=== PATIENT | female | born 1940 | race Caucasian/White ===

== ENCOUNTER 2017-02-11 15:49 | Inpatient (IN) | payer OTHER, MEDICARE ==
--- NOTE | 2017-02-11 15:53 | PDOC ---
Rapid Medical Evaluation Time Seen by Provider: 02/11/17 15:49 Medical Evaluation: Allergies Allergy/AdvReac Type Severity Reaction Status Date / Time No Known Allergies Allergy Verified 02/12/15 08:16 02/11/17 15:50 Pt presents to the ED:sob x 1week , sent in by PMD Pt on brief exam:vss 96% ra, lcta Pt ordered for: cxr Pt to proceed to the ED Discharge Disposition - Diagnosis SOB (shortness of breath) - Referrals - Patient Instructions - Post Discharge Activity
[2017-02-11 15:54] VITALS: BMI 36.1
--- NOTE | 2017-02-11 19:54 | PDOC ---
History of Present Illness - History of Present Illness Initial Comments: 02/11/17 20:53 The patient is a 76 year old female, with a significant past medical history of COPD, cardiomyopathy, HLD, HTN, who presents to the emergency department with daughter, sent by Dr. Diaz today for evaluation of increased exertional dyspnea and orthopnea for 2 weeks. The patient reportedly was evaluated by Dr. Diaz, prescribed a Z-Pack, which the patient states made the cough much better. She states she had a dry, cough initially, which has since been resolved. The patient states she has become more and more dyspneic when walking up or down the stairs in her home. She states she usually can walk the stairs at home, however, has been very short of breath by the time she gets to the bottom of the staircase. The patient states she sleeps with 3 pillows at baseline because it feels like I will suffocate if I lie flat. Secondarily, she reports her legs intermittently swell, and reports her lower extremities as more swollen today. The patient states she was given an oxygen machine in the past, however, denies using the machine until 2 days ago when she was short of breath at night. She also reports the man came to bring an updated machine today and a new tank. She denies chest pain, headache and dizziness. She denies fever, chills, nausea , vomit, diarrhea and constipation. She denies dysuria, frequency, urgency and hematuria. Allergies: NKDA Social history: non-smoker PCP - Dr. Diaz System Technologist: Dr. Fraire Assistant Manager Airside Operations: Dr. Sorensen (last seen 1 year ago) <Rosmery Oneal - Last Filed: 02/12/17 02:00> <Juan Grant - Last Filed: 02/12/17 02:13> - General Chief Complaint: Shortness of Breath Stated Complaint: PCP SENT/HEART FAILURE Time Seen by Provider: 02/11/17 15:49 Past History <Rosmery Oneal - Last Filed: 02/12/17 02:00> - Past Medical History Cardiac Disorders: Yes (enlarged heart) COPD: Yes HTN: Yes Hypercholesterolemia: Yes Psychiatric Problems: Yes (anxiety) - Suicide/Smoking/Psychosocial Hx Smoking History: Never smoked Hx Alcohol Use: No Drug/Substance Use Hx: No Substance Use Type: None Hx Substance Use Treatment: No <Juan Grant - Last Filed: 02/12/17 02:13> - Past Medical History Allergies/Adverse Reactions: Allergies Allergy/AdvReac Type Severity Reaction Status Date / Time No Known Allergies Allergy Verified 02/11/17 15:51 Home Medications: Ambulatory Orders Atorvastatin Ca [Lipitor] 80 mg PO HS 02/12/15 Isosorbide Mononitrate 30 mg PO DAILY 02/12/15 Metoprolol Tartrate 25 mg PO DAILY 02/12/15 Paroxetine HCl 10 mg PO DAILY 02/12/15 Albuterol 0.083% Nebulizer Basilia [Ventolin 0.083% Nebulizer Soln -] 1 amp NEB Q4HPO #120 amp 02/21/15 Furosemide [Lasix -] 40 mg PO DAILY #30 tablet 02/21/15 Guaifenesin AC [Robitussin AC -] 5 ml PO TID PRN #1 bottle 02/21/15 Tiotropium [place] [Spiriva -] 1 inh PO DAILY #1 inhaler 02/21/15 Valsartan [Diovan] 80 mg PO DAILY #30 tablet 02/21/15 Folic Acid 1 mg PO 02/12/17 Lorazepam 0.5 mg PO DAILY PRN 02/12/17 Review of Systems - Review of Systems Able to Perform ROS?: Yes Comments:: 02/11/17 20:53 CONSTITUTIONAL: No fever, no chills, no fatigue EYES: No visual changes ENT: No ear pain, no sore throat CARDIOVASCULAR: No chest pain, no palpitations RESPIRATORY: (+) dyspnea and orthopnea. No cough, GI: No abdominal pain, no nausea, no vomiting, no constipation, no diarrhea GENITOURINARY: No dysuria, no frequency, no hematuria EXTREMITIES: (+) lower extremity edema MUSKULOSKELETAL: No backpain, no joint pain, no myalgias SKIN: No rash NEURO: No headache <Rosmery Oneal - Last Filed: 02/12/17 02:00> *Physical Exam - Vital Signs Last Vital Signs Temp Pulse Resp BP Pulse Ox 98.4 F 71 28 H 167/88 96 02/11/17 15:51 02/11/17 15:51 02/11/17 15:51 02/11/17 15:51 02/11/17 15:51 - Physical Exam Comments: 02/11/17 20:54 CONSTITUTIONAL: (+) Awake, alert, and oriented x3, in no apparent distress HEAD: Normocephalic; atraumatic EYES: PERRL; EOM intact ENMT: External appears normal; normal oropharynx NECK: Supple; non-tender; no cervical lymphadenopathy CARD: Normal S1, S2; no murmurs, rubs, or gallops RESP: (+) conversational dyspnea. Normal chest excursion with respiration; breath sounds clear and equal bilaterally; no wheezes, rhonchi, or rales ABD: Soft, non-distended; non-tender; no palpable organomegaly, no palpable hernias EXT: (+) 2+ pitting edema to bilateral lower extremities. Normal ROM in all four extremities; non-tender to palpation; distal pulses intact SKIN: Warm, dry, no rash NEURO: No focal neurological deficiencies. <Rosmery Oneal - Last Filed: 02/12/17 02:00> - Vital Signs Last Vital Signs Temp Pulse Resp BP Pulse Ox 98.4 F 71 28 H 167/88 96 02/11/17 15:51 02/11/17 15:51 02/11/17 15:51 02/11/17 15:51 02/11/17 15:51 <Juan Grant - Last Filed: 02/12/17 02:13> Heart Score/ECG Review - ECG Intrepretation Comment:: 02/11/17 21:17 Ekg was read by Dr. Grant at 20:54 Impression: Normal sinus rhythm, left bundle branch block. Unchanged EKG when compared to prior from 04/25/15. <Rosmery Oneal - Last Filed: 02/12/17 02:00> ED Treatment Course - LABORATORY CBC & Chemistry Diagram: 02/11/17 21:00 02/11/17 21:00 - RADIOLOGY Radiograph Interpretation: EXAM#: TYPE/EXAM: RESULT: [id number] RAD/CHEST PA LAT EXAM: CHEST X-RAY-2 VIEWS. INDICATION: Shortness of breath. COMPARISON: 02/12/2015 chest x-ray. FINDINGS: Stable enlargement of the cardiac silhouette. There is no definite pulmonary vascular congestion. There is a small right pleural effusion. There is no consolidation. There is stable linear scarring in the left upper lobe and right midlung. There is subsegmental atelectasis and/or linear scarring in both lung bases. There is no definable pneumothorax. There are degenerative changes in the spine, glenohumeral and acromioclavicular joints. There is calcific atherosclerosis along the thoracic and abdominal aorta. IMPRESSION: Stable enlargement of the cardiac silhouette. Small right pleural effusion. No definite pulmonary vascular congestion. Bibasilar linear atelectasis and/or scarring. Reported By: Triston Wang DO 02/11/17 1609 02/12/17 02:00 EXAM: CTA CHEST Paraesophageal lymphadenopathy, advise followup. No definite PE, but evaluation limited by suboptimal contrast opacification. No aortic dissection or aneurysm. Small right greater than left pleural effusions. Cardiomegaly. Left renal cyst. Diverticulosis colon. Adele Joel M.D. 02/12/2017 01:57 EST <Rosmery Oneal - Last Filed: 02/12/17 02:00> - LABORATORY CBC & Chemistry Diagram: 02/11/17 21:00 02/11/17 21:00 <Juan Grant - Last Filed: 02/12/17 02:13> Medical Decision Making - Medical Decision Making 02/11/17 23:49 prior to being transported her her CT scan, patient states she feels very anxious and would like "something to calm the nerves". 02/12/17 01:47 IO was called ([id number]) after 1 hr of the image being transmitted to [facility] ( 00:47) without an official read from radiologist. The radiology services manager made 1 failed attempt at reaching the "on-Call". Upon 2nd attempt, I spoke another counter sales representative who states she "will send a message to Dr. Joel now" . Chest CTA pending read from [facility], assigned to radiologist, Adele Joel, at 01: 51 <Rosmery Oneal - Last Filed: 02/12/17 02:00> - Medical Decision Making 02/12/17 00:24 Patient 76-year-old female with history of COPD, cardiomyopathy, hypertension who presents to the ER with worsening dyspnea with minimal exertion over the past 7-14 days that was not effectively treated by by mouth Zithromax prescribed by the primary care physician. Patient reports resolution of a nonproductive dry cough upon completion of Zithromax therapy but no further improvement. Patient complains of intermittent increase in the bilateral lower extremity edema despite being compliant with her medication regimen; patient denies chest pain/fever/chills/nausea/vomiting/diarrhea. In the ER, patient is awake and alert, hypoxemic with saturation of 92-94% on room air, clear lungs to auscultation, no murmurs rubs or gallops and +2 pitting edema of the lower extremities. Differential diagnoses includes PE versus CHF exacerbation versus ACS. EKG reveals left bundle branch block which is unchanged from previous. Chest x-ray reveals cardiomegaly and a small right-sided pleural effusion. D- dimer is above 4000. Will rule out with CTA 02/12/17 01:53 Patient underwent CTA of chest with IV contrast. We'll administer a bolus of normal saline at 500 mL we noted to prevent contrast nephropathy followed by Lasix-40 mg IV push for diuresis. <Juan Grant - Last Filed: 02/12/17 02:13> *DC/Admit/Observation/Transfer - Attestations Scribe Attestion: 02/11/17 20:55 Documentation prepared by Rosmery Oneal, acting as paramedical aide for Juan Grant MD <Rosmery Oneal - Last Filed: 02/12/17 02:00> - Discharge Dispostion Admit: Yes - Attestations Physician Attestion: 02/12/17 00:24 The documentation was prepared by the scribe under my direct supervision. I have reviewed the documentation which correctly represents the findings, medical decision-making and critical action taken by me. <Juan Grant - Last Filed: 02/12/17 02:13> Diagnosis at time of Disposition: SOB (shortness of breath), Pleural effusion Acute exacerbation of CHF (congestive heart failure) Qualifiers: Congestive heart failure type: unspecified congestive heart failure type Qualified Code(s): I50.9 - Heart failure, unspecified - Discharge Dispostion Condition at time of disposition: Fair - Referrals Referrals: Princess Mcnamara MD [Primary Care Provider] - - Patient Instructions - Post Discharge Activity
[2017-02-11 21:09] LABS: BASO % 0.7 % (0-2.0); EOS % 4.1 % (0-4.5); HEMATOCRIT 34.9 % (32.4-45.2); HEMOGLOBIN 11.7 GM/dL (10.7-15.3); LYMPH % 20.8 % (8-40); MCH 31.1 pg (25.7-33.7); MCHC 33.4 g/dl (32.0-36.0); MEAN PLT VOLUME 6.6 fl (7.5-11.1); NEUT % 63.4 % (42.8-82.8); PLATELET COUNT 259 K/MM3 (134-434); RBC 3.76 M/mm3 (3.60-5.2); RDW 13.2 % (11.6-15.6); WHITE BLOOD COUNT 7.2 K/mm3 (4.0-10.0)
[2017-02-11 21:27] LABS: INR 1.08 (0.82-1.09); PROTHROMBIN TIME (PATIENT) 12.2 SEC (9.98-11.88)
[2017-02-11 21:33] LABS: ALBUMIN 3.2 g/dl (3.4-5.0); ANION GAP 5 (8-16); BILIRUBIN,TOTAL 0.4 mg/dL (0.2-1.0); BLOOD UREA NITROGEN 13 mg/dL (7-18); CALCIUM 8.1 mg/dL (8.5-10.1); CHLORIDE 108 mmol/L (98-107); CO2 29 mmol/L (21-32); CREATININE 0.7 mg/dL (0.55-1.02); GLUCOSE,RANDOM 108 mg/dL (74-106); POTASSIUM 3.6 mmol/L (3.5-5.1); SGOT/AST 16 U/L (15-37); SGPT/ALT 33 U/L (12-78); SODIUM 142 mmol/L (136-145); TOT PROT 6.2 g/dl (6.4-8.2)
[2017-02-11 21:36] LABS: ALK PHOS 119 U/L (45-117); N-TERMINAL BNP 1880.76 pg/ml (5-450)
[2017-02-11] MEDS ORDERED: ALPRAZolam 0.25 MG TABLET ONE (23:47)
[2017-02-11] MEDS ORDERED: ALPRAZolam 0.25 MG TABLET PO ONE (23:49)
[2017-02-12] MEDS ORDERED: SODIUM CHLORIDE 500 ML IV STA (01:54)
[2017-02-12] MEDS ORDERED: FUROSEMIDE 40 MG/4 ML INJECTABLE VIAL IVPUSH ONE (01:54)
--- NOTE | 2017-02-12 02:29 | HP ---
Admitting History and Physical - Primary Care Physician PCP: Princess Mcnamara - Admission Chief Complaint: SOB, [place] History Source: Patient - Past Medical History Cardiovascular: Yes: CHF, HTN Pulmonary: Yes: COPD - Smoking History Smoking history: Never smoked - Alcohol/Substance Use Hx Alcohol Use: No History of Substance Use: reports: None Home Medications - Allergies Allergies/Adverse Reactions: Allergies Allergy/AdvReac Type Severity Reaction Status Date / Time No Known Allergies Allergy Verified 02/11/17 15:51 - Home Medications Home Medications: Ambulatory Orders Atorvastatin Ca [Lipitor] 80 mg PO HS 02/12/15 Isosorbide Mononitrate 30 mg PO DAILY 02/12/15 Metoprolol Tartrate 25 mg PO DAILY 02/12/15 Paroxetine HCl 10 mg PO DAILY 02/12/15 Albuterol 0.083% Nebulizer Basilia [Ventolin 0.083% Nebulizer Soln -] 1 amp NEB Q4HPO #120 amp 02/21/15 Furosemide [Lasix -] 40 mg PO DAILY #30 tablet 02/21/15 Guaifenesin AC [Robitussin AC -] 5 ml PO TID PRN #1 bottle 02/21/15 Tiotropium [place] [Spiriva -] 1 inh PO DAILY #1 inhaler 02/21/15 Valsartan [Diovan] 80 mg PO DAILY #30 tablet 02/21/15 Folic Acid 1 mg PO 02/12/17 Lorazepam 0.5 mg PO DAILY PRN 02/12/17 Family Disease History - Family Disease History Family History: Unable to Obtain Review of Systems - Review of Systems Constitutional: reports: No Symptoms Eyes: reports: No Symptoms HENT: reports: No Symptoms Neck: reports: No Symptoms Cardiovascular: reports: Shortness of Breath Respiratory: reports: Cough, SOB, SOB on Exertion Gastrointestinal: reports: No Symptoms Genitourinary: reports: No Symptoms Breasts: reports: No Symptoms Reported Musculoskeletal: reports: No Symptoms Integumentary: reports: No Symptoms Neurological: reports: No Symptoms Endocrine: reports: No Symptoms Hematology/Lymphatic: reports: No Symptoms Psychiatric: reports: No Symptoms Physical Examination Vital Signs: Vital Signs Temperature 98.4 F 02/11/17 15:51 Pulse Rate 71 02/11/17 15:51 Respiratory Rate 28 H 02/11/17 15:51 Blood Pressure 167/88 02/11/17 15:51 O2 Sat by Pulse Oximetry (%) 98 02/12/17 00:08 Labs: CBC, BMP 02/11/17 21:00 02/11/17 21:00 Imaging - Results Chest X-ray: Report Reviewed, Image Reviewed Cat Scan: Report Reviewed, Image Reviewed EKG: Image Reviewed Problem List - Problems (1) Acute exacerbation of CHF (congestive heart failure) Code(s): I50.9 - HEART FAILURE, UNSPECIFIED Qualifiers: Congestive heart failure type: unspecified congestive heart failure type Qualified Code(s): I50.9 - Heart failure, unspecified (2) Pleural effusion Code(s): J90 - PLEURAL EFFUSION, NOT ELSEWHERE CLASSIFIED (3) SOB (shortness of breath) Code(s): R06.02 - SHORTNESS OF BREATH (4) Anxiety Code(s): F41.9 - ANXIETY DISORDER, UNSPECIFIED (5) HLD (hyperlipidemia) Code(s): E78.5 - HYPERLIPIDEMIA, UNSPECIFIED (6) HTN (hypertension) Code(s): I10 - ESSENTIAL (PRIMARY) HYPERTENSION (7) Obesity Code(s): E66.9 - OBESITY, UNSPECIFIED (8) Sleep apnea Code(s): G47.30 - SLEEP APNEA, UNSPECIFIED Assessment/Plan This is a 76 y/o woman with a past medical history of CHF, HTN, COPD, Anxiety. Who presents to the ED with increased SOB, [place] x 1-2 weeks. Patient reports having a dry cough which was treated with a Z-brennan- resolved. Visit type - Emergency Visit Emergency Visit: Yes ED Registration Date: 02/11/17 Care time: The patient presented to the Emergency Department on the above date and was hospitalized for further evaluation of their emergent condition. - New Patient This patient is new to me today: Yes Date on this admission: 02/12/17 - Critical Care Critical Care patient: No
[2017-02-12] MEDS ORDERED: FUROSEMIDE 40 MG/4 ML INJECTABLE VIAL ONE ×2 (02:54→12:06)
[2017-02-12 07:40] LABS: BASO % 0.8 % (0-2.0); EOS % 5.5 % (0-4.5); HEMATOCRIT 36.3 % (32.4-45.2); HEMOGLOBIN 11.9 GM/dL (10.7-15.3); LYMPH % 25.3 % (8-40); MCH 30.6 pg (25.7-33.7); MCHC 32.9 g/dl (32.0-36.0); MEAN CELL VOLUME 93.3 fl (80-96); MONO % 9.5 % (3.8-10.2); NEUT % 58.9 % (42.8-82.8); PLATELET COUNT 260 K/MM3 (134-434); RBC 3.89 M/mm3 (3.60-5.2); WHITE BLOOD COUNT 6.9 K/mm3 (4.0-10.0)
[2017-02-12 07:58] LABS: ANION GAP 7 (8-16); BLOOD UREA NITROGEN 11 mg/dL (7-18); CALCIUM 8.4 mg/dL (8.5-10.1); CHLORIDE 106 mmol/L (98-107); CO2 30 mmol/L (21-32); CREATININE 0.7 mg/dL (0.55-1.02); GLUCOSE,RANDOM 99 mg/dL (74-106); MAGNESIUM 2.1 mg/dL (1.8-2.4); PHOSPHOROUS 3.9 mg/dL (2.5-4.9); POTASSIUM 3.4 mmol/L (3.5-5.1); SODIUM 143 mmol/L (136-145)
[2017-02-12] MEDS ORDERED: LORazepam 0.5 MG TABLET PO PRN (10:16)
[2017-02-12] MEDS ORDERED: POTASSIUM CHLORIDE TABS 20 MEQ TABLET.ER (FP) PO ONE (10:18)
--- NOTE | 2017-02-12 10:21 | PN ---
Progress Note, Physician Chief Complaint: Ms Rudd says she is feeling better but still with shortness of breath. No cp. Says she has edema in her legs that is unchanged. - Current Medication List Current Medications: Active Medications Albuterol Sulfate (Ventolin 0.083% Nebulizer Soln -) 1 amp NEB Q4HPO RAGHU Atorvastatin Calcium (Lipitor -) 80 mg PO HS RAGHU Furosemide (Lasix Injection -) 40 mg IVPUSH DAILY RAGHU Isosorbide Mononitrate (Imdur -) 30 mg PO DAILY RAGHU Lorazepam (Ativan -) 0.5 mg PO DAILY PRN PRN Reason: ANXIETY Metoprolol Tartrate (Lopressor -) 25 mg PO DAILY RAGHU Paroxetine HCl (Paxil -) 10 mg PO DAILY RAGHU Potassium Chloride (K-Dur -) 40 meq PO ONCE ONE Stop: 02/12/17 10:19 Tiotropium [place] (Spiriva -) 1 puff IH DAILY RAGHU Valsartan (Diovan -) 80 mg PO DAILY RAGHU - Objective Vital Signs: Vital Signs Temperature 36.9 C 02/12/17 06:48 Pulse Rate 78 02/12/17 06:48 Respiratory Rate 19 02/12/17 06:48 Blood Pressure 145/68 02/12/17 06:48 O2 Sat by Pulse Oximetry (%) 98 02/12/17 06:48 Constitutional: Yes: No Distress, Calm, Obese Cardiovascular: Yes: Regular Rate and Rhythm. No: Gallop, Murmur, Rub Respiratory: Yes: Regular, CTA Bilaterally, On Nasal O2. No: Rales, Rhonchi, Wheezes Gastrointestinal: Yes: Normal Bowel Sounds, Soft. No: Distention, Tenderness Extremities: Yes: WNL Edema: Yes Edema: LLE: 1+, RLE: 1+ Labs: CBC, BMP 02/12/17 06:00 02/12/17 06:00 INR, PTT INR 1.08 (0.82-1.09) 02/11/17 21:00 Problem List - Problems (1) Acute exacerbation of CHF (congestive heart failure) Assessment/Plan: -patient presents with acute on chronic CHF exacerbation -admit to telemetry -diurese with IV lasix -secondary to diet indiscretion, patient says she ate ham over the holiday -counselled on a low salt diet -cardiology consult -I/Os and daily weights -monitor for improvement Code(s): I50.9 - HEART FAILURE, UNSPECIFIED Qualifiers: Congestive heart failure type: diastolic Qualified Code(s): I50.33 - Acute on chronic diastolic (congestive) heart failure (2) COPD (chronic obstructive pulmonary disease) Assessment/Plan: -pulmonary consulted overnight -clinically patient does not appear to have acute COPD exacerbation -continue home regimen -no need for systemic steroids Code(s): J44.9 - CHRONIC OBSTRUCTIVE PULMONARY DISEASE, UNSPECIFIED Qualifiers: COPD type: unspecified COPD Qualified Code(s): J44.9 - Chronic obstructive pulmonary disease, unspecified (3) HLD (hyperlipidemia) Assessment/Plan: -continue lipitor Code(s): E78.5 - HYPERLIPIDEMIA, UNSPECIFIED (4) HTN (hypertension) Assessment/Plan: -continue metoprolol, losartan, and imdur -also on IV lasix currently -patient with SBP in the 140s, not ideal for patient with diastolic dysfunction -will monitor, may need to adjust hypertensive regimen Code(s): I10 - ESSENTIAL (PRIMARY) HYPERTENSION (5) Obesity Assessment/Plan: -counselled on diet -outpatient weight loss program Code(s): E66.9 - OBESITY, UNSPECIFIED Qualifiers: Obesity type: due to excess calories Obesity classification: adult class 2 (BMI 35 - 39.9) Serious obesity comorbidity presence: with serious comorbidity Body mass index: BMI 36.0-36.9 Qualified Code(s): E66.01 - Morbid (severe) obesity due to excess calories; Z68.36 - Body mass index (BMI) 36.0-36.9, adult; Z68.36 - Body mass index (BMI) 36.0-36.9, adult
[2017-02-12] MEDS: ISOSORBIDE MONONITRATE 30 MG TAB.SR.24H (FP) PO SCH (12:03)
[2017-02-12] MEDS: VALSARTAN 80 MG TABLET (UD) PO SCH (12:03)
[2017-02-12] MEDS: METOPROLOL TARTRATE 25 MG TABLET (FP) PO SCH (12:04)
[2017-02-12] MEDS: PARoxetine HCL 10 MG TABLET (FP) PO SCH (12:05)
[2017-02-12] MEDS: FUROSEMIDE 40 MG/4 ML INJECTABLE VIAL IVPUSH SCH (12:07)
--- NOTE | 2017-02-12 13:28 | EKG ---
Test Reason : Blood Pressure : / mmHG Vent. Rate : 067 BPM Atrial Rate : 067 BPM P-R Int : 162 ms QRS Dur : 162 ms QT Int : 492 ms P-R-T Axes : 067 019 113 degrees QTc Int : 519 ms NORMAL SINUS RHYTHM LEFT BUNDLE BRANCH BLOCK ABNORMAL ECG WHEN COMPARED WITH ECG OF 12-FEB-2015 08:11, FUSION COMPLEXES ARE NO LONGER PRESENT T WAVE INVERSION MORE EVIDENT IN LATERAL LEADS Confirmed by LEAH OTERO, TRINY ([id number]) on 02/12/2017 1:27:59 PM Referred By: Confirmed By:TRINY LYNN MD
--- NOTE | 2017-02-12 15:04 | CON.PULM ---
Consult Consult Specialty:: PULMONARY Referred by:: WES Reason for Consultation:: SOB - History of Present Illness Chief Complaint: [place] History of Present Illness: The patient is a 76 year old female, with a significant past medical history of COPD, cardiomyopathy, HLD, HTN, who presents to the emergency department sent by Dr. Diaz today for evaluation of increased exertional dyspnea and orthopnea for 2 weeks. The patient reportedly was evaluated by Dr. Diaz, prescribed a Z-Pack, which the patient states made the cough much better. She states she had a dry, cough initially, which has since been resolved. The patient states she has become more and more dyspneic when walking up or down the stairs in her home. She has home o2 which she does not use and admits to 3 pillow orthopnea. 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 No: AFIB Pulmonary: Yes: COPD Gastrointestinal: No: Ascites, Cancer Hepatobiliary: No: Cirrhosis Renal/: No: Renal Failure Reproductive: Yes: Postmenopausal Heme/Onc: Yes: Anemia Infectious Disease: No: AIDS Psych: No: Addictions Musculoskeletal: No: Bursitis Rheumatology: No: Fibromyalgia ENT: No: Allergic Rhinitis Endocrine: No: Diabetes Mellitus - Past Surgical History Past Surgical History: Yes: None - Alcohol/Substance Use Hx Alcohol Use: No History of Substance Use: reports: None - Smoking History Smoking history: Never smoked - Social History Place of : Other History of Recent Travel: No Home Medications - Allergies Allergies/Adverse Reactions: Allergies Allergy/AdvReac Type Severity Reaction Status Date / Time No Known Allergies Allergy Verified 02/11/17 15:51 - Home Medications Home Medications: Ambulatory Orders Atorvastatin Ca [Lipitor] 80 mg PO HS 02/12/15 Isosorbide Mononitrate 30 mg PO DAILY 02/12/15 Metoprolol Tartrate 25 mg PO DAILY 02/12/15 Paroxetine HCl 10 mg PO DAILY 02/12/15 Albuterol 0.083% Nebulizer [place] [Ventolin 0.083% Nebulizer Soln -] 1 amp NEB Q4HPO #120 amp 02/21/15 Furosemide [Lasix -] 40 mg PO DAILY #30 tablet 02/21/15 Tiotropium [place] [Spiriva -] 1 inh PO DAILY #1 inhaler 02/21/15 Valsartan [Diovan] 80 mg PO DAILY #30 tablet 02/21/15 Lorazepam 0.5 mg PO DAILY PRN 02/12/17 Family Disease History - Family Disease History Family History: Unremarkable Review of Systems - Review of Systems Constitutional: denies: Fever, Lethargy, Loss of Appetite Eyes: denies: Blurred Vision HENT: denies: Difficult Swallowing Neck: denies: Decreased ROM Cardiovascular: denies: Chest Pain Respiratory: reports: Cough, Orthopnea, SOB on Exertion. denies: Hemoptysis Gastrointestinal: denies: Abdominal Pain Genitourinary: denies: Burning Physical Exam Vital Sings: Vital Signs Temperature 98.5 F 02/12/17 06:48 Pulse Rate 78 02/12/17 06:48 Respiratory Rate 19 02/12/17 06:48 Blood Pressure 145/68 02/12/17 06:48 O2 Sat by Pulse Oximetry (%) 98 02/12/17 06:48 Constitutional: Yes: Calm Eyes: Yes: EOM Intact HENT: Yes: Normocephalic Neck: Yes: Trachea Midline Cardiovascular: Yes: Regular Rate and Rhythm, S1, S2 Respiratory: Yes: Diminished, Rales (bases) Gastrointestinal: Yes: Normal Bowel Sounds, Soft, Abdomen, Obese Renal/: Yes: WNL Musculoskeletal: Yes: WNL Edema: LLE: 1+, RLE: 1+ Neurological: Yes: Alert ...Motor Strength: WNL Psychiatric: Yes: WNL Labs: CBC, BMP 02/12/17 06:00 02/12/17 06:00 rest reviewed Imaging - Results Chest X-ray: Report Reviewed, Image Reviewed Cat Scan: Report Reviewed, Image Reviewed EKG: Report Reviewed, Image Reviewed Problem List - Problems (1) Acute exacerbation of CHF (congestive heart failure) Code(s): I50.9 - HEART FAILURE, UNSPECIFIED Qualifiers: Congestive heart failure type: unspecified congestive heart failure type Qualified Code(s): I50.9 - Heart failure, unspecified (2) SOB (shortness of breath) Code(s): R06.02 - SHORTNESS OF BREATH (3) COPD exacerbation Code(s): J44.1 - CHRONIC OBSTRUCTIVE PULMONARY DISEASE W (ACUTE) EXACERBATION (4) HLD (hyperlipidemia) Code(s): E78.5 - HYPERLIPIDEMIA, UNSPECIFIED (5) HTN (hypertension) Code(s): I10 - ESSENTIAL (PRIMARY) HYPERTENSION (6) Obesity Code(s): E66.9 - OBESITY, UNSPECIFIED Assessment/Plan PROGRESSIVE ORTHOPNEA/[place] LIKELY ON BASIS OF WORSENING HF ECHO(2014) LVH/LVD/LVDD NO CLINICAL/RADIOGRAPHICAL EVIDENCE TO SUPPORT PNEUMONIA/PE NONCOMPLIANT WITH HOME O2 COPD O2 TO MAINTAIN SAT>90% BRONCHODILATORS NEEDED ARB/DIURETIC/BETA-SRAVANI ORDERED NA RESTRICT DIET DAILY WEIGHTS ECHO/CARDIO CONSULT AWAITED NO NEED FOR ANTIBIOTICS/STEROIDS AT THIS TIME Gato GONZALEZ MD
--- NOTE | 2017-02-12 17:52 | CON.CARD ---
Cardiology Consult (text) - Consultation Consultation Note: CC: sob 76 with h/o HTN, hl, pulm htn, known lbbb, diastolic hf on po lasix, copd/ chronic bronchitis (previously prescribed home O2 but doesn't use regularly), anxiety who p/w progressive carbajal. + cough, improving since recent Z-Pack The patient states she has become more and more dyspneic when walking up or down the stairs in her home. She states she usually can walk the stairs at home , however, has been very short of breath by the time she gets to the bottom of the staircase 3 pillows orthopnea unchanged, but with new PND. --> Worse the past couple of nights, preventing sleep. dietary indiscretions over xmas --> subsequent worsening of LE edema. endorses 8 lb weight gain this month. She denies chest pain, dizziness, palps. She denies fever, chills, sweats, h/a, nausea, vomit, diarrhea and constipation. She denies dysuria, frequency, urgency received 500 cc ivf initially in ER. then IV lasix 40 mg x 2 today with improvement in sx's. pmhx/pshx: per phi Social history: never smoker (2nd hand exposure) fam hx: no cardiac history ros: per hpi PCP - Dr. Diaz Records Management Coordinator: Dr. Fraire Program/Music Director: Dr. Sorensen (last seen 1 year ago) Ambulatory Orders Atorvastatin Ca [Lipitor] 80 mg PO HS 02/12/15 Isosorbide Mononitrate 30 mg PO DAILY 02/12/15 Metoprolol Tartrate 25 mg PO DAILY 02/12/15 Paroxetine HCl 10 mg PO DAILY 02/12/15 Albuterol 0.083% Nebulizer [place] [Ventolin 0.083% Nebulizer Soln -] 1 amp NEB Q4HPO #120 amp 02/21/15 Furosemide [Lasix -] 40 mg PO DAILY #30 tablet 02/21/15 Tiotropium [place] [Spiriva -] 1 inh PO DAILY #1 inhaler 02/21/15 Valsartan [Diovan] 80 mg PO DAILY #30 tablet 02/21/15 Lorazepam 0.5 mg PO DAILY PRN 02/12/17 Current Medications Albuterol Sulfate (Ventolin 0.083% Nebulizer Soln -) 1 amp NEB Q4HWA [facility] Atorvastatin Calcium (Lipitor -) 80 mg PO HS [facility] Furosemide (Lasix Injection -) 40 mg IVPUSH DAILY [facility] Last Admin: 02/12/17 12:07 Dose: 40 mg Isosorbide Mononitrate (Imdur -) 30 mg PO DAILY [facility] Last Admin: 02/12/17 12:03 Dose: 30 mg Lorazepam (Ativan -) 0.5 mg PO DAILY PRN PRN Reason: ANXIETY Metoprolol Tartrate (Lopressor -) 25 mg PO DAILY [facility] Last Admin: 02/12/17 12:04 Dose: 25 mg Paroxetine HCl (Paxil -) 10 mg PO DAILY [facility] Last Admin: 02/12/17 12:05 Dose: 10 mg Tiotropium [place] (Spiriva -) 1 puff IH DAILY [facility] Valsartan (Diovan -) 80 mg PO DAILY [facility] Last Admin: 02/12/17 12:03 Dose: 80 mg Vital Signs - 24 hr 02/12/17 02/12/17 00:08 06:48 Temperature 98.5 F Pulse Rate [ 78 Right Radial] Respiratory 19 Rate Blood Pressure 145/68 [Left Arm] O2 Sat by Pulse 98 98 Oximetry (%) Intake & Output 02/10/17 02/11/17 02/12/17 02/13/17 07:59 07:59 07:59 07:59 Intake Total 500 Output Total 1200 Balance -700 Weight 204 lb nad, calm jvd elevated, neck supple rrr nl s1, s2 2/6 sys murmur at lsb and apex bibasilar rales, nl effort + bs soft nt nd ext with trace -1 + edema. chronic venous stasis changes aaox3 no jaundice, diaphoresis no carotid bruits diminished dp/pt CBC, BMP 02/12/17 06:00 02/12/17 06:00 Laboratory Tests 02/12/15 02/11/17 02/11/17 08:26 21:00 21:00 INR 1.08 D-Dimer Magnesium Total Bilirubin 0.4 AST 16 D ALT 33 Alkaline Phosphatase 119 H D Creatine Kinase 257 H B-Natriuretic Peptide 1710.68 H 1880.76 H Creatine Kinase Index 1.1 CK-MB (CK-2) 2.971 Troponin I 0.04 Albumin 3.2 L 02/11/17 02/12/17 21:20 06:00 INR D-Dimer 4612 H Magnesium 2.1 Total Bilirubin AST ALT Alkaline Phosphatase Creatine Kinase B-Natriuretic Peptide Creatine Kinase Index CK-MB (CK-2) Troponin I Albumin ekg: Lbbb tele: sr pvc's. echo 01/2017: nl lv size/fn. tds for rwma. rv not well seen. mod unruly. 1+ mr/ tr. rvsp 40-50. chest cta 01/2017: no PE. small bilateral pleural effusions. Of note also with calcified cors by my review Mayra stress MPI 06/2012: small, mild reversible anterior wall defect c/w anterior ischemia vs variable breast attenuation artifact. 76 with h/o HTN, hl, pulm htn, known lbbb, diastolic hf on po lasix, copd/ chronic bronchitis (previously prescribed home O2 but doesn't use regularly), anxiety who p/w progressive carbajal. carbajal/acute diastolic hf exacerbation - sx's improving with IV lasix. con't and assess need for uptitration of dose tomorrow. daily weights, bmp - echo without new structural abnormalities. - mgm't of copd contribution per pmd - troponins only ordered x 1, but negative. echo tds for rwma but grossly nl EF. If continues to have residual sx's despite treatment of copd/chf can consider need for ischemic work up. - lyte repletion htn - controlled on home regimen hl - con't statin
[2017-02-12] MEDS: ALBUTEROL SO4 0.083% IH SOL 2.5 MG/3 ML VIAL.NEB. NEB SCH ×3 (18:29→22:13)
[2017-02-12] MEDS: TIOTROPIUM BROMIDE 18 MCG/INH (DEVICE W/ 5 CAPSULES) IH SCH (19:53)
[2017-02-12] MEDS: ATORVASTATIN CA 80 MG TABLET (FP) PO SCH (21:02)
[2017-02-13] MEDS: ALBUTEROL SO4 0.083% IH SOL 2.5 MG/3 ML VIAL.NEB. NEB SCH ×5 (06:47→22:25)
[2017-02-13] MEDS ORDERED: PT OWN MED DRAWER 7, Y5N ONE (09:59)
[2017-02-13] MEDS: ISOSORBIDE MONONITRATE 30 MG TAB.SR.24H (FP) PO SCH (10:03)
[2017-02-13] MEDS: FUROSEMIDE 40 MG/4 ML INJECTABLE VIAL IVPUSH SCH (10:03)
[2017-02-13] MEDS: VALSARTAN 80 MG TABLET (UD) PO SCH ×2 (10:03→21:13)
[2017-02-13] MEDS: METOPROLOL TARTRATE 25 MG TABLET (FP) PO SCH (10:03)
[2017-02-13] MEDS: TIOTROPIUM BROMIDE 18 MCG/INH (DEVICE W/ 5 CAPSULES) IH SCH (10:03)
[2017-02-13] MEDS: PARoxetine HCL 10 MG TABLET (FP) PO SCH (10:20)
--- NOTE | 2017-02-13 11:08 | PN ---
Progress Note, Physician Chief Complaint: Ms Rudd says she is feeling better and her breathing is much improved. No cp or n/v. - Current Medication List Current Medications: Active Medications Albuterol Sulfate (Ventolin 0.083% Nebulizer Soln -) 1 amp NEB Q4HWA [facility] Last Admin: 02/13/17 10:10 Dose: 1 amp Atorvastatin Calcium (Lipitor -) 80 mg PO HS [facility] Last Admin: 02/12/17 21:02 Dose: 80 mg Furosemide (Lasix Injection -) 40 mg IVPUSH DAILY [facility] Last Admin: 02/13/17 10:03 Dose: 40 mg Isosorbide Mononitrate (Imdur -) 30 mg PO DAILY [facility] Last Admin: 02/13/17 10:03 Dose: 30 mg Lorazepam (Ativan -) 0.5 mg PO DAILY PRN PRN Reason: ANXIETY Last Admin: 02/12/17 21:02 Dose: 0.5 mg Metoprolol Tartrate (Lopressor -) 25 mg PO DAILY [facility] Last Admin: 02/13/17 10:03 Dose: 25 mg Paroxetine HCl (Paxil -) 10 mg PO DAILY [facility] Last Admin: 02/13/17 10:20 Dose: 10 mg Tiotropium [place] (Spiriva -) 1 puff IH DAILY [facility] Last Admin: 02/13/17 10:03 Dose: 1 puff Valsartan (Diovan -) 80 mg PO BID [facility] - Objective Vital Signs: Vital Signs Temperature 36.4 C L 02/13/17 05:42 Pulse Rate 65 02/13/17 05:42 Respiratory Rate 20 02/13/17 05:42 Blood Pressure 146/63 02/13/17 05:42 O2 Sat by Pulse Oximetry (%) 95 02/12/17 22:00 Constitutional: Yes: No Distress, Calm, Obese Cardiovascular: Yes: Regular Rate and Rhythm. No: Gallop, Murmur, Rub Respiratory: Yes: Regular, CTA Bilaterally. No: On Nasal O2, Rales, Rhonchi, Wheezes Gastrointestinal: Yes: Normal Bowel Sounds, Soft. No: Distention, Tenderness Extremities: Yes: WNL Edema: Yes Edema: LLE: 2+, RLE: 2+ Labs: CBC, BMP 02/12/17 06:00 02/12/17 06:00 INR, PTT INR 1.08 (0.82-1.09) 02/11/17 21:00 Problem List - Problems (1) Acute exacerbation of CHF (congestive heart failure) Code(s): I50.9 - HEART FAILURE, UNSPECIFIED Qualifiers: Congestive heart failure type: diastolic Qualified Code(s): I50.33 - Acute on chronic diastolic (congestive) heart failure (2) COPD (chronic obstructive pulmonary disease) Code(s): J44.9 - CHRONIC OBSTRUCTIVE PULMONARY DISEASE, UNSPECIFIED Qualifiers: COPD type: unspecified COPD Qualified Code(s): J44.9 - Chronic obstructive pulmonary disease, unspecified (3) HLD (hyperlipidemia) Code(s): E78.5 - HYPERLIPIDEMIA, UNSPECIFIED (4) HTN (hypertension) Code(s): I10 - ESSENTIAL (PRIMARY) HYPERTENSION (5) Obesity Code(s): E66.9 - OBESITY, UNSPECIFIED Qualifiers: Obesity type: due to excess calories Obesity classification: adult class 2 (BMI 35 - 39.9) Serious obesity comorbidity presence: with serious comorbidity Body mass index: BMI 36.0-36.9 Qualified Code(s): E66.01 - Morbid (severe) obesity due to excess calories; Z68.36 - Body mass index (BMI) 36.0-36.9, adult; Z68.36 - Body mass index (BMI) 36.0-36.9, adult Assessment/Plan (1) Acute exacerbation of CHF (congestive heart failure) Assessment/Plan: -patient improving -continue IV lasix -cardiology note reviewed Code(s): I50.9 - HEART FAILURE, UNSPECIFIED Qualifiers: Congestive heart failure type: diastolic Qualified Code(s): I50.33 - Acute on chronic diastolic (congestive) heart failure (2) COPD (chronic obstructive pulmonary disease) Assessment/Plan: -stable -continue current management Code(s): J44.9 - CHRONIC OBSTRUCTIVE PULMONARY DISEASE, UNSPECIFIED Qualifiers: COPD type: unspecified COPD Qualified Code(s): J44.9 - Chronic obstructive pulmonary disease, unspecified (3) HLD (hyperlipidemia) Assessment/Plan: -continue lipitor Code(s): E78.5 - HYPERLIPIDEMIA, UNSPECIFIED (4) HTN (hypertension) Assessment/Plan: -not at goal for patient with diastolic dysfunction -patient does not know home BP, suspect elevated -will change diovan to bid dosing as recommended for HF Code(s): I10 - ESSENTIAL (PRIMARY) HYPERTENSION (5) Obesity Assessment/Plan: -counselled on diet -outpatient weight loss program Code(s): E66.9 - OBESITY, UNSPECIFIED Qualifiers: Obesity type: due to excess calories Obesity classification: adult class 2 (BMI 35 - 39.9) Serious obesity comorbidity presence: with serious comorbidity Body mass index: BMI 36.0-36.9 Qualified Code(s): E66.01 - Morbid (severe) obesity due to excess calories; Z68.36 - Body mass index (BMI) 36.0-36.9, adult; Z68.36 - Body mass index (BMI) 36.0-36.9, adult
--- NOTE | 2017-02-13 11:48 | PN ---
Progress Note (short form) - Note Progress Note: s: no cp sob palps dizzy, le edema better o: Vital Signs Period Temp Pulse Resp BP Sys/Ambrose Pulse Ox Last 24 Hr 97.5 F-98.6 F 64-76 18-20 131-156/63-72 95-95 nad, calm jvd elevated, neck supple rrr nl s1, s2 2/6 sys murmur at lsb and apex cta bl nl effort + bs soft nt nd ext with trace -1 + edema. chronic venous stasis changes aaox3 no jaundice, diaphoresis Current Medications Generic Name Dose Route Start Last Admin Trade Name Freq PRN Reason Stop Dose Admin Albuterol Sulfate 1 amp 02/12/17 14:00 02/13/17 10:10 Ventolin 0.083% Nebulizer Soln - NEB 1 amp Q4HWA [facility] Administration Atorvastatin Calcium 80 mg 02/12/17 22:00 02/12/17 21:02 Lipitor - PO 80 mg HS [facility] Administration Furosemide 40 mg 02/12/17 10:30 02/13/17 10:03 Lasix Injection - IVPUSH 40 mg DAILY [facility] Administration Isosorbide Mononitrate 30 mg 02/12/17 10:30 02/13/17 10:03 Imdur - PO 30 mg DAILY [facility] Administration Loratadine 10 mg 02/13/17 11:15 Claritin - PO DAILY [facility] Lorazepam 0.5 mg 02/12/17 10:16 02/12/17 21:02 Ativan - PO 0.5 mg DAILY PRN Administration ANXIETY Metoprolol Tartrate 25 mg 02/12/17 10:30 02/13/17 10:03 Lopressor - PO 25 mg DAILY [facility] Administration Paroxetine HCl 10 mg 02/12/17 10:30 02/13/17 10:20 Paxil - PO 10 mg DAILY [facility] Administration Tiotropium [place] 1 puff 02/12/17 10:30 02/13/17 10:03 Spiriva - IH 1 puff DAILY [facility] Administration Valsartan 80 mg 02/13/17 22:00 Diovan - PO BID [facility] CBC, BMP 02/12/17 06:00 02/12/17 06:00 ekg: Lbbb tele: sr pvc's. echo 01/2017: nl lv size/fn. tds for rwma. rv not well seen. mod unruly. 1+ mr/ tr. rvsp 40-50. chest cta 01/2017: no PE. small bilateral pleural effusions. Of note also with calcified cors by my review Mayra stress MPI 06/2012: small, mild reversible anterior wall defect c/w anterior ischemia vs variable breast attenuation artifact. a/p: 76 with h/o HTN, hl, pulm htn, known lbbb, diastolic hf on po lasix, copd/ chronic bronchitis (previously prescribed home O2 but doesn't use regularly), anxiety who p/w progressive carbajal. carbajal/acute diastolic hf exacerbation - sx's improving with IV lasix. con't same. daily weights, bmp - echo without new structural abnormalities. htn - controlled on home regimen hld - con't statin
[2017-02-13] MEDS: LORATADINE 10 MG TABLET PO SCH (12:42)
--- NOTE | 2017-02-13 13:35 | PN ---
Progress Note, Physician History of Present Illness: PULMONARY ALERT,FEELING BETTER,LESS DYSPNEIC,-CP,LESS COUGH - Current Medication List Current Medications: Active Medications Albuterol Sulfate (Ventolin 0.083% Nebulizer Soln -) 1 amp NEB Q4HWA [facility] Last Admin: 02/13/17 10:10 Dose: 1 amp Atorvastatin Calcium (Lipitor -) 80 mg PO HS [facility] Last Admin: 02/12/17 21:02 Dose: 80 mg Furosemide (Lasix Injection -) 40 mg IVPUSH DAILY [facility] Last Admin: 02/13/17 10:03 Dose: 40 mg Isosorbide Mononitrate (Imdur -) 30 mg PO DAILY [facility] Last Admin: 02/13/17 10:03 Dose: 30 mg Loratadine (Claritin -) 10 mg PO DAILY [facility] Last Admin: 02/13/17 12:42 Dose: 10 mg Lorazepam (Ativan -) 0.5 mg PO DAILY PRN PRN Reason: ANXIETY Last Admin: 02/12/17 21:02 Dose: 0.5 mg Metoprolol Tartrate (Lopressor -) 25 mg PO DAILY [facility] Last Admin: 02/13/17 10:03 Dose: 25 mg Paroxetine HCl (Paxil -) 10 mg PO DAILY [facility] Last Admin: 02/13/17 10:20 Dose: 10 mg Tiotropium [place] (Spiriva -) 1 puff IH DAILY [facility] Last Admin: 02/13/17 10:03 Dose: 1 puff Valsartan (Diovan -) 80 mg PO BID [facility] - Objective Vital Signs: Vital Signs Temperature 97.5 F L 02/13/17 05:42 Pulse Rate 65 02/13/17 05:42 Respiratory Rate 20 02/13/17 05:42 Blood Pressure 146/63 02/13/17 05:42 O2 Sat by Pulse Oximetry (%) 95 02/12/17 22:00 Constitutional: Yes: Well Nourished, Calm Eyes: Yes: WNL HENT: Yes: WNL Neck: Yes: WNL Cardiovascular: Yes: Regular Rate and Rhythm, S1, S2 Respiratory: Yes: Diminished Gastrointestinal: Yes: Normal Bowel Sounds, Soft Extremities: Yes: WNL Peripheral Pulses WNL: Yes Assessment/Plan Problem List - Problems (1) Acute exacerbation of CHF (congestive heart failure) Code(s): I50.9 - HEART FAILURE, UNSPECIFIED Qualifiers: Congestive heart failure type: unspecified congestive heart failure type Qualified Code(s): I50.9 - Heart failure, unspecified (2) SOB (shortness of breath) Code(s): R06.02 - SHORTNESS OF BREATH (3) COPD exacerbation Code(s): J44.1 - CHRONIC OBSTRUCTIVE PULMONARY DISEASE W (ACUTE) EXACERBATION (4) HLD (hyperlipidemia) Code(s): E78.5 - HYPERLIPIDEMIA, UNSPECIFIED (5) HTN (hypertension) Code(s): I10 - ESSENTIAL (PRIMARY) HYPERTENSION (6) Obesity Code(s): E66.9 - OBESITY, UNSPECIFIED Assessment/Plan ACUTE ON CHRONIC CHF CARDIOMYOPATHY HTN HLD COPD LIKELY OSAS OBESITY O2 TO MAINTAIN SAT>90% BRONCHODILATORS NEEDED DIURETICS NA RESTRICT DIET DAILY [facility] PFTS OUTPATIENT SLEEP SCREEN DR CAPELLAN
[2017-02-13] MEDS: ATORVASTATIN CA 80 MG TABLET (FP) PO SCH (21:13)
[2017-02-14] MEDS: ALBUTEROL SO4 0.083% IH SOL 2.5 MG/3 ML VIAL.NEB. NEB SCH ×5 (06:25→22:50)
[2017-02-14 08:09] LABS: ANION GAP 9 (8-16); BLOOD UREA NITROGEN 19 mg/dL (7-18); CALCIUM 9.3 mg/dL (8.5-10.1); CHLORIDE 104 mmol/L (98-107); CO2 30 mmol/L (21-32); GLUCOSE,RANDOM 96 mg/dL (74-106); MAGNESIUM 2.2 mg/dL (1.8-2.4); POTASSIUM 4.9 mmol/L (3.5-5.1); SODIUM 143 mmol/L (136-145)
[2017-02-14 08:12] LABS: CREATININE 0.8 mg/dL (0.55-1.02); PHOSPHOROUS 5.1 mg/dL (2.5-4.9)
[2017-02-14] MEDS: PARoxetine HCL 10 MG TABLET (FP) PO SCH (09:25)
[2017-02-14] MEDS: VALSARTAN 80 MG TABLET (UD) PO SCH ×2 (09:26→21:13)
[2017-02-14] MEDS: FUROSEMIDE 40 MG/4 ML INJECTABLE VIAL IVPUSH SCH (09:26)
[2017-02-14] MEDS: METOPROLOL TARTRATE 25 MG TABLET (FP) PO SCH (09:26)
[2017-02-14] MEDS: LORATADINE 10 MG TABLET PO SCH (09:26)
[2017-02-14] MEDS: ISOSORBIDE MONONITRATE 30 MG TAB.SR.24H (FP) PO SCH (09:26)
[2017-02-14] MEDS: TIOTROPIUM BROMIDE 18 MCG/INH (DEVICE W/ 5 CAPSULES) IH SCH (09:29)
[2017-02-14 11:17] LABS: BASO % 1.1 % (0-2.0); EOS % 6.3 % (0-4.5); HEMATOCRIT 37.5 % (32.4-45.2); HEMOGLOBIN 12.1 GM/dL (10.7-15.3); LYMPH % 25.8 % (8-40); MCH 30.4 pg (25.7-33.7); MCHC 32.3 g/dl (32.0-36.0); MEAN CELL VOLUME 94.2 fl (80-96); MEAN PLT VOLUME 7.3 fl (7.5-11.1); MONO % 10.9 % (3.8-10.2); NEUT % 55.9 % (42.8-82.8); PLATELET COUNT 277 K/MM3 (134-434); RBC 3.98 M/mm3 (3.60-5.2); RDW 13.1 % (11.6-15.6); WHITE BLOOD COUNT 7.1 K/mm3 (4.0-10.0)
--- NOTE | 2017-02-14 11:59 | PN ---
Progress Note, Physician Chief Complaint: Ms Rudd says she is doing well. No longer sob but still with significant leg swelling. No cp or n/v. - Current Medication List Current Medications: Active Medications Albuterol Sulfate (Ventolin 0.083% Nebulizer Soln -) 1 amp NEB Q4HWA [facility] Last Admin: 02/14/17 06:25 Dose: 1 amp Atorvastatin Calcium (Lipitor -) 80 mg PO HS [facility] Last Admin: 02/13/17 21:13 Dose: 80 mg Furosemide (Lasix Injection -) 40 mg IVPUSH DAILY [facility] Last Admin: 02/14/17 09:26 Dose: 40 mg Isosorbide Mononitrate (Imdur -) 30 mg PO DAILY [facility] Last Admin: 02/14/17 09:26 Dose: 30 mg Loratadine (Claritin -) 10 mg PO DAILY [facility] Last Admin: 02/14/17 09:26 Dose: 10 mg Lorazepam (Ativan -) 0.5 mg PO DAILY PRN PRN Reason: ANXIETY Last Admin: 02/12/17 21:02 Dose: 0.5 mg Metoprolol Tartrate (Lopressor -) 25 mg PO DAILY [facility] Last Admin: 02/14/17 09:26 Dose: 25 mg Paroxetine HCl (Paxil -) 10 mg PO DAILY [facility] Last Admin: 02/14/17 09:25 Dose: 10 mg Tiotropium [place] (Spiriva -) 1 puff IH DAILY [facility] Last Admin: 02/14/17 09:29 Dose: 1 puff Valsartan (Diovan -) 80 mg PO BID [facility] Last Admin: 02/14/17 09:26 Dose: 80 mg - Objective Vital Signs: Vital Signs Temperature 37.2 C 02/14/17 06:00 Pulse Rate 79 02/14/17 06:00 Respiratory Rate 20 02/14/17 06:00 Blood Pressure 161/70 02/14/17 06:00 O2 Sat by Pulse Oximetry (%) 95 02/13/17 21:00 Constitutional: Yes: No Distress, Calm, Obese Cardiovascular: Yes: Regular Rate and Rhythm. No: Gallop, Murmur, Rub Respiratory: Yes: Regular, CTA Bilaterally. No: Rales, Rhonchi, Wheezes Gastrointestinal: Yes: Normal Bowel Sounds, Soft. No: Distention, Tenderness Extremities: Yes: WNL Edema: Yes Edema: LLE: 2+, RLE: 2+ Labs: CBC, BMP 02/14/17 06:20 02/14/17 06:20 INR, PTT INR 1.08 (0.82-1.09) 02/11/17 21:00 Problem List - Problems (1) Acute exacerbation of CHF (congestive heart failure) Code(s): I50.9 - HEART FAILURE, UNSPECIFIED Qualifiers: Congestive heart failure type: diastolic Qualified Code(s): I50.33 - Acute on chronic diastolic (congestive) heart failure (2) COPD (chronic obstructive pulmonary disease) Code(s): J44.9 - CHRONIC OBSTRUCTIVE PULMONARY DISEASE, UNSPECIFIED Qualifiers: COPD type: unspecified COPD Qualified Code(s): J44.9 - Chronic obstructive pulmonary disease, unspecified (3) HLD (hyperlipidemia) Code(s): E78.5 - HYPERLIPIDEMIA, UNSPECIFIED (4) HTN (hypertension) Code(s): I10 - ESSENTIAL (PRIMARY) HYPERTENSION (5) Obesity Code(s): E66.9 - OBESITY, UNSPECIFIED Qualifiers: Obesity type: due to excess calories Obesity classification: adult class 2 (BMI 35 - 39.9) Serious obesity comorbidity presence: with serious comorbidity Body mass index: BMI 36.0-36.9 Qualified Code(s): E66.01 - Morbid (severe) obesity due to excess calories; Z68.36 - Body mass index (BMI) 36.0-36.9, adult; Z68.36 - Body mass index (BMI) 36.0-36.9, adult Assessment/Plan (1) Acute exacerbation of CHF (congestive heart failure) Assessment/Plan: -still with significant leg swelling -cardiology note reviewed -increased lasix to 40mg IV bid Code(s): I50.9 - HEART FAILURE, UNSPECIFIED Qualifiers: Congestive heart failure type: diastolic Qualified Code(s): I50.33 - Acute on chronic diastolic (congestive) heart failure (2) COPD (chronic obstructive pulmonary disease) Assessment/Plan: -stable -continue current management Code(s): J44.9 - CHRONIC OBSTRUCTIVE PULMONARY DISEASE, UNSPECIFIED Qualifiers: COPD type: unspecified COPD Qualified Code(s): J44.9 - Chronic obstructive pulmonary disease, unspecified (3) HLD (hyperlipidemia) Assessment/Plan: -continue lipitor Code(s): E78.5 - HYPERLIPIDEMIA, UNSPECIFIED (4) HTN (hypertension) Assessment/Plan: -diovan increased to bid dosing yesterday -monitor today -if remains elevated, can consider further increase of diovan or increase of metoprolol -will consider change to either toprol xl or coreg if choose to increase beta bret Code(s): I10 - ESSENTIAL (PRIMARY) HYPERTENSION (5) Obesity Assessment/Plan: -counselled on diet -outpatient weight loss program Code(s): E66.9 - OBESITY, UNSPECIFIED Qualifiers: Obesity type: due to excess calories Obesity classification: adult class 2 (BMI 35 - 39.9) Serious obesity comorbidity presence: with serious comorbidity Body mass index: BMI 36.0-36.9 Qualified Code(s): E66.01 - Morbid (severe) obesity due to excess calories; Z68.36 - Body mass index (BMI) 36.0-36.9, adult; Z68.36 - Body mass index (BMI) 36.0-36.9, adult
--- NOTE | 2017-02-14 12:21 | PN ---
Progress Note, Physician History of Present Illness: pulmonary alert,oob-chair,comfortable,less dyspneic. sleep screen AHI 19.1 c/w moderate kanu - Current Medication List Current Medications: Active Medications Albuterol Sulfate (Ventolin 0.083% Nebulizer Soln -) 1 amp NEB Q4HWA [facility] Last Admin: 02/14/17 09:45 Dose: 1 amp Atorvastatin [place] (Lipitor -) 80 mg PO HS [facility] Last Admin: 02/13/17 21:13 Dose: 80 mg Furosemide (Lasix Injection -) 40 mg IVPUSH DAILY [facility] Last Admin: 02/14/17 09:26 Dose: 40 mg Isosorbide Mononitrate (Imdur -) 30 mg PO DAILY [facility] Last Admin: 02/14/17 09:26 Dose: 30 mg Loratadine (Claritin -) 10 mg PO DAILY [facility] Last Admin: 02/14/17 09:26 Dose: 10 mg Lorazepam (Ativan -) 0.5 mg PO DAILY PRN PRN Reason: ANXIETY Last Admin: 02/12/17 21:02 Dose: 0.5 mg Metoprolol Tartrate (Lopressor -) 25 mg PO DAILY [facility] Last Admin: 02/14/17 09:26 Dose: 25 mg Paroxetine HCl (Paxil -) 10 mg PO DAILY [facility] Last Admin: 02/14/17 09:25 Dose: 10 mg Tiotropium [place] (Spiriva -) 1 puff IH DAILY [facility] Last Admin: 02/14/17 09:29 Dose: 1 puff Valsartan (Diovan -) 80 mg PO BID [facility] Last Admin: 02/14/17 09:26 Dose: 80 mg - Objective Vital Signs: Vital Signs Temperature 98.9 F 02/14/17 06:00 Pulse Rate 79 02/14/17 06:00 Respiratory Rate 20 02/14/17 06:00 Blood Pressure 161/70 02/14/17 06:00 O2 Sat by Pulse Oximetry (%) 95 02/13/17 21:00 Constitutional: Yes: Well Nourished, Calm Eyes: Yes: WNL HENT: Yes: WNL Neck: Yes: WNL Cardiovascular: Yes: Regular Rate and Rhythm, S1, S2 Respiratory: Yes: Rales (bibasilar rales) Gastrointestinal: Yes: Normal Bowel Sounds, Soft Extremities: Yes: WNL Edema: Yes Labs: CBC, BMP 02/14/17 06:20 02/14/17 06:20 INR, PTT INR 1.08 (0.82-1.09) 02/11/17 21:00 Assessment/Plan Problem List - Problems (1) Acute exacerbation of CHF (congestive heart failure) Code(s): I50.9 - HEART FAILURE, UNSPECIFIED Qualifiers: Congestive heart failure type: unspecified congestive heart failure type Qualified Code(s): I50.9 - Heart failure, unspecified (2) SOB (shortness of breath) Code(s): R06.02 - SHORTNESS OF BREATH (3) COPD exacerbation Code(s): J44.1 - CHRONIC OBSTRUCTIVE PULMONARY DISEASE W (ACUTE) EXACERBATION (4) HLD (hyperlipidemia) Code(s): E78.5 - HYPERLIPIDEMIA, UNSPECIFIED (5) HTN (hypertension) Code(s): I10 - ESSENTIAL (PRIMARY) HYPERTENSION (6) Obesity Code(s): E66.9 - OBESITY, UNSPECIFIED Assessment/Plan ACUTE ON CHRONIC CHF CARDIOMYOPATHY HTN HLD COPD OSAS AHI 19.1 OBESITY O2 TO MAINTAIN SAT>90% BRONCHODILATORS NEEDED DIURETICS NA RESTRICT DIET DAILY [facility]IGHT[facility] PFTS OUTPATIENT FULL SLEEP STUDIES OUTPATIENT DR CAPELLAN
--- NOTE | 2017-02-14 12:42 | PN ---
Progress Note (short form) - Note Progress Note: s: no cp sob palps dizzy, le edema better but still present o: Vital Signs Period Temp Pulse Resp BP Sys/Ambrose Pulse Ox Last 24 Hr 68 F-98.9 F 68-81 18-20 113-161/47-77 95 nad, calm jvd elevated, neck supple rrr nl s1, s2 2/6 sys murmur at lsb and apex cta bl nl effort + bs soft nt nd ext with trace -1 + edema. chronic venous stasis changes aaox3 no jaundice, diaphoresis Current Medications Generic Name Dose Route Start Last Admin Trade Name Freq PRN Reason Stop Dose Admin Albuterol Sulfate 1 amp 02/12/17 14:00 02/14/17 09:45 Ventolin 0.083% Nebulizer Soln - NEB 1 amp Q4HWA RAGHU Administration Atorvastatin Calcium 80 mg 02/12/17 22:00 02/13/17 21:13 Lipitor - PO 80 mg HS RAGHU Administration Furosemide 40 mg 02/14/17 16:00 Lasix Injection - IVPUSH 02/14/17 16:01 ONCE ONE Furosemide 40 mg 02/15/17 06:00 Lasix Injection - IVPUSH BID@0600,1400 RAGHU Isosorbide Mononitrate 30 mg 02/12/17 10:30 02/14/17 09:26 Imdur - PO 30 mg DAILY RAGHU Administration Loratadine 10 mg 02/13/17 12:15 02/14/17 09:26 Claritin - PO 10 mg DAILY RAGHU Administration Lorazepam 0.5 mg 02/12/17 10:16 02/12/17 21:02 Ativan - PO 0.5 mg DAILY PRN Administration ANXIETY Metoprolol Tartrate 25 mg 02/12/17 10:30 02/14/17 09:26 Lopressor - PO 25 mg DAILY RAGHU Administration Paroxetine HCl 10 mg 02/12/17 10:30 02/14/17 09:25 Paxil - PO 10 mg DAILY RAGHU Administration Tiotropium [place] 1 puff 02/12/17 10:30 02/14/17 09:29 Spiriva - IH 1 puff DAILY RAGHU Administration Valsartan 80 mg 02/13/17 22:00 02/14/17 09:26 Diovan - PO 80 mg BID RAGHU Administration CBC, BMP 02/14/17 06:20 02/14/17 06:20 ekg: Lbbb tele: sr pvc's. echo 01/2017: nl lv size/fn. tds for rwma. rv not well seen. mod unruly. 1+ mr/ tr. rvsp 40-50. chest cta 01/2017: no PE. small bilateral pleural effusions. Of note also with calcified cors by my review Mayra stress MPI 06/2012: small, mild reversible anterior wall defect c/w anterior ischemia vs variable breast attenuation artifact. a/p: 76 with h/o HTN, hl, pulm htn, known lbbb, diastolic hf on po lasix, copd/ chronic bronchitis (previously prescribed home O2 but doesn't use regularly), anxiety who p/w progressive carbajal. carbajal/acute diastolic hf exacerbation - sx's improving with IV lasix. cr stable, will increase to lasix 40 iv bid from qd. daily weights, bmp - echo without new structural abnormalities. htn - controlled on home regimen hld - con't statin
[2017-02-14] MEDS ORDERED: FUROSEMIDE 40 MG/4 ML INJECTABLE VIAL IVPUSH ONE (16:00)
[2017-02-14] MEDS: ATORVASTATIN CA 80 MG TABLET (FP) PO SCH (21:13)
[2017-02-15] MEDS: FUROSEMIDE 40 MG/4 ML INJECTABLE VIAL IVPUSH SCH ×2 (05:47→14:54)
[2017-02-15] MEDS: ALBUTEROL SO4 0.083% IH SOL 2.5 MG/3 ML VIAL.NEB. NEB SCH ×5 (06:55→21:26)
[2017-02-15 07:35] LABS: BASO % 0.7 % (0-2.0); HEMATOCRIT 40.4 % (32.4-45.2); HEMOGLOBIN 13.2 GM/dL (10.7-15.3); LYMPH % 23.4 % (8-40); MCH 30.7 pg (25.7-33.7); MCHC 32.7 g/dl (32.0-36.0); MEAN CELL VOLUME 93.9 fl (80-96); MEAN PLT VOLUME 7.2 fl (7.5-11.1); MONO % 9.6 % (3.8-10.2); NEUT % 61.3 % (42.8-82.8); PLATELET COUNT 292 K/MM3 (134-434); RDW 13.2 % (11.6-15.6); WHITE BLOOD COUNT 7.4 K/mm3 (4.0-10.0)
[2017-02-15 07:41] LABS: ANION GAP 6 (8-16); BLOOD UREA NITROGEN 26 mg/dL (7-18); CHLORIDE 101 mmol/L (98-107); CO2 34 mmol/L (21-32); GLUCOSE,RANDOM 95 mg/dL (74-106); MAGNESIUM 2.5 mg/dL (1.8-2.4); POTASSIUM 4.4 mmol/L (3.5-5.1); SODIUM 141 mmol/L (136-145)
[2017-02-15 07:42] LABS: CREATININE 0.9 mg/dL (0.55-1.02); PHOSPHOROUS 5.8 mg/dL (2.5-4.9)
[2017-02-15] MEDS: ISOSORBIDE MONONITRATE 30 MG TAB.SR.24H (FP) PO SCH (10:36)
[2017-02-15] MEDS: LORATADINE 10 MG TABLET PO SCH (10:36)
[2017-02-15] MEDS: VALSARTAN 80 MG TABLET (UD) PO SCH ×2 (10:36→22:02)
[2017-02-15] MEDS: METOPROLOL TARTRATE 25 MG TABLET (FP) PO SCH (10:36)
[2017-02-15] MEDS: PARoxetine HCL 10 MG TABLET (FP) PO SCH (10:36)
[2017-02-15] MEDS: TIOTROPIUM BROMIDE 18 MCG/INH (DEVICE W/ 5 CAPSULES) IH SCH (10:37)
--- NOTE | 2017-02-15 12:53 | PN ---
Progress Note (short form) - Note Progress Note: PULMONARY COMPLAINING OF LOWER EXT EDEMA VSS/AFEB ANICTERIC SCATTERED CRACKLES/DIMINISHED BREATH SOUNDS S1S2 BS+ OBESE 2+ EDEMA B/L LOWER EXT LABS/MEDS/NOTES/IMAGING/ECHO REVIEWED PROGRESSIVE ORTHOPNEA/[place] LIKELY ON BASIS OF WORSENING HF ECHO(2015) LVH/LVD/LVDD ECHO (2017) RVSP 47 NO CLINICAL/RADIOGRAPHICAL EVIDENCE TO SUPPORT PNEUMONIA/PE (CTA NEGATIVE) NONCOMPLIANT WITH HOME O2 COPD O2 TO MAINTAIN SAT>90% BRONCHODILATORS NEEDED ARB/DIURETIC/BETA-SRAVANI ORDERED NA/FLUID RESTRICT DIET DAILY WEIGHTS Gato GONZALEZ MD Problem List - Problems (1) Acute exacerbation of CHF (congestive heart failure) Code(s): I50.9 - HEART FAILURE, UNSPECIFIED Qualifiers: Congestive heart failure type: diastolic Qualified Code(s): I50.33 - Acute on chronic diastolic (congestive) heart failure (2) SOB (shortness of breath) Code(s): R06.02 - SHORTNESS OF BREATH (3) COPD exacerbation Code(s): J44.1 - CHRONIC OBSTRUCTIVE PULMONARY DISEASE W (ACUTE) EXACERBATION (4) HLD (hyperlipidemia) Code(s): E78.5 - HYPERLIPIDEMIA, UNSPECIFIED (5) HTN (hypertension) Code(s): I10 - ESSENTIAL (PRIMARY) HYPERTENSION (6) Obesity Code(s): E66.9 - OBESITY, UNSPECIFIED Qualifiers: Obesity type: due to excess calories Obesity classification: adult class 2 (BMI 35 - 39.9) Serious obesity comorbidity presence: with serious comorbidity Body mass index: BMI 36.0-36.9 Qualified Code(s): E66.01 - Morbid (severe) obesity due to excess calories; Z68.36 - Body mass index (BMI) 36.0-36.9, adult; Z68.36 - Body mass index (BMI) 36.0-36.9, adult
--- NOTE | 2017-02-15 15:30 | PN ---
Progress Note, Physician History of Present Illness: Feeling a little better, on lasix twice a day now, breathing not as bad when walking to bathroom. Feet still swollen. - Current Medication List Current Medications: Active Medications Albuterol Sulfate (Ventolin 0.083% Nebulizer Soln -) 1 amp NEB Q4HWA [facility] Last Admin: 02/15/17 09:56 Dose: 1 amp Atorvastatin Calcium (Lipitor -) 80 mg PO HS [facility] Last Admin: 02/14/17 21:13 Dose: 80 mg Furosemide (Lasix Injection -) 40 mg IVPUSH BID@0600,1400 [facility] Last Admin: 02/15/17 14:54 Dose: 40 mg Isosorbide Mononitrate (Imdur -) 30 mg PO DAILY [facility] Last Admin: 02/15/17 10:36 Dose: 30 mg Loratadine (Claritin -) 10 mg PO DAILY [facility] Last Admin: 02/15/17 10:36 Dose: 10 mg Lorazepam (Ativan -) 0.5 mg PO DAILY PRN PRN Reason: ANXIETY Last Admin: 02/12/17 21:02 Dose: 0.5 mg Metoprolol Tartrate (Lopressor -) 25 mg PO DAILY [facility] Last Admin: 02/15/17 10:36 Dose: 25 mg Paroxetine HCl (Paxil -) 10 mg PO DAILY [facility] Last Admin: 02/15/17 10:36 Dose: 10 mg Tiotropium [place] (Spiriva -) 1 puff IH DAILY [facility] Last Admin: 02/15/17 10:37 Dose: 1 puff Valsartan (Diovan -) 80 mg PO BID [facility] Last Admin: 02/15/17 10:36 Dose: 80 mg - Objective Vital Signs: Vital Signs Temperature 98.5 F 02/15/17 14:00 Pulse Rate 72 02/15/17 14:00 Respiratory Rate 20 02/15/17 14:00 Blood Pressure 110/47 02/15/17 14:00 O2 Sat by Pulse Oximetry (%) 98 02/15/17 08:48 Constitutional: Yes: No Distress, Calm Eyes: Yes: Conjunctiva Clear, EOM Intact HENT: Yes: Atraumatic, Normocephalic Neck: Yes: Supple, Trachea Midline Cardiovascular: Yes: Regular Rate and Rhythm, S1, S2. No: Murmur Respiratory: Yes: Regular, Rales (at bases). No: Wheezes Gastrointestinal: Yes: Normal Bowel Sounds, Soft. No: Distention, Tenderness Edema: Yes Edema: LLE: 2+, RLE: 2+ Neurological: Yes: Alert, Oriented Labs: CBC, BMP 02/15/17 05:05 02/15/17 05:05 INR, PTT INR 1.08 (0.82-1.09) 02/11/17 21:00 Assessment/Plan Current Active Problems Acute exacerbation of CHF (congestive heart failure) (Acute) COPD (chronic obstructive pulmonary disease) (Acute) Pleural effusion (Acute) SOB (shortness of breath) (Acute) -cont ivf per cardio -d/c planning when able to be switched to PO lasix
--- NOTE | 2017-02-15 21:55 | PN ---
Progress Note (short form) - Note Progress Note: CC: sob s: no cp sob palps dizzy, le edema better but still present o: Current Medications Albuterol Sulfate (Ventolin 0.083% Nebulizer Soln -) 1 amp NEB Q4HWA [facility] Last Admin: 02/15/17 21:26 Dose: 1 amp Atorvastatin Calcium (Lipitor -) 80 mg PO HS [facility] Last Admin: 02/14/17 21:13 Dose: 80 mg Furosemide (Lasix Injection -) 40 mg IVPUSH BID@0600,1400 [facility] Last Admin: 02/15/17 14:54 Dose: 40 mg Isosorbide Mononitrate (Imdur -) 30 mg PO DAILY [facility] Last Admin: 02/15/17 10:36 Dose: 30 mg Loratadine (Claritin -) 10 mg PO DAILY [facility] Last Admin: 02/15/17 10:36 Dose: 10 mg Lorazepam (Ativan -) 0.5 mg PO DAILY PRN PRN Reason: ANXIETY Last Admin: 02/12/17 21:02 Dose: 0.5 mg Metoprolol Tartrate (Lopressor -) 25 mg PO DAILY [facility] Last Admin: 02/15/17 10:36 Dose: 25 mg Paroxetine HCl (Paxil -) 10 mg PO DAILY [facility] Last Admin: 02/15/17 10:36 Dose: 10 mg Tiotropium [place] (Spiriva -) 1 puff IH DAILY [facility] Last Admin: 02/15/17 10:37 Dose: 1 puff Valsartan (Diovan -) 80 mg PO BID [facility] Last Admin: 02/15/17 10:36 Dose: 80 mg Vital Signs - 24 hr 02/14/17 02/15/17 02/15/17 22:00 02:00 06:00 Temperature 97.8 F 98.3 F 98.3 F Pulse Rate 70 82 80 Respiratory 20 20 20 Rate Blood Pressure 140/77 147/63 140/88 O2 Sat by Pulse Oximetry (%) 02/15/17 02/15/17 02/15/17 08:48 14:00 18:00 Temperature 98.5 F 98.1 F Pulse Rate 72 63 Respiratory 20 20 Rate Blood Pressure 110/47 120/54 O2 Sat by Pulse 98 Oximetry (%) 02/15/17 20:30 Temperature 97.6 F Pulse Rate 65 Respiratory 20 Rate Blood Pressure 139/95 O2 Sat by Pulse Oximetry (%) Intake & Output 02/13/17 02/14/17 02/15/17 02/16/17 07:59 07:59 07:59 07:59 Intake Total 1220 1030 1100 Output Total 1 Balance 1219 1030 1100 Weight 200 lb 200 lb 196 lb 12.8 oz nad, calm jvd elevated, neck supple rrr nl s1, s2 2/6 sys murmur at lsb and apex trace rales, nl effort + bs soft nt nd ext with trace -1 + edema. chronic venous stasis changes aaox3 no jaundice, diaphoresis CBC, BMP 02/15/17 05:05 02/15/17 05:05 ekg: Lbbb tele: sr pvc's. echo 01/2017: nl lv size/fn. tds for rwma. rv not well seen. mod unruly. 1+ mr/ tr. rvsp 40-50. chest cta 01/2017: no PE. small bilateral pleural effusions. Of note also with calcified cors by my review Mayra stress MPI 06/2012: small, mild reversible anterior wall defect c/w anterior ischemia vs variable breast attenuation artifact. a/p: 76 with h/o HTN, hl, pulm htn, known lbbb, diastolic hf on po lasix, copd/ chronic bronchitis (previously prescribed home O2 but doesn't use regularly), anxiety who p/w progressive carbajal. carbajal/acute diastolic hf exacerbation - sx's improving with IV lasix. cr stable, on lasix 40 iv bid con't. daily weights, bmp - echo without new structural abnormalities. - pulm following. htn - controlled on home regimen hld - con't statin kanu, per pulm
[2017-02-15] MEDS: ATORVASTATIN CA 80 MG TABLET (FP) PO SCH (22:02)
[2017-02-16] MEDS: ALBUTEROL SO4 0.083% IH SOL 2.5 MG/3 ML VIAL.NEB. NEB SCH ×5 (05:20→22:15)
[2017-02-16] MEDS: FUROSEMIDE 40 MG/4 ML INJECTABLE VIAL IVPUSH SCH ×2 (06:09→15:22)
[2017-02-16 07:01] LABS: ANION GAP 8 (8-16); BLOOD UREA NITROGEN 30 mg/dL (7-18); CHLORIDE 100 mmol/L (98-107); CO2 33 mmol/L (21-32); CREATININE 0.9 mg/dL (0.55-1.02); GLUCOSE,RANDOM 94 mg/dL (74-106); POTASSIUM 4.3 mmol/L (3.5-5.1); SODIUM 141 mmol/L (136-145)
[2017-02-16] MEDS ORDERED: PT OWN MED DRAWER 7, Y5N ONE (09:04)
[2017-02-16] MEDS: LORATADINE 10 MG TABLET PO SCH (09:19)
[2017-02-16] MEDS: TIOTROPIUM BROMIDE 18 MCG/INH (DEVICE W/ 5 CAPSULES) IH SCH (09:19)
[2017-02-16] MEDS: METOPROLOL TARTRATE 25 MG TABLET (FP) PO SCH (09:19)
[2017-02-16] MEDS: ISOSORBIDE MONONITRATE 30 MG TAB.SR.24H (FP) PO SCH (09:19)
[2017-02-16] MEDS: VALSARTAN 80 MG TABLET (UD) PO SCH ×2 (09:19→21:38)
[2017-02-16] MEDS: PARoxetine HCL 10 MG TABLET (FP) PO SCH (09:19)
--- NOTE | 2017-02-16 12:23 | PN ---
Progress Note, Physician History of Present Illness: Breathing feelign OK, does note a little more phlegm over night than she had been having. Leg swelling improved this morning. - Current Medication List Current Medications: Active Medications Albuterol Sulfate (Ventolin 0.083% Nebulizer Soln -) 1 amp NEB Q4HWA [facility] Last Admin: 02/16/17 05:59 Dose: 1 amp Atorvastatin Calcium (Lipitor -) 80 mg PO HS [facility] Last Admin: 02/15/17 22:02 Dose: 80 mg Furosemide (Lasix Injection -) 40 mg IVPUSH BID@0600,1400 [facility] Last Admin: 02/16/17 06:09 Dose: 40 mg Isosorbide Mononitrate (Imdur -) 30 mg PO DAILY [facility] Last Admin: 02/16/17 09:19 Dose: 30 mg Loratadine (Claritin -) 10 mg PO DAILY [facility] Last Admin: 02/16/17 09:19 Dose: 10 mg Lorazepam (Ativan -) 0.5 mg PO DAILY PRN PRN Reason: ANXIETY Last Admin: 02/12/17 21:02 Dose: 0.5 mg Metoprolol Tartrate (Lopressor -) 25 mg PO DAILY [facility] Last Admin: 02/16/17 09:19 Dose: 25 mg Paroxetine HCl (Paxil -) 10 mg PO DAILY [facility] Last Admin: 02/16/17 09:19 Dose: 10 mg Tiotropium [place] (Spiriva -) 1 puff IH DAILY [facility] Last Admin: 02/16/17 09:19 Dose: 1 puff Valsartan (Diovan -) 80 mg PO BID [facility] Last Admin: 02/16/17 09:19 Dose: 80 mg - Objective Vital Signs: Vital Signs Temperature 97.3 F L 02/16/17 06:25 Pulse Rate 71 02/16/17 06:25 Respiratory Rate 20 02/16/17 06:25 Blood Pressure 134/56 02/16/17 06:25 O2 Sat by Pulse Oximetry (%) 96 02/15/17 21:00 Constitutional: Yes: No Distress, Calm Eyes: Yes: Conjunctiva Clear, EOM Intact Cardiovascular: Yes: Regular Rate and Rhythm, S1, S2. No: Murmur Respiratory: Yes: Regular, Rales (at bases) Gastrointestinal: Yes: Normal Bowel Sounds, Soft. No: Distention, Tenderness Edema: Yes Edema: LLE: 1+, RLE: 1+ Labs: CBC, BMP 02/15/17 05:05 02/16/17 05:05 INR, PTT INR 1.08 (0.82-1.09) 02/11/17 21:00 Assessment/Plan Current Active Problems Acute exacerbation of CHF (congestive heart failure) (Acute) COPD (chronic obstructive pulmonary disease) (Acute) Pleural effusion (Acute) SOB (shortness of breath) (Acute) -continuing iv lasix -to switch to PO when felt appropriate by cardio
--- NOTE | 2017-02-16 12:25 | PN ---
Progress Note (short form) - Note Progress Note: PULMONARY COMPLAINING OF LOWER EXT EDEMA WGT 196 NOW 194LBS VSS/AFEB ANICTERIC SCATTERED CRACKLES/DIMINISHED BREATH SOUNDS S1S2 BS+ OBESE 2+ EDEMA B/L LOWER EXT LABS/MEDS/NOTES/IMAGING/ECHO REVIEWED PROGRESSIVE ORTHOPNEA/[place] LIKELY ON BASIS OF WORSENING HF ECHO(2015) LVH/LVD/LVDD ECHO (2017) RVSP 47 NO CLINICAL/RADIOGRAPHICAL EVIDENCE TO SUPPORT PNEUMONIA/PE (CTA NEGATIVE) NONCOMPLIANT WITH HOME O2 COPD O2 TO MAINTAIN SAT>90% BRONCHODILATORS NEEDED ARB/DIURETIC/BETA-SRAVANI ORDERED NA/FLUID RESTRICT DIET DAILY WEIGHTS DISCHARGE PLANNING Gato GONZALEZ MD Problem List - Problems (1) Acute exacerbation of CHF (congestive heart failure) Code(s): I50.9 - HEART FAILURE, UNSPECIFIED Qualifiers: Congestive heart failure type: diastolic Qualified Code(s): I50.33 - Acute on chronic diastolic (congestive) heart failure (2) SOB (shortness of breath) Code(s): R06.02 - SHORTNESS OF BREATH (3) COPD exacerbation Code(s): J44.1 - CHRONIC OBSTRUCTIVE PULMONARY DISEASE W (ACUTE) EXACERBATION (4) HLD (hyperlipidemia) Code(s): E78.5 - HYPERLIPIDEMIA, UNSPECIFIED (5) HTN (hypertension) Code(s): I10 - ESSENTIAL (PRIMARY) HYPERTENSION (6) Obesity Code(s): E66.9 - OBESITY, UNSPECIFIED Qualifiers: Obesity type: due to excess calories Obesity classification: adult class 2 (BMI 35 - 39.9) Serious obesity comorbidity presence: with serious comorbidity Body mass index: BMI 36.0-36.9 Qualified Code(s): E66.01 - Morbid (severe) obesity due to excess calories; Z68.36 - Body mass index (BMI) 36.0-36.9, adult; Z68.36 - Body mass index (BMI) 36.0-36.9, adult
--- NOTE | 2017-02-16 17:17 | PN ---
Progress Note (short form) - Note Progress Note: CC: sob s: no cp sob palps dizzy, le edema continues to improve, closer to baseline. o: Current Medications Albuterol Sulfate (Ventolin 0.083% Nebulizer Soln -) 1 amp NEB Q4HWA [facility] Last Admin: 02/16/17 10:28 Dose: 1 amp Atorvastatin Calcium (Lipitor -) 80 mg PO HS [facility] Last Admin: 02/15/17 22:02 Dose: 80 mg Furosemide (Lasix Injection -) 40 mg IVPUSH BID@0600,1400 [facility] Last Admin: 02/16/17 15:22 Dose: 40 mg Isosorbide Mononitrate (Imdur -) 30 mg PO DAILY [facility] Last Admin: 02/16/17 09:19 Dose: 30 mg Loratadine (Claritin -) 10 mg PO DAILY [facility] Last Admin: 02/16/17 09:19 Dose: 10 mg Lorazepam (Ativan -) 0.5 mg PO DAILY PRN PRN Reason: ANXIETY Last Admin: 02/12/17 21:02 Dose: 0.5 mg Metoprolol Tartrate (Lopressor -) 25 mg PO DAILY [facility] Last Admin: 02/16/17 09:19 Dose: 25 mg Paroxetine HCl (Paxil -) 10 mg PO DAILY [facility] Last Admin: 02/16/17 09:19 Dose: 10 mg Tiotropium [place] (Spiriva -) 1 puff IH DAILY [facility] Last Admin: 02/16/17 09:19 Dose: 1 puff Valsartan (Diovan -) 80 mg PO BID [facility] Last Admin: 02/16/17 09:19 Dose: 80 mg Vital Signs - 24 hr 02/15/17 02/15/17 02/15/17 18:00 20:30 21:00 Temperature 98.1 F 97.6 F Pulse Rate 63 65 Respiratory 20 20 Rate Blood Pressure 120/54 139/95 O2 Sat by Pulse 96 Oximetry (%) 02/16/17 02/16/17 02/16/17 06:25 09:00 10:00 Temperature 97.3 F L 98.7 F Pulse Rate 71 89 Respiratory 20 20 Rate Blood Pressure 134/56 147/58 O2 Sat by Pulse 91 L Oximetry (%) 02/16/17 14:00 Temperature 98.6 F Pulse Rate 71 Respiratory 20 Rate Blood Pressure 116/47 O2 Sat by Pulse Oximetry (%) Intake & Output 02/14/17 02/15/17 02/16/17 02/17/17 07:59 07:59 07:59 07:59 Intake Total 1030 1100 500 Balance 1030 1100 500 Weight 200 lb 196 lb 12.8 oz 194 lb 6.4 oz nad, calm jvd elevated, neck supple rrr nl s1, s2 2/6 sys murmur at lsb and apex trace rales, nl effort + bs soft nt nd ext with trace -1 + edema. chronic venous stasis changes aaox3 no jaundice, diaphoresis CBC, BMP 02/15/17 05:05 02/16/17 05:05 ekg: Lbbb tele: sr pvc's. echo 01/2017: nl lv size/fn. tds for rwma. rv not well seen. mod unurly. 1+ mr/ tr. rvsp 40-50. chest cta 01/2017: no PE. small bilateral pleural effusions. Of note also with calcified cors by my review Mayra stress MPI 06/2012: small, mild reversible anterior wall defect c/w anterior ischemia vs variable breast attenuation artifact. a/p: 76 with h/o HTN, hl, pulm htn, known lbbb, diastolic hf on po lasix, copd/ chronic bronchitis (previously prescribed home O2 but doesn't use regularly), anxiety who p/w progressive carbajal. carbajal/acute diastolic hf exacerbation - sx's improving with IV lasix. cr stable, on lasix 40 iv bid con't. daily weights, bmp - echo without new structural abnormalities. - pulm following. htn - controlled on home regimen hld - con't statin kanu, per pulm
[2017-02-16] MEDS: ATORVASTATIN CA 80 MG TABLET (FP) PO SCH (21:38)
[2017-02-17] MEDS: FUROSEMIDE 40 MG/4 ML INJECTABLE VIAL IVPUSH SCH ×2 (05:46→15:19)
[2017-02-17] MEDS: ALBUTEROL SO4 0.083% IH SOL 2.5 MG/3 ML VIAL.NEB. NEB SCH ×5 (06:45→22:18)
[2017-02-17 08:12] LABS: CHLORIDE 100 mmol/L (98-107); POTASSIUM 4.1 mmol/L (3.5-5.1); SODIUM 142 mmol/L (136-145)
[2017-02-17 08:17] LABS: ANION GAP 9 (8-16); BLOOD UREA NITROGEN 30 mg/dL (7-18); CALCIUM 9.1 mg/dL (8.5-10.1); CO2 33 mmol/L (21-32); CREATININE 0.8 mg/dL (0.55-1.02); GLUCOSE,RANDOM 94 mg/dL (74-106)
[2017-02-17] MEDS ORDERED: PT OWN MED DRAWER 7, Y5N ONE (09:27)
[2017-02-17] MEDS ORDERED: guaiFENesin/D-METHORPHAN HB 10 ML UNIT-DOSE CUPS PO PRN (09:28)
[2017-02-17] MEDS: LORATADINE 10 MG TABLET PO SCH (09:35)
[2017-02-17] MEDS: VALSARTAN 80 MG TABLET (UD) PO SCH ×2 (09:35→21:14)
[2017-02-17] MEDS: METOPROLOL TARTRATE 25 MG TABLET (FP) PO SCH (09:35)
[2017-02-17] MEDS: PARoxetine HCL 10 MG TABLET (FP) PO SCH (09:35)
[2017-02-17] MEDS: ISOSORBIDE MONONITRATE 30 MG TAB.SR.24H (FP) PO SCH (09:35)
[2017-02-17] MEDS: TIOTROPIUM BROMIDE 18 MCG/INH (DEVICE W/ 5 CAPSULES) IH SCH (09:35)
--- NOTE | 2017-02-17 11:08 | PN ---
Progress Note, Physician History of Present Illness: Feeling a little more congested with phlegm. Leg swelling seems little better today. Breathing feeling about the same (less SOB now with exertion). - Current Medication List Current Medications: Active Medications Albuterol Sulfate (Ventolin 0.083% Nebulizer Soln -) 1 amp NEB Q4HWA [facility] Last Admin: 02/17/17 06:45 Dose: 1 amp Atorvastatin Calcium (Lipitor -) 80 mg PO HS [facility] Last Admin: 02/16/17 21:38 Dose: 80 mg Furosemide (Lasix Injection -) 40 mg IVPUSH BID@0600,1400 [facility] Last Admin: 02/17/17 05:46 Dose: 40 mg Guaifenesin (Robitussin Dm -) 10 ml PO Q6H PRN PRN Reason: COUGH Isosorbide Mononitrate (Imdur -) 30 mg PO DAILY [facility] Last Admin: 02/17/17 09:35 Dose: 30 mg Loratadine (Claritin -) 10 mg PO DAILY [facility] Last Admin: 02/17/17 09:35 Dose: 10 mg Lorazepam (Ativan -) 0.5 mg PO DAILY PRN PRN Reason: ANXIETY Last Admin: 02/12/17 21:02 Dose: 0.5 mg Metoprolol Tartrate (Lopressor -) 25 mg PO DAILY [facility] Last Admin: 02/17/17 09:35 Dose: 25 mg Paroxetine HCl (Paxil -) 10 mg PO DAILY [facility] Last Admin: 02/17/17 09:35 Dose: 10 mg Tiotropium [place] (Spiriva -) 1 puff IH DAILY [facility] Last Admin: 02/17/17 09:35 Dose: 1 puff Valsartan (Diovan -) 80 mg PO BID [facility] Last Admin: 02/17/17 09:35 Dose: 80 mg - Objective Vital Signs: Vital Signs Temperature 98.1 F 02/17/17 09:33 Pulse Rate 81 02/17/17 09:33 Respiratory Rate 22 02/17/17 09:33 Blood Pressure 109/54 02/17/17 09:33 O2 Sat by Pulse Oximetry (%) 94 L 02/16/17 21:00 Constitutional: Yes: No Distress, Calm Neck: Yes: Supple, Trachea Midline Cardiovascular: Yes: Regular Rate and Rhythm, S1, S2. No: Murmur Respiratory: Yes: Regular, CTA Bilaterally. No: Rales, Rhonchi, Wheezes Gastrointestinal: Yes: Normal Bowel Sounds, Soft. No: Distention, Tenderness Edema: Yes Edema: LLE: Trace, RLE: Trace Labs: CBC, BMP 02/15/17 05:05 02/17/17 06:25 INR, PTT INR 1.08 (0.82-1.09) 02/11/17 21:00 Assessment/Plan Current Active Problems Acute exacerbation of CHF (congestive heart failure) (Acute) COPD (chronic obstructive pulmonary disease) (Acute) Pleural effusion (Acute) SOB (shortness of breath) (Acute) -continue diuresis -robitussin for congestion
--- NOTE | 2017-02-17 12:14 | PN ---
Progress Note (short form) - Note Progress Note: s: no cp sob palps dizzy, le edema better but still present o: Vital Signs Period Temp Pulse Resp BP Sys/Ambrose Pulse Ox Last 24 Hr 97.6 F-98.8 F 69-81 20-22 109-149/41-78 94 nad, calm jvd elevated, neck supple rrr nl s1, s2 2/6 sys murmur at lsb and apex cta bl nl effort + bs soft nt nd ext with trace edema. chronic venous stasis changes aaox3 no jaundice, diaphoresis Current Medications Generic Name Dose Route Start Last Admin Trade Name Freq PRN Reason Stop Dose Admin Albuterol Sulfate 1 amp 02/12/17 14:00 02/17/17 10:13 Ventolin 0.083% Nebulizer Soln - NEB 1 amp Q4HWA RAGHU Administration Atorvastatin Calcium 80 mg 02/12/17 22:00 02/16/17 21:38 Lipitor - PO 80 mg HS RAGHU Administration Furosemide 40 mg 02/15/17 06:00 02/17/17 05:46 Lasix Injection - IVPUSH 40 mg BID@0600,1400 RAGHU Administration Guaifenesin 10 ml 02/17/17 09:28 Robitussin Dm - PO Q6H PRN COUGH Isosorbide Mononitrate 30 mg 02/12/17 10:30 02/17/17 09:35 Imdur - PO 30 mg DAILY RAGHU Administration Loratadine 10 mg 02/13/17 12:15 02/17/17 09:35 Claritin - PO 10 mg DAILY RAGHU Administration Lorazepam 0.5 mg 02/12/17 10:16 02/12/17 21:02 Ativan - PO 0.5 mg DAILY PRN Administration ANXIETY Metoprolol Tartrate 25 mg 02/12/17 10:30 02/17/17 09:35 Lopressor - PO 25 mg DAILY RAGHU Administration Paroxetine HCl 10 mg 02/12/17 10:30 02/17/17 09:35 Paxil - PO 10 mg DAILY RAGHU Administration Tiotropium [place] 1 puff 02/12/17 10:30 02/17/17 09:35 Spiriva - IH 1 puff DAILY RAGHU Administration Valsartan 80 mg 02/13/17 22:00 02/17/17 09:35 Diovan - PO 80 mg BID RAGHU Administration CBC, BMP 02/15/17 05:05 02/17/17 06:25 ekg: Lbbb tele: sr echo 01/2017: nl lv size/fn. tds for rwma. rv not well seen. mod unruly. 1+ mr/ tr. rvsp 40-50. chest cta 01/2017: no PE. small bilateral pleural effusions. Of note also with calcified cors by my review Mayra stress MPI 06/2012: small, mild reversible anterior wall defect c/w anterior ischemia vs variable breast attenuation artifact. a/p: 76 with h/o HTN, hl, pulm htn, known lbbb, diastolic hf on po lasix, copd/ chronic bronchitis (previously prescribed home O2 but doesn't use regularly), anxiety who p/w progressive carbajal. carbajal/acute diastolic hf exacerbation - sx's improving with IV lasix. cr stable, on lasix 40 iv bid con't. daily weights, bmp - echo without new structural abnormalities. - pulm following. htn - controlled on home regimen hld - con't statin kanu, per pulm dc tele
--- NOTE | 2017-02-17 12:35 | PN ---
Progress Note (short form) - Note Progress Note: PULMONARY LESS LOWER EXT EDEMA WGT 193 LBS. VSS/AFEB ANICTERIC SCATTERED CRACKLES/DIMINISHED BREATH SOUNDS S1S2 BS+ OBESE 1+ EDEMA B/L LOWER EXT LABS/MEDS/NOTES/IMAGING/ECHO REVIEWED RESOLVING HF ECHO(2015) LVH/LVD/LVDD ECHO (2017) RVSP 47 NO CLINICAL/RADIOGRAPHICAL EVIDENCE TO SUPPORT PNEUMONIA/PE (CTA NEGATIVE) NONCOMPLIANT WITH HOME O2 COPD O2 TO MAINTAIN SAT>90% BRONCHODILATORS NEEDED ARB/DIURETIC/BETA-SRAVANI ORDERED NA/FLUID RESTRICT DIET DAILY WEIGHTS DISCHARGE PLANNING R LISA OTERO Problem List - Problems (1) Acute exacerbation of CHF (congestive heart failure) Code(s): I50.9 - HEART FAILURE, UNSPECIFIED Qualifiers: Congestive heart failure type: diastolic Qualified Code(s): I50.33 - Acute on chronic diastolic (congestive) heart failure (2) SOB (shortness of breath) Code(s): R06.02 - SHORTNESS OF BREATH (3) COPD exacerbation Code(s): J44.1 - CHRONIC OBSTRUCTIVE PULMONARY DISEASE W (ACUTE) EXACERBATION (4) HLD (hyperlipidemia) Code(s): E78.5 - HYPERLIPIDEMIA, UNSPECIFIED (5) HTN (hypertension) Code(s): I10 - ESSENTIAL (PRIMARY) HYPERTENSION (6) Obesity Code(s): E66.9 - OBESITY, UNSPECIFIED Qualifiers: Obesity type: due to excess calories Obesity classification: adult class 2 (BMI 35 - 39.9) Serious obesity comorbidity presence: with serious comorbidity Body mass index: BMI 36.0-36.9 Qualified Code(s): E66.01 - Morbid (severe) obesity due to excess calories; Z68.36 - Body mass index (BMI) 36.0-36.9, adult; Z68.36 - Body mass index (BMI) 36.0-36.9, adult
[2017-02-17] MEDS: ATORVASTATIN CA 80 MG TABLET (FP) PO SCH (21:14)
[2017-02-18] MEDS: FUROSEMIDE 40 MG/4 ML INJECTABLE VIAL IVPUSH SCH ×2 (06:09→13:10)
[2017-02-18] MEDS: ALBUTEROL SO4 0.083% IH SOL 2.5 MG/3 ML VIAL.NEB. NEB SCH ×3 (06:11→14:30)
[2017-02-18 08:28] LABS: CHLORIDE 99 mmol/L (98-107); POTASSIUM 4.1 mmol/L (3.5-5.1); SODIUM 139 mmol/L (136-145)
[2017-02-18 08:33] LABS: ANION GAP 5 (8-16); BLOOD UREA NITROGEN 37 mg/dL (7-18); CALCIUM 8.5 mg/dL (8.5-10.1); CO2 35 mmol/L (21-32); CREATININE 0.9 mg/dL (0.55-1.02); GLUCOSE,RANDOM 94 mg/dL (74-106)
[2017-02-18] MEDS ORDERED: PT OWN MED DRAWER 7, Y5N ONE (09:24)
[2017-02-18] MEDS: ISOSORBIDE MONONITRATE 30 MG TAB.SR.24H (FP) PO SCH (09:34)
[2017-02-18] MEDS: VALSARTAN 80 MG TABLET (UD) PO SCH (09:35)
[2017-02-18] MEDS: LORATADINE 10 MG TABLET PO SCH (09:35)
[2017-02-18] MEDS: PARoxetine HCL 10 MG TABLET (FP) PO SCH (09:35)
[2017-02-18] MEDS: METOPROLOL TARTRATE 25 MG TABLET (FP) PO SCH (09:35)
--- NOTE | 2017-02-18 11:19 | PN ---
Progress Note, Physician History of Present Illness: PULMONARY ALERT,FEELING BETTER,LESS DYSPNEIC,+COUGH - Current Medication List Current Medications: Active Medications Albuterol Sulfate (Ventolin 0.083% Nebulizer Soln -) 1 amp NEB Q4HWA [facility] Last Admin: 02/18/17 10:25 Dose: 1 amp Atorvastatin Calcium (Lipitor -) 80 mg PO HS [facility] Last Admin: 02/17/17 21:14 Dose: 80 mg Furosemide (Lasix Injection -) 40 mg IVPUSH BID@0600,1400 [facility] Last Admin: 02/18/17 06:09 Dose: 40 mg Guaifenesin (Robitussin Dm -) 10 ml PO Q6H PRN PRN Reason: COUGH Last Admin: 02/17/17 21:15 Dose: 10 ml Isosorbide Mononitrate (Imdur -) 30 mg PO DAILY [facility] Last Admin: 02/18/17 09:34 Dose: 30 mg Loratadine (Claritin -) 10 mg PO DAILY [facility] Last Admin: 02/18/17 09:35 Dose: 10 mg Lorazepam (Ativan -) 0.5 mg PO DAILY PRN PRN Reason: ANXIETY Last Admin: 02/12/17 21:02 Dose: 0.5 mg Metoprolol Tartrate (Lopressor -) 25 mg PO DAILY [facility] Last Admin: 02/18/17 09:35 Dose: 25 mg Paroxetine HCl (Paxil -) 10 mg PO DAILY [facility] Last Admin: 02/18/17 09:35 Dose: 10 mg Tiotropium Kimberly (Spiriva -) 1 puff IH DAILY [facility] Last Admin: 02/17/17 09:35 Dose: 1 puff Valsartan (Diovan -) 80 mg PO BID [facility] Last Admin: 02/18/17 09:35 Dose: 80 mg - Objective Vital Signs: Vital Signs Temperature 98.6 F 02/18/17 06:00 Pulse Rate 86 02/18/17 06:00 Respiratory Rate 20 02/18/17 06:00 Blood Pressure 126/56 02/18/17 06:00 O2 Sat by Pulse Oximetry (%) 95 02/17/17 21:00 Constitutional: Yes: Well Nourished, Calm Eyes: Yes: WNL HENT: Yes: WNL Neck: Yes: WNL Cardiovascular: Yes: Regular Rate and Rhythm, S1, S2 Respiratory: Yes: Rales (BIBASILAR RALES) Gastrointestinal: Yes: Normal Bowel Sounds, Soft Extremities: Yes: WNL Edema: Yes Labs: CBC, BMP 02/18/17 07:34 INR, PTT INR 1.08 (0.82-1.09) 02/11/17 21:00 Assessment/Plan Problem List - Problems (1) Acute exacerbation of CHF (congestive heart failure) Code(s): I50.9 - HEART FAILURE, UNSPECIFIED Qualifiers: Congestive heart failure type: unspecified congestive heart failure type Qualified Code(s): I50.9 - Heart failure, unspecified (2) SOB (shortness of breath) Code(s): R06.02 - SHORTNESS OF BREATH (3) COPD exacerbation Code(s): J44.1 - CHRONIC OBSTRUCTIVE PULMONARY DISEASE W (ACUTE) EXACERBATION (4) HLD (hyperlipidemia) Code(s): E78.5 - HYPERLIPIDEMIA, UNSPECIFIED (5) HTN (hypertension) Code(s): I10 - ESSENTIAL (PRIMARY) HYPERTENSION (6) Obesity Code(s): E66.9 - OBESITY, UNSPECIFIED Assessment/Plan ACUTE ON CHRONIC CHF CARDIOMYOPATHY HTN HLD COPD OSAS AHI 19.1 OBESITY O2 TO MAINTAIN SAT>90% BRONCHODILATORS NEEDED CONTIUE DIURETICS NA RESTRICT DIET DAILY WEIGHTS PFTS OUTPATIENT FULL SLEEP STUDIES OUTPATIENT DR CAPELLAN
[2017-02-18 12:17] VITALS: BP 138/59; PULSE 67; TEMP 98.5
--- NOTE | 2017-02-18 12:44 | PN ---
Progress Note (short form) - Note Progress Note: s: no cp sob palps dizzy, le edema better but still present o: Current Medications Albuterol Sulfate (Ventolin 0.083% Nebulizer Soln -) 1 amp NEB Q4HWA [facility] Last Admin: 02/18/17 10:25 Dose: 1 amp Atorvastatin Calcium (Lipitor -) 80 mg PO HS [facility] Last Admin: 02/17/17 21:14 Dose: 80 mg Furosemide (Lasix Injection -) 40 mg IVPUSH BID@0600,1400 [facility] Last Admin: 02/18/17 06:09 Dose: 40 mg Guaifenesin (Robitussin Dm -) 10 ml PO Q6H PRN PRN Reason: COUGH Last Admin: 02/17/17 21:15 Dose: 10 ml Isosorbide Mononitrate (Imdur -) 30 mg PO DAILY [facility] Last Admin: 02/18/17 09:34 Dose: 30 mg Loratadine (Claritin -) 10 mg PO DAILY [facility] Last Admin: 02/18/17 09:35 Dose: 10 mg Lorazepam (Ativan -) 0.5 mg PO DAILY PRN PRN Reason: ANXIETY Last Admin: 02/12/17 21:02 Dose: 0.5 mg Metoprolol Tartrate (Lopressor -) 25 mg PO DAILY [facility] Last Admin: 02/18/17 09:35 Dose: 25 mg Paroxetine HCl (Paxil -) 10 mg PO DAILY [facility] Last Admin: 02/18/17 09:35 Dose: 10 mg Tiotropium Putney (Spiriva -) 1 puff IH DAILY [facility] Last Admin: 02/17/17 09:35 Dose: 1 puff Valsartan (Diovan -) 80 mg PO BID [facility] Last Admin: 02/18/17 09:35 Dose: 80 mg Vital Signs - 24 hr 02/17/17 02/17/17 02/17/17 13:55 18:00 21:00 Temperature 98.4 F 98.0 F Pulse Rate 69 79 Respiratory 19 20 Rate Blood Pressure 118/58 115/43 O2 Sat by Pulse 95 Oximetry (%) 02/17/17 02/18/17 02/18/17 22:00 02:00 06:00 Temperature 98.6 F 98.0 F 98.6 F Pulse Rate 71 111 H 86 Respiratory 20 20 20 Rate Blood Pressure 125/67 138/70 126/56 O2 Sat by Pulse Oximetry (%) 02/18/17 02/18/17 09:00 10:00 Temperature 98.5 F Pulse Rate 67 Respiratory 20 20 Rate Blood Pressure 138/59 O2 Sat by Pulse Oximetry (%) Intake & Output 02/16/17 02/17/17 02/18/17 02/19/17 07:59 07:59 07:59 07:59 Intake Total 500 400 Balance 500 400 Weight 194 lb 6.4 oz 193 lb 6.4 oz 194 lb 0.5 oz nad, calm jvd elevated, neck supple rrr nl s1, s2 2/6 sys murmur at lsb and apex cta bl nl effort + bs soft nt nd ext with trace edema. chronic venous stasis changes aaox3 no jaundice, diaphoresis CBC, BMP 02/18/17 07:34 ekg: Lbbb tele: sr echo 01/2017: nl lv size/fn. tds for rwma. rv not well seen. mod unruly. 1+ mr/ tr. rvsp 40-50. chest cta 01/2017: no PE. small bilateral pleural effusions. Of note also with calcified cors by my review Mayra stress MPI 06/2012: small, mild reversible anterior wall defect c/w anterior ischemia vs variable breast attenuation artifact. a/p: 76 with h/o HTN, hl, pulm htn, known lbbb, diastolic hf on po lasix, copd/ chronic bronchitis (previously prescribed home O2 but doesn't use regularly), anxiety who p/w progressive carbajal. carbajal/acute diastolic hf exacerbation - sx's improving with IV lasix. cr stable, on lasix 40 iv bid con't. daily weights, bmp --> Well diuresed. Ok to d/c home on lasix 60 mg daily with close cardiology follow up. - echo without new structural abnormalities. - pulm following. htn - controlled on home regimen hld - con't statin kanu, per pulm dc tele
== END 2017-02-18 14:49 | disposition home or self-care (01) | DRG 292 ==
LOC: JER 15:49 → JERBED 02-12 02:13 → OBSVTOIN 02-12 15:08 → J4W 02-12 20:25
PROVIDERS: ADMIT Internal Medicine; ATTEND Internal Medicine
DX: I11.0 Hypertensive heart disease with heart failure (principal); J44.1 Chronic obstructive pulmonary disease with (acute) exacerbation; I50.33 Acute on chronic diastolic (congestive) heart failure; E78.5 Hyperlipidemia, unspecified; F41.9 Anxiety disorder, unspecified; E66.9 Obesity, unspecified; Z68.36 Body mass index [BMI] 36.0-36.9, adult; G47.30 Sleep apnea, unspecified; I42.9 Cardiomyopathy, unspecified
CPT/HCPCS: 36415; 71020-TC; 71275-TC; 80048; 80053; 82550; 82553; 83735; 83880; 84100; 84484; 85025; 85379; 85610; 93005; 93010; 93306-TC; 94640; 99284-25; G0378

== ENCOUNTER 2018-11-27 16:23 | Inpatient (IN) | payer OTHER, MEDICARE ==
[2018-11-27] MEDS ORDERED: methylPREDNISolone NA SUCC 125 MG/2 ML VIAL IVPB ONE (16:43)
--- NOTE | 2018-11-27 16:46 | PDOC ---
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
[2018-11-27 17:31] LABS: EOS % 4.5 % (0-4.5); HEMATOCRIT 32.9 % (32.4-45.2); HEMOGLOBIN 10.9 GM/dL (10.7-15.3); LYMPH % 22.9 % (8-40); MCH 31.8 pg (25.7-33.7); MCHC 33.3 g/dl (32.0-36.0); MEAN CELL VOLUME 95.7 fl (80-96); MEAN PLT VOLUME 7.6 fl (7.5-11.1); MONO % 7.1 % (3.8-10.2); NEUT % 64.5 % (42.8-82.8); PLATELET COUNT 254 K/MM3 (134-434); RBC 3.43 M/mm3 (3.60-5.2); WHITE BLOOD COUNT 8.7 K/mm3 (4.0-10.0)
[2018-11-27 18:00] LABS: ALBUMIN 3.3 g/dl (3.4-5.0); BILIRUBIN,TOTAL 0.5 mg/dL (0.2-1); BLOOD UREA NITROGEN 24.3 mg/dL (7-18); POTASSIUM 3.5 mmol/L (3.5-5.1); TOT PROT 6.1 g/dl (6.4-8.2)
[2018-11-27] MEDS: ALBUTEROL SO4 2.5/IPRATROPIUM 0.5 INH SOL 3 ML VIAL.NEB. NEB SCH ×2 (19:04→19:05)
[2018-11-27] MEDS ORDERED: ALBUTEROL SO4 0.083% IH SOL 2.5 MG/3 ML VIAL.NEB. NEB ONE (19:08)
[2018-11-27] MEDS ORDERED: methylPREDNISolone NA SUCC 125 MG/2 ML VIAL ONE (19:08)
[2018-11-27] MEDS ORDERED: ALBUTEROL SO4 2.5/IPRATROPIUM 0.5 INH SOL 3 ML VIAL.NEB. NEB ONE (19:10)
--- NOTE | 2018-11-27 19:12 | PDOC ---
History of Present Illness - General Chief Complaint: Asthma Stated Complaint: DIFF BREATHING Time Seen by Provider: 11/27/18 16:35 History Source: Patient Exam Limitations: No Limitations - History of Present Illness Initial Comments: 11/27/18 20:39 HISTORY OF PRESENT ILLNESS: No recent travel or sick contacts. Is a 78-year-old woman with past medical history of COPD and diastolic heart failure presents to the emergency department for evaluation of 1 week of cough and increasing shortness of breath. Patient reports initially had a dry productive cough which progressed to a moist cough with thick green sputum. Patient was seen by her primary doctor and was given a course of steroids and a Z-José Miguel without relief of symptoms. Patient was reevaluated by her PMD today was referred to the emergency department for potential admission. She denies any fevers, chills, chest pain. She denies PND or decrease in exercise tolerance due to shortness of breath. PAST MEDICAL HISTORY: See HPI SURGICAL HISTORY: Denies ALLERGIES: No known drug allergies REVIEW OF SYSTEMS General/Constitutional: Denies fever or chills. Denies weakness, weight change. HEENT: Denies change in vision. Denies ear pain or discharge. Denies sore throat. Cardiovascular: Denies chest pain or shortness of breath. Respiratory: See HPI Gastrointestinal: Denies nausea, vomiting, diarrhea or constipation. Denies rectal bleeding. Genitourinary: Denies dysuria, frequency, or change in urination. Musculoskeletal: Denies joint or muscle swelling or pain. Denies neck or back pain. Skin and breasts: Denies rash or easy bruising. Neurologic: Denies headache, vertigo, loss of consciousness, or loss of sensation. Psychiatric: Denies depression or anxiety. Endocrine: Denies increased thirst. Denies abnormal weight change. Hematologic/Lymphatic: Denies anemia, easy bleeding, or history of blood clots. Allergic/Immunologic: Denies hives or skin allergy. Denies latex allergy. PHYSICAL EXAM General Appearance: Well-appearing, appropriately dressed. No apparent distress , no intoxication. HEENT: EOMI, PERRLA, normal ENT inspection, normal voice, TMs normal, pharynx normal. No conjunctival pallor. No photophobia, scleral icterus. Neck: Supple. Trachea midline. No tenderness, rigidity, carotid bruit, stridor , lymphadenopathy, or thyromegaly. Respiratory/Chest: Speaking in full sentences. Lungs CTAB. No chest tenderness , respiratory distress. (+)accessory muscle use. End expiratory wheezes present bibasilarly. Cardiovascular: RRR. S1, S2. No JVD, murmur, bradycardia, tachycardia. Vascular Pulses: Dorsalis-Pedis (R): 2+, Dorsalis-Pedis (L): 2+ Gastrointestinal/Abdominal: Normal bowel sounds. Abdomen soft, non-distended. No tenderness or rebound tenderness. No organomegaly, pulsatile mass, guarding, hernia, hepatomegaly, splenomegaly. Lymphatic: No adenopathy, tenderness. Musculoskeletal/Extremities: Normal inspection. FROM of all extremities, normal capillary refill. Pelvis Stable. No CVA tenderness. No tenderness to extremities, swelling, erythema or deformity. +1 pedal edema present bilaterally. Integumentary: Appropriate color, dry, warm. No cyanosis, erythema, jaundice or rash Neurologic: software support representative II-XII intact. Fully oriented, alert. Appropriate mood/affect. Motor strength 5/5. No appreciable EOM palsy, facial droop or sensory deficit. Past History - Past Medical History Allergies/Adverse Reactions: Allergies Allergy/AdvReac Type Severity Reaction Status Date / Time No Known Allergies Allergy Verified 11/27/18 16:39 Home Medications: Ambulatory Orders Atorvastatin Ca [Lipitor] 80 mg PO HS 02/12/15 Albuterol 0.083% Nebulizer Basilia [Ventolin 0.083% Nebulizer Soln -] 1 amp NEB Q4HPO #120 amp 02/21/15 Lorazepam 0.5 mg PO DAILY PRN 02/12/17 Albuterol Sulfate Inhaler - [Ventolin HFA Inhaler -] 2 inh PO Q4H 11/28/18 Benzonatate [Tessalon Perle -] 100 mg PO TID 11/28/18 Budesonide/Formeterol Fumarate [SYMBICORT 160/4.5mcg -] 2 inh PO BID 11/28/18 Cholecalciferol (Vitamin D3) [Vitamin D -] 1,000 unit PO DAILY 11/28/18 Furosemide 40 mg PO DAILY 11/28/18 Metoprolol Succinate 25 mg PO DAILY 11/28/18 Omeprazole/Sodium Bicarbonate [Omeprazole-Bicarb 20-1,680 Pkt] 1 each PO DAILY 11/28/18 Sertraline HCl 25 mg PO DAILY 11/28/18 Triamcinolone 0.1% Ointment [Aristocort 0.1% Ointment -] 1 applic TP DAILY 11/28 Cyclobenzaprine HCl 5 mg PO HS PRN #3 tablet 12/02/18 Furosemide [Lasix -] 40 mg PO BID@0600,1400 #60 tablet 12/02/18 Prednisone 5 mg PO DAILY #3 tablet 12/02/18 Prednisone 10 mg PO DAILY #30 tablet 12/02/18 Valsartan [Diovan] 80 mg PO BID #60 tablet 12/02/18 Cardiac Disorders: Yes (enlarged heart) COPD: Yes HTN: Yes Hypercholesterolemia: Yes Psychiatric Problems: Yes (anxiety) - Immunization History Immunization Up to Date: No - Psycho Social/Smoking Cessation Hx Smoking History: Never smoked Hx Alcohol Use: No Drug/Substance Use Hx: No Substance Use Type: None Hx Substance Use Treatment: No *Physical Exam - Vital Signs Last Vital Signs Temp Pulse Resp BP Pulse Ox 98.2 F 74 17 163/59 L 95 11/27/18 16:39 11/27/18 16:39 11/27/18 16:39 11/27/18 16:39 11/27/18 16:39 Heart Score/ECG Review - ECG Intrepretation Rhythm: Regular Rhythm ED Treatment Course - LABORATORY CBC & Chemistry Diagram: 12/02/18 06:25 11/30/18 08:41 - ADDITIONAL ORDERS Additional order review: Laboratory Results 11/27/18 17:09 Sodium 140 Potassium 3.5 Chloride 109 H Carbon Dioxide 25 Anion Gap 6 L BUN 24.3 H Creatinine 1.0 Est GFR (CKD-EPI)AfAm 62.93 Est GFR (CKD-EPI)NonAf 54.30 Random Glucose 136 H Calcium 8.0 L Total Bilirubin 0.5 AST 42 H ALT 58 Alkaline Phosphatase 93 Total Protein 6.1 L Albumin 3.3 L 11/27/18 17:09 RBC 3.43 L MCV 95.7 MCHC 33.3 RDW 13.0 MPV 7.6 Neutrophils % 64.5 Lymphocytes % 22.9 Monocytes % 7.1 Eosinophils % 4.5 Basophils % 1.0 - Medications Given in the ED: ED Medications Discontinued Medications Generic Name Dose Route Start Last Admin Trade Name Freq PRN Reason Stop Dose Admin Albuterol/Ipratropium 1 amp 10/11/19 16:45 11/27/18 19:05 Duoneb - NEB 11/27/18 17:31 1 amp Q15M RAGHU Administration Methylprednisolone Sodium Succinate 125 mg 11/27/18 16:43 11/27/18 19:04 Solu-Medrol - IVPB 11/27/18 16:44 125 mg ONCE ONE Administration Medical Decision Making - Medical Decision Making 11/27/18 19:15 A/P: 78-year-old woman with 1 week of productive cough and shortness of breath with trace pedal edema Laboratory testing is unremarkable I will add cardiac profile and BNP as patient does have a history of diastolic heart failure EKG reviewed by me: SR at 71. LBBB. TWI in lateral leads. No significant change from EKG 02/11/2017. CXR as read by me: Enlarged heart- stable since CXR performed 02/11/17. L upper lobe scarring. R middle lung with scarring. No congestion present. Right pulmonary effusion seen on previous chest x-ray is no longer present. Given patient has been treated as an outpatient with steroids and antibiotics without improvement in symptoms patient will likely have to be admitted to the hospital. Will await cardiac profile prior to admission. 11/27/18 20:44 BNP is 1800 which is patient's baseline Initial troponin less than 0.02 I will contact hospitalist for admission 11/27/18 20:[address] Rea who accepts patient for [facility] admission Under Dr. Alston. Discharge - Discharge Information Problems reviewed: Yes Clinical Impression/Diagnosis: COPD exacerbation Condition: Improved Disposition: HOME - Admission Yes - Follow up/Referral - Patient Discharge Instructions - Post Discharge Activity
--- NOTE | 2018-11-27 19:40 | PDOC ---
*Physical Exam - Vital Signs Last Vital Signs Temp Pulse Resp BP Pulse Ox 98.2 F 74 17 163/59 L 95 11/27/18 16:39 11/27/18 16:39 11/27/18 16:39 11/27/18 16:39 11/27/18 16:39 ED Treatment Course - LABORATORY CBC & Chemistry Diagram: 11/30/18 08:41 11/30/18 08:41 - ADDITIONAL ORDERS Additional order review: Laboratory Results 11/27/18 17:09 Sodium 140 Potassium 3.5 Chloride 109 H Carbon Dioxide 25 Anion Gap 6 L BUN 24.3 H Creatinine 1.0 Est GFR (CKD-EPI)AfAm 62.93 Est GFR (CKD-EPI)NonAf 54.30 Random Glucose 136 H Calcium 8.0 L Total Bilirubin 0.5 AST 42 H ALT 58 Alkaline Phosphatase 93 Total Protein 6.1 L Albumin 3.3 L 11/27/18 17:09 RBC 3.43 L MCV 95.7 MCHC 33.3 RDW 13.0 MPV 7.6 Neutrophils % 64.5 Lymphocytes % 22.9 Monocytes % 7.1 Eosinophils % 4.5 Basophils % 1.0 - Medications Given in the ED: ED Medications Discontinued Medications Generic Name Dose Route Start Last Admin Trade Name Freq PRN Reason Stop Dose Admin Albuterol/Ipratropium 1 amp 11/27/18 16:45 11/27/18 19:05 Duoneb - NEB 11/27/18 17:31 1 amp Q15M RAGHU Administration Methylprednisolone Sodium Succinate 125 mg 11/27/18 16:43 11/27/18 19:04 Solu-Medrol - IVPB 11/27/18 16:44 125 mg ONCE ONE Administration Medical Decision Making - Medical Decision Making 11/27/18 19:40 MS Rudd is a 78 yo F presenting with 1 week of productive cough and shortness of breath S/p outpatient treatment (steroids and abx) with out substantial improvement Pt seen by Midlevel Provider under my direct supervision Pt interviewed and examined Ancillary studies reviewed Plan for admission I agree with plan as outlined by Midlevel Provider 11/27/18 19:41 Discharge - Discharge Information Problems reviewed: Yes Clinical Impression/Diagnosis: COPD exacerbation Condition: Fair - Follow up/Referral - Patient Discharge Instructions - Post Discharge Activity
[2018-11-27 20:14] LABS: N-TERMINAL BNP 1800.9 pg/ml (5-450)
--- NOTE | 2018-11-28 00:07 | HP ---
<Lambert White - Last Filed: 11/28/18 03:49> CHIEF COMPLAINT: shortness of breath PCP: Dr. Mcnamara HISTORY OF PRESENT ILLNESS: 78 year old female with a past medical history of COPD and heart failure with preserved ejection fraction, hypertension, hyperlipidemia arrived to the emergency room complaining of shortness of breath and productive cough. Recently seen by her PCP for short course of steroids and antibiotics. Patient reports some improvement in her symptoms after that treatment but it got to a point where she decided to come to the emergency room. She reports that she has had some mild bilateral swelling of her legs and increased dyspnea on moderate exertion compared to normal. States that she has oxygen at home, but only uses it on occasional. Patient never smoked, and said that her lung disease is from secondhand exposure to her 's smoking. No sick contacts, no recent travel. Currently feels improved since admission. Denies chest pain, SOB, nausea , vomiting, diarrhea, fevers, chills. ER course was notable for: (1) CXR showing b/l congestive changes (2) medrol given in ED (3) Recent Travel: denies recent travel PAST MEDICAL HISTORY: hx of COPD, HFpEF, cardiomyopathy PAST SURGICAL HISTORY: none reported Social History: Smoking: never smoked, exposure to secondhand smoke Alcohol: never Drugs: never Family History: many cancers in the family - lung cancer in sister, cancer in brother and other sister Allergies No Known Allergies Allergy (Verified 11/27/18 16:39) HOME MEDICATIONS: Home Medications Medication Instructions Recorded Atorvastatin Ca [Lipitor] 80 mg PO HS 02/12/15 Isosorbide Mononitrate 30 mg PO DAILY 02/12/15 Metoprolol Tartrate 25 mg PO DAILY 02/12/15 Paroxetine HCl 10 mg PO DAILY 02/12/15 Albuterol 0.083% Nebulizer Basilia 1 amp NEB Q4HPO #120 amp 02/21/15 [Ventolin 0.083% Nebulizer Soln -] Albuterol Sulfate [Proair Hfa] 8.5 gm IH QID PRN 02/12/17 Folic Acid 1 mg PO DAILY 02/12/17 Guaifenesin 100 mg PO Q4H PRN 02/12/17 Lorazepam 0.5 mg PO DAILY PRN 02/12/17 Furosemide [Lasix] 60 mg PO DAILY #90 tablet 02/18/17 Tiotropium [place] [Spiriva] 1 puff IH DAILY inh 02/18/17 Valsartan [Diovan] 80 mg PO BID #60 tablet 02/18/17 REVIEW OF SYSTEMS CONSTITUTIONAL: Absent: fever, chills, diaphoresis, generalized weakness, malaise, loss of appetite, weight change HEENT: Absent: rhinorrhea, nasal congestion, throat pain, throat swelling, difficulty swallowing, mouth swelling, ear pain, eye pain, visual changes CARDIOVASCULAR: Absent: chest pain, syncope, palpitations, irregular heart rate, lightheadedness , peripheral edema RESPIRATORY: shortness of breath Absent: cough, dyspnea with exertion, orthopnea, wheezing, stridor, hemoptysis GASTROINTESTINAL: Absent: abdominal pain, abdominal distension, nausea, vomiting, diarrhea, constipation, melena, hematochezia GENITOURINARY: Absent: dysuria, frequency, urgency, hesitancy, hematuria, flank pain, genital pain MUSCULOSKELETAL: Absent: myalgia, arthralgia, joint swelling, back pain, neck pain SKIN: Absent: rash, itching, pallor HEMATOLOGIC/IMMUNOLOGIC: Absent: easy bleeding, easy bruising, lymphadenopathy, frequent infections ENDOCRINE: Absent: unexplained weight gain, unexplained weight loss, heat intolerance, cold intolerance NEUROLOGIC: Absent: headache, focal weakness or paresthesias, dizziness, unsteady gait, seizure, mental status changes, bladder or bowel incontinence PSYCHIATRIC: Absent: anxiety, depression, suicidal or homicidal ideation, hallucinations. PHYSICAL EXAMINATION Vital Signs - 24 hr 11/27/18 16:39 Temperature 98.2 F Pulse Rate 74 Respiratory 17 Rate Blood Pressure 163/59 L O2 Sat by Pulse 95 Oximetry (%) GENERAL: A&Ox3, no acute distress EYES: PERRLA, EOMI ENT: Moist mucus membranes NECK: No JVD LUNGS: bilateral wheezing noted on exam, crackles auscultated at the bases HEART: RRR, no murmurs ABDOMEN: Soft, nontender, BS present MUSCULOSKELETAL: No CVA Tenderness EXTREMITIES: 2+ pulses, 2+ pitting edema bilaterally NEUROLOGICAL: Cranial nerves II-XII intact. Laboratory Results - last 24 hr 11/27/18 11/27/18 11/27/18 17:09 17:09 19:38 WBC 8.7 RBC 3.43 L Hgb 10.9 Hct 32.9 D MCV 95.7 MCH 31.8 MCHC 33.3 RDW 13.0 Plt Count 254 MPV 7.6 Absolute Neuts (auto) 5.6 Neutrophils % 64.5 Lymphocytes % 22.9 Monocytes % 7.1 Eosinophils % 4.5 Basophils % 1.0 Nucleated RBC % 0 Sodium 140 Potassium 3.5 Chloride 109 H Carbon Dioxide 25 Anion Gap 6 L BUN 24.3 H Creatinine 1.0 Est GFR (CKD-EPI)AfAm 62.93 Est GFR (CKD-EPI)NonAf 54.30 Random Glucose 136 H Calcium 8.0 L Total Bilirubin 0.5 AST 42 H ALT 58 Alkaline Phosphatase 93 Creatine Kinase 303 H Creatine Kinase Index 0.5 CK-MB (CK-2) 1.7 Troponin I 0.02 B-Natriuretic Peptide Total Protein 6.1 L Albumin 3.3 L 11/27/18 19:38 WBC RBC Hgb Hct MCV MCH MCHC RDW Plt Count MPV Absolute Neuts (auto) Neutrophils % Lymphocytes % Monocytes % Eosinophils % Basophils % Nucleated RBC % Sodium Potassium Chloride Carbon Dioxide Anion Gap BUN Creatinine Est GFR (CKD-EPI)AfAm Est GFR (CKD-EPI)NonAf Random Glucose Calcium Total Bilirubin AST ALT Alkaline Phosphatase Creatine Kinase Creatine Kinase Index CK-MB (CK-2) Troponin I B-Natriuretic Peptide 1800.9 H Total Protein Albumin Current Medications Albuterol Sulfate (Ventolin 0.083% Nebulizer Soln -) 1 amp NEB RQID PRN PRN Reason: SHORT OF BREATH/WHEEZING Albuterol/Ipratropium (Duoneb -) 1 amp NEB RQID [facility] Last Admin: 11/28/18 00:29 Dose: 1 amp Atorvastatin Calcium (Lipitor -) 80 mg PO HS [facility] Furosemide (Lasix Injection -) 40 mg IVPUSH BID@0600,1400 [facility] Methylprednisolone Sodium Succinate (Solu-Medrol -) 60 mg IVPUSH Q6H-IV [facility] Metoprolol Succinate (Toprol Xl -) 25 mg PO DAILY [facility] Valsartan (Diovan -) 80 mg PO BID [facility] Last Admin: 11/28/18 00:29 Dose: 80 mg ASSESSMENT/PLAN: 78 year old female with a past medical history of COPD and heart failure with preserved ejection fraction, hypertension, hyperlipidemia arrived to the emergency room complaining of shortness of breath and productive cough #Acute Hypoxic Respiratory Failure: 2/2 combination of COPD and CHF exacerbation (BNP 1800), will treat for both -improved after dose of medrol -continue medrol 60 IV q6h -duonebs q6h -albuterol PRN -will diurese with lasix 40 IV BID -tele monitoring -accurate Is/Os -daily weights -cardiology consulted -pulm consulted -recommend respiratory therapy to do ambulatory O2 monitoring while inpatient #Hypertension: nor currently hypertensive -continue matoprolol 25 -continue valsartan 80 BID #Hyperlipidemia -continue atorvastatin 80 #FEN -no standing fluids #Prophylaxis -SCDs for now, can do chemical prophylaxis; will start heparin 5000 subq tid #Disposition -admit tele Visit type - Emergency Visit Emergency Visit: Yes ED Registration Date: 11/27/18 Care time: The patient presented to the Emergency Department on the above date and was hospitalized for further evaluation of their emergent condition. - New Patient This patient is new to me today: Yes Date on this admission: 11/28/18 - Critical Care Critical Care patient: No ATTENDING PHYSICIAN STATEMENT I saw and evaluated the patient. I reviewed the resident's note and discussed the case with the resident. I agree with the resident's findings and plan as documented. SUBJECTIVE: OBJECTIVE: ASSESSMENT AND PLAN: <Edwar Yancey - Last Filed: 12/05/18 10:54> Seen and examined; independently verified all diagnostic information as well as historical and exam findings as outlined in the resdient note. I agree with their above documentation aside from as is supplemented by myself below. 10 sys ROS done and negative aside from HPI VS, labs, imaging reviewed NAD, AAO, resting in bed RRR s1/2 no mgr Requiring O2, scattered crackles/wheezes, w/ sym exp NT ND +BS CN2-12 wnl, no fnd Normal mood, appropriate behavior Independently reviewed all labs and imaiging CXR with suspected fluid overload; pending official report EKG reviewed; no new ischemic changes noted. A/P: Presents with acute hypoxic respiratory failure likely secondary to COPD and CHF exacerbation Agree with resident problem list Steroids, BDs, consider diuretics Consutling pulmoanry and cardio sleep study avoid IVF Continue home BB Full Code ATTENDING PHYSICIAN STATEMENT I saw and evaluated the patient. I reviewed the resident's note and discussed the case with the resident. I agree with the resident's findings and plan as documented. SUBJECTIVE: OBJECTIVE: ASSESSMENT AND PLAN:
[2018-11-28] MEDS ORDERED: POTASSIUM CHLORIDE TABS 20 MEQ TABLET.ER (FP) PO ONE (00:08)
[2018-11-28] MEDS ORDERED: ALBUTEROL SO4 0.083% IH SOL 2.5 MG/3 ML VIAL.NEB. NEB PRN ×2 (00:11→15:11)
[2018-11-28] MEDS: VALSARTAN 80 MG TABLET (UD) PO SCH ×3 (00:29→21:20)
[2018-11-28] MEDS: ALBUTEROL SO4 2.5/IPRATROPIUM 0.5 INH SOL 3 ML VIAL.NEB. NEB SCH ×4 (00:29→17:18)
[2018-11-28] MEDS ORDERED: methylPREDNISolone NA SUCC 40 MG/1 ML VIAL IVPUSH SCH (03:00)
[2018-11-28] MEDS ORDERED: methylPREDNISolone NA SUCC 40 MG/1 ML VIAL ONE ×2 (03:46→17:20)
[2018-11-28] MEDS: HEPARIN NA (PORCINE) 5,000 UNITS/ML 1ML VIAL SQ SCH ×3 (06:43→21:20)
[2018-11-28] MEDS ORDERED: FUROSEMIDE 40 MG/4 ML INJECTABLE VIAL ONE (06:59)
[2018-11-28] MEDS: FUROSEMIDE 40 MG/4 ML INJECTABLE VIAL IVPUSH SCH ×2 (07:02→14:14)
[2018-11-28 07:44] LABS: HEMATOCRIT 35.2 % (32.4-45.2); HEMOGLOBIN 11.9 GM/dL (10.7-15.3); MCH 32.1 pg (25.7-33.7); MCHC 33.8 g/dl (32.0-36.0); MEAN CELL VOLUME 94.9 fl (80-96); MEAN PLT VOLUME 7.3 fl (7.5-11.1); PLATELET COUNT 271 K/MM3 (134-434); RBC 3.71 M/mm3 (3.60-5.2); RDW 13.1 % (11.6-15.6); WHITE BLOOD COUNT 7.1 K/mm3 (4.0-10.0)
[2018-11-28 08:20] LABS: BLOOD UREA NITROGEN 23.2 mg/dL (7-18); CALCIUM 8.6 mg/dL (8.5-10.1); CREATININE 1.1 mg/dL (0.55-1.3)
[2018-11-28 08:29] LABS: MAGNESIUM 2.2 mg/dL (1.8-2.4)
[2018-11-28 08:39] LABS: MAGNESIUM 2.1 mg/dL (1.8-2.4)
--- NOTE | 2018-11-28 09:47 | HOSP ---
Subjective - Review of Symptoms Events since last encounter: Patient is a 78 year old female with a PMHx of COPD and diastolic CHF with preserved ejection fraction, hypertension, hyperlipidemia arrived to the ED. c/ o of shortness of breath and productive cough. Recently seen by her PCP for short course of steroids and antibiotics. Temperature 97.8 F 11/28/18 09:30 Pulse Rate 65 10 09:30 Respiratory Rate 16 11/28/18 09:30 Blood Pressure 154/77 11/28/18 09:30 O2 Sat by Pulse Oximetry (%) 95 11/28/18 09:30 GENERAL: The patient is awake, alert, and fully oriented, in no acute distress. HEAD: Normal with no signs of trauma. EYES: PERRL, extraocular movements intact, sclera anicteric, conjunctiva clear. ENT: Ears normal, oropharynx clear without exudates, moist mucous membranes. NECK: Trachea midline, full range of motion, supple. LUNGS: Breath sounds equal, clear to auscultation bilaterally, no wheezes, no crackles, no accessory muscle use. HEART: Regular rate and rhythm, S1, S2 without murmur, rub or gallop. ABDOMEN: Soft, nontender, nondistended, normoactive bowel sounds, no guarding, no rebound, no hepatosplenomegaly, no masses. EXTREMITIES: 2+ pulses, warm, well-perfused, no edema. NEUROLOGICAL: Cranial nerves II through XII grossly intact. Normal speech, gait not observed. PSYCH: Normal mood, normal affect. SKIN: Warm, dry, normal turgor, no rashes or lesions noted CBCD WBC 7.1 K/mm3 (4.0-10.0) 11/28/18 07:25 RBC 3.71 M/mm3 (3.60-5.2) 11/28/18 07:25 Hgb 11.9 GM/dL (10.7-15.3) 11/28/18 07:25 Hct 35.2 % (32.4-45.2) 11/28/18 07:25 MCV 94.9 fl (80-96) 11/28/18 07:25 MCHC 33.8 g/dl (32.0-36.0) 11/28/18 07:25 RDW 13.1 % (11.6-15.6) 11/28/18 07:25 Plt Count 271 K/MM3 (134-434) 11/28/18 07:25 MPV 7.3 fl (7.5-11.1) L 11/28/18 07:25 CMP Sodium 145 mmol/L (136-145) 11/28/18 07:25 Potassium 4.0 mmol/L (3.5-5.1) 11/28/18 07:25 Chloride 112 mmol/L (98-107) H 11/28/18 07:25 Carbon Dioxide 27 mmol/L (21-32) 11/28/18 07:25 Anion Gap 6 MMOL/L (8-16) L 11/28/18 07:25 BUN 23.2 mg/dL (7-18) H 11/28/18 07:25 Creatinine 1.1 mg/dL (0.55-1.3) 11/28/18 07:25 Random Glucose 155 mg/dL (74-106) H 11/28/18 07:25 Calcium 8.6 mg/dL (8.5-10.1) 11/28/18 07:25 Total Bilirubin 0.5 mg/dL (0.2-1) 11/27/18 17:09 AST 42 U/L (15-37) H 11/27/18 17:09 ALT 58 U/L (13-61) 11/27/18 17:09 Alkaline Phosphatase 93 U/L (45-117) 11/27/18 17:09 Total Protein 6.1 g/dl (6.4-8.2) L 11/27/18 17:09 Albumin 3.3 g/dl (3.4-5.0) L 11/27/18 17:09 CARDIAC ENZYMES Creatine Kinase 303 U/L (26-192) H 11/27/18 19:38 Troponin I 0.02 ng/ml (0.00-0.05) 11/27/18 19:38 Current Medications Generic Name Dose Route Start Last Admin Trade Name Freq PRN Reason Stop Dose Admin Albuterol Sulfate 1 amp 11/28/18 00:11 Ventolin 0.083% Nebulizer Soln - NEB RQID PRN SHORT OF BREATH/WHEEZING Albuterol/Ipratropium 1 amp 11/28/18 00:15 11/28/18 00:29 Duoneb - NEB 1 amp RQID [facility] Administration Atorvastatin Calcium 80 mg 11/28/18 22:00 Lipitor - PO HS [facility] Furosemide 40 mg 11/28/18 06:00 11/28/18 07:02 Lasix Injection - IVPUSH 40 mg BID@0600,1400 [facility] Administration Heparin Sodium (Porcine) 5,000 unit 11/28/18 06:00 11/28/18 06:43 Heparin - SQ 5,000 unit TID [facility]AG[facility] Administration Methylprednisolone Sodium Succinate 60 mg 11/28/18 03:00 11/28/18 03:59 Solu-Medrol - IVPUSH 60 mg Q6H-IV [facility] Administration Metoprolol Succinate 25 mg 11/28/18 10:00 Toprol Xl - PO DAILY [facility] Valsartan 80 mg 11/28/18 00:15 11/28/18 00:29 Diovan - PO 80 mg BID [facility] Administration Home Medications Medication Instructions Recorded Atorvastatin Ca [Lipitor] 80 mg PO HS 02/12/15 Albuterol 0.083% Nebulizer Basilia 1 amp NEB Q4HPO #120 amp 02/21/15 [Ventolin 0.083% Nebulizer Soln -] Lorazepam 0.5 mg PO DAILY PRN 02/12/17 Albuterol Sulfate Inhaler - 2 inh PO Q4H 11/28/18 [Ventolin Hfa Inhaler -] Azithromycin 250 mg PO DAILY 11/28/18 Benzonatate [Tessalon Pearls -] 100 mg PO TID 11/28/18 Budesonide/Formeterol Fumarate 2 inh PO BID 11/28/18 [SYMBICORT 160/4.5mcg -] Cholecalciferol (Vitamin D3) 1,000 unit PO DAILY 11/28/18 [Vitamin D3 -] Furosemide 40 mg PO DAILY 11/28/18 Losartan Potassium 100 mg PO DAILY 11/28/18 Metoprolol Succinate 25 mg PO DAILY 11/28/18 Omeprazole/Sodium Bicarbonate 1 each PO DAILY 11/28/18 [Omeprazole-Bicarb 20-1,680 Pkt] Sertraline HCl 25 mg PO DAILY 11/28/18 Triamcinolone 0.1% Ointment 1 applic TP DAILY 11/28/18 [Aristocort 0.1% Ointment -] CXR: large heart, sclerotic knob, prominent mauricio and scarring or chronic atelectasis in the midlung field. Assessment and plan: Patient is a 78 year old female with a past medical history of COPD and heart failure with preserved ejection fraction, hypertension, hyperlipidemia arrived to the emergency room complaining of shortness of breath and productive cough. #Acute Hypoxic Respiratory Failure: due to copd exacerbation/chF #COPD : on solu medrol #CHF exacerbation (BNP 1800) #HTN: continue metoprolol 25, valsartan 80 BID #HLD continue atorvastatin 80 DVT Px: SCDs , heparin 5000 subq tid Physical Examination Vital Signs: Vital Signs Temperature 97.8 F 11/28/18 09:30 Pulse Rate 65 11/28/18 09:30 Respiratory Rate 16 11/28/18 09:30 Blood Pressure 154/77 11/28/18 09:30 O2 Sat by Pulse Oximetry (%) 95 11/28/18 09:30 Labs: CBC, BMP 11/28/18 07:25 11/28/18 07:25
[2018-11-28] MEDS: metoPROLOL SUCCINATE 25 MG TAB.SR.24H (FP) PO SCH (11:11)
[2018-11-28] MEDS: methylPREDNISolone NA SUCC 40 MG/1 ML VIAL IVPUSH SCH ×2 (11:12→17:18)
[2018-11-28] MEDS ORDERED: ALBUTEROL SO4 2.5/IPRATROPIUM 0.5 INH SOL 3 ML VIAL.NEB. NEB ONE ×2 (11:28→14:11)
--- NOTE | 2018-11-28 11:29 | EKG ---
Test Reason : Blood Pressure : / mmHG Vent. Rate : 071 BPM Atrial Rate : 071 BPM P-R Int : 102 ms QRS Dur : 184 ms QT Int : 486 ms P-R-T Axes : 059 022 132 degrees QTc Int : 528 ms POOR DATA QUALITY, INTERPRETATION MAY BE ADVERSELY AFFECTED SINUS RHYTHM WITH SHORT LA LEFT BUNDLE BRANCH BLOCK ABNORMAL ECG WHEN COMPARED WITH ECG OF 11-FEB-2017 20:54, LA INTERVAL HAS DECREASED Confirmed by Poppy Tellez ([id number]) on 11/28/2018 11:28:42 AM Referred By: Confirmed By:Poppy Tellez
--- NOTE | 2018-11-28 11:30 | CON.CARD ---
Cardiology Consult (text) - Consultation Consultation Note: CC: sob 78 with h/o HTN, hl, pulm htn, known lbbb, diastolic hf on po lasix, copd/ chronic bronchitis (previously prescribed home O2 but doesn't use regularly), anxiety who p/w shortness of breath for the last week with cough productive of sputum. Sees Dr. Sorensen for cardio. Saw her PCP recently for cough, was prescribed steroids and abx, didn't improve much, came to ER. Feels much better today, no chest pain, a little short of breath. no palps, dizziness, syncope. Stable edema. pmhx/pshx: per phi Social history: never smoker (2nd hand exposure) fam hx: no cardiac history ros: per hpi PCP - Dr. Mcnamara Vice President Safety: Dr. Fraire Project Developer: Dr. Sorensen Ambulatory Orders Atorvastatin Ca [Lipitor] 80 mg PO HS 02/12/15 Albuterol 0.083% Nebulizer Basilia [Ventolin 0.083% Nebulizer Soln -] 1 amp NEB Q4HPO #120 amp 02/21/15 Lorazepam 0.5 mg PO DAILY PRN 02/12/17 Albuterol Sulfate Inhaler - [Ventolin Hfa Inhaler -] 2 inh PO Q4H 11/28/18 Azithromycin 250 mg PO DAILY 11/28/18 Benzonatate [Tessalon Pearls -] 100 mg PO TID 11/28/18 Budesonide/Formeterol Fumarate [SYMBICORT 160/4.5mcg -] 2 inh PO BID 11/28/18 Cholecalciferol (Vitamin D3) [Vitamin D3 -] 1,000 unit PO DAILY 11/28/18 Furosemide 40 mg PO DAILY 11/28/18 Losartan Potassium 100 mg PO DAILY 11/28/18 Metoprolol Succinate 25 mg PO DAILY 11/28/18 Omeprazole/Sodium Bicarbonate [Omeprazole-Bicarb 20-1,680 Pkt] 1 each PO DAILY 11/28/18 Sertraline HCl 25 mg PO DAILY 11/28/18 Triamcinolone 0.1% Ointment [Aristocort 0.1% Ointment -] 1 applic TP DAILY 11/28 Current Medications Albuterol Sulfate (Ventolin 0.083% Nebulizer Soln -) 1 amp NEB RQID PRN PRN Reason: SHORT OF BREATH/WHEEZING Albuterol/Ipratropium (Duoneb -) 1 amp NEB RQID [facility] Last Admin: 11/28/18 00:29 Dose: 1 amp Atorvastatin Calcium (Lipitor -) 80 mg PO HS [facility] Furosemide (Lasix Injection -) 40 mg IVPUSH BID@0600,1400 [facility] Last Admin: 11/28/18 07:02 Dose: 40 mg Heparin Sodium (Porcine) (Heparin -) 5,000 unit SQ TID [facility] Last Admin: 11/28/18 06:43 Dose: 5,000 unit Methylprednisolone Sodium Succinate (Solu-Medrol -) 60 mg IVPUSH Q8H-IV [facility] Metoprolol Succinate (Toprol Xl -) 25 mg PO DAILY [facility] Valsartan (Diovan -) 80 mg PO BID [facility] Last Admin: 11/28/18 00:29 Dose: 80 mg Vital Signs Period Temp Pulse Resp BP Sys/Ambrose Pulse Ox Last 24 Hr 97.8 F-98.2 F 65-82 16-18 154-163/59-77 95-96 nad, calm +JVD rrr nl s1, s2 2/6 sys murmur at lsb and apex CTAB, dec breath sounds at bases, nl effort + bs soft nt nd ext 1+ edema gina lower ext aaox3 no jaundice, diaphoresis no carotid bruits not agitated Laboratory Last Values WBC 7.1 K/mm3 (4.0-10.0) 11/28/18 07:25 RBC 3.71 M/mm3 (3.60-5.2) 11/28/18 07:25 Hgb 11.9 GM/dL (10.7-15.3) 11/28/18 07:25 Hct 35.2 % (32.4-45.2) 11/28/18 07:25 MCV 94.9 fl (80-96) 11/28/18 07:25 MCH 32.1 pg (25.7-33.7) 11/28/18 07:25 MCHC 33.8 g/dl (32.0-36.0) 11/28/18 07:25 RDW 13.1 % (11.6-15.6) 11/28/18 07:25 Plt Count 271 K/MM3 (134-434) 11/28/18 07:25 MPV 7.3 fl (7.5-11.1) L 11/28/18 07:25 Absolute Neuts (auto) 5.6 K/mm3 (1.5-8.0) 11/27/18 17:09 Neutrophils % 64.5 % (42.8-82.8) 11/27/18 17:09 Lymphocytes % 22.9 % (8-40) 11/27/18 17:09 Monocytes % 7.1 % (3.8-10.2) 11/27/18 17:09 Eosinophils % 4.5 % (0-4.5) 11/27/18 17:09 Basophils % 1.0 % (0-2.0) 11/27/18 17:09 Nucleated RBC % 0 % (0-0) 11/27/18 17:09 Sodium 145 mmol/L (136-145) 11/28/18 07:25 Potassium 4.0 mmol/L (3.5-5.1) 11/28/18 07:25 Chloride 112 mmol/L (98-107) H 11/28/18 07:25 Carbon Dioxide 27 mmol/L (21-32) 11/28/18 07:25 Anion Gap 6 MMOL/L (8-16) L 11/28/18 07:25 BUN 23.2 mg/dL (7-18) H 11/28/18 07:25 Creatinine 1.1 mg/dL (0.55-1.3) 11/28/18 07:25 Est GFR (CKD-EPI)AfAm 56.08 11/28/18 07:25 Est GFR (CKD-EPI)NonAf 48.39 11/28/18 07:25 Random Glucose 155 mg/dL (74-106) H 11/28/18 07:25 Calcium 8.6 mg/dL (8.5-10.1) 11/28/18 07:25 Magnesium 2.1 mg/dL (1.8-2.4) 11/28/18 07:25 Total Bilirubin 0.5 mg/dL (0.2-1) 11/27/18 17:09 AST 42 U/L (15-37) H 11/27/18 17:09 ALT 58 U/L (13-61) 11/27/18 17:09 Alkaline Phosphatase 93 U/L (45-117) 11/27/18 17:09 Creatine Kinase 303 U/L (26-192) H 11/27/18 19:38 Creatine Kinase Index 0.5 % (0.0-5.0) 11/27/18 19:38 CK-MB (CK-2) 1.7 ng/mL (0.5-3.6) 11/27/18 19:38 Troponin I 0.02 ng/ml (0.00-0.05) 11/27/18 19:38 B-Natriuretic Peptide 1800.9 pg/ml (5-450) H 11/27/18 19:38 Total Protein 6.1 g/dl (6.4-8.2) L 11/27/18 17:09 Albumin 3.3 g/dl (3.4-5.0) L 11/27/18 17:09 ekg: sinus, LBBB tele: sr pvc's. echo 01/2017: nl lv size/fn. tds for rwma. rv not well seen. mod unruly. 1+ mr/ tr. rvsp 40-50. Mayra stress MPI 06/2012: small, mild reversible anterior wall defect c/w anterior ischemia vs variable breast attenuation artifact. 78 with h/o HTN, hl, pulm htn, known lbbb, diastolic hf on po lasix, copd/ chronic bronchitis (previously prescribed home O2 but doesn't use regularly), anxiety who p/w shortness of breath carbajal/acute diastolic hf exacerbation, COPD exacerbation - treating for COPD per primary - continue IV lasix - monitor Cr, lytes, daily weights - cont ARB, bb - repeat echo ordered htn - controlled on home regimen hl - con't statin
--- NOTE | 2018-11-28 15:07 | CON.PULM ---
Consult Consult Specialty:: PULM/CCM Referred by:: Hospitalist Reason for Consultation:: SOB - History of Present Illness Chief Complaint: SOB History of Present Illness: 78 F, COPD apparently due to second hand smoke exposure, on home O2 for almost 6 years (sees Dr Fraire). 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 URI symptoms with progressive SOB for the last 6 days. She took 3 days of Prednsione 60mg OD and a Zpack. Due to persistence of symptoms she was advised to come to the ER. No recent travel history. She works at [employer] so apparent many sick customers. - History Source History Provided By: Patient Limitations to Obtaining History: No Limitations - Past Medical History Cardio/Vascular: Yes: CHF, HTN, Hyperlipdemia Pulmonary: Yes: Bronchitis, COPD, O2 Dependent, Pneumonia. No: Cancer, Previously Intubated, Pulmonary Embolus, Pulmonary Fibrosis, Sleep Apnea - Past Surgical History Past Surgical History: Yes: None - Alcohol/Substance Use Hx Alcohol Use: No History of Substance Use: reports: None - Smoking History Smoking history: Never smoked - Social History ADL: Independent History of Recent Travel: No Home Medications - Allergies Allergies/Adverse Reactions: Allergies Allergy/AdvReac Type Severity Reaction Status Date / Time No Known Allergies Allergy Verified 11/27/18 16:39 - Home Medications Home Medications: Ambulatory Orders Atorvastatin Ca [Lipitor] 80 mg PO HS 02/12/15 Albuterol 0.083% Nebulizer Basilia [Ventolin 0.083% Nebulizer Soln -] 1 amp NEB Q4HPO #120 amp 02/21/15 Lorazepam 0.5 mg PO DAILY PRN 02/12/17 Albuterol Sulfate Inhaler - [Ventolin Hfa Inhaler -] 2 inh PO Q4H 11/28/18 Azithromycin 250 mg PO DAILY 11/28/18 Benzonatate [Tessalon Pearls -] 100 mg PO TID 11/28/18 Budesonide/Formeterol Fumarate [SYMBICORT 160/4.5mcg -] 2 inh PO BID 11/28/18 Cholecalciferol (Vitamin D3) [Vitamin D3 -] 1,000 unit PO DAILY 11/28/18 Furosemide 40 mg PO DAILY 11/28/18 Losartan Potassium 100 mg PO DAILY 11/28/18 Metoprolol Succinate 25 mg PO DAILY 11/28/18 Omeprazole/Sodium Bicarbonate [Omeprazole-Bicarb 20-1,680 Pkt] 1 each PO DAILY 11/28/18 Sertraline HCl 25 mg PO DAILY 11/28/18 Triamcinolone 0.1% Ointment [Aristocort 0.1% Ointment -] 1 applic TP DAILY 11/28 Review of Systems - Review of Systems Constitutional: reports: Malaise. denies: Chills, Fever, Night Sweats, Unintentional Wgt. Loss Eyes: reports: No Symptoms HENT: reports: No Symptoms Neck: reports: No Symptoms Cardiovascular: reports: Shortness of Breath. denies: Chest Pain, Edema, Palpitations Respiratory: reports: Cough, SOB, SOB on Exertion, Wheezing. denies: Hemoptysis , Orthopnea, PND, Snoring Gastrointestinal: reports: No Symptoms Genitourinary: reports: No Symptoms Breasts: reports: No Symptoms Reported Musculoskeletal: reports: No Symptoms Integumentary: reports: No Symptoms Neurological: reports: No Symptoms Endocrine: reports: No Symptoms Hematology/Lymphatic: reports: No Symptoms Psychiatric: reports: No Symptoms Physical Exam Vital Sings: Vital Signs Temperature 97.8 F 11/28/18 09:30 Pulse Rate 65 11/28/18 09:30 Respiratory Rate 16 11/28/18 09:30 Blood Pressure 154/77 11/28/18 09:30 O2 Sat by Pulse Oximetry (%) 95 11/28/18 09:30 Constitutional: Yes: Well Nourished, No Distress Eyes: Yes: Conjunctiva Clear, EOM Intact HENT: Yes: Atraumatic, Normocephalic Neck: Yes: Supple, Trachea Midline Cardiovascular: Yes: Regular Rate and Rhythm Respiratory: Yes: Cough, Diminished, On Nasal O2, Rhonchi, SOB, SOB on Exertion , Tachypnea, Wheezes. No: Accessory Muscle Use, Rales, Stridor ...Inspection: Yes: WNL ...Clubbing: No Gastrointestinal: Yes: Normal Bowel Sounds, Soft, Abdomen, Obese Renal/: Yes: WNL Musculoskeletal: Yes: WNL Extremities: Yes: WNL Edema: No Peripheral Pulses WNL: Yes Integumentary: Yes: WNL Neurological: Yes: WNL, Alert, Oriented ...Motor Strength: WNL Psychiatric: Yes: WNL, Alert, Oriented Labs: CBC, BMP 11/28/18 07:25 11/28/18 07:25 Imaging - Results Chest X-ray: Report Reviewed, Image Reviewed Cat Scan: Report Reviewed, Image Reviewed Problem List - Problems (1) COPD exacerbation Code(s): J44.1 - CHRONIC OBSTRUCTIVE PULMONARY DISEASE W (ACUTE) EXACERBATION (2) Anxiety Code(s): F41.9 - ANXIETY DISORDER, UNSPECIFIED (3) COPD (chronic obstructive pulmonary disease) Code(s): J44.9 - CHRONIC OBSTRUCTIVE PULMONARY DISEASE, UNSPECIFIED Qualifiers: COPD type: unspecified COPD Qualified Code(s): J44.9 - Chronic obstructive pulmonary disease, unspecified (4) Obesity Code(s): E66.9 - OBESITY, UNSPECIFIED Qualifiers: Obesity type: due to excess calories Obesity classification: adult class 2 (BMI 35 - 39.9) Serious obesity comorbidity presence: with serious comorbidity Body mass index: BMI 36.0-36.9 Qualified Code(s): E66.01 - Morbid (severe) obesity due to excess calories; Z68.36 - Body mass index (BMI) 36.0-36.9, adult (5) SOB (shortness of breath) Code(s): R06.02 - SHORTNESS OF BREATH Assessment/Plan IV Medrol O2 as needed BD TX standing and PRN Monitor off ABX: suspect viral illness, took a Zpack as an outpatient VTE prophylaxis No smoking Will need formal sleep workup as an outpatient Will follow Thank you. Dr Servin
[2018-11-28] MEDS ORDERED: VALSARTAN 80 MG TABLET (UD) ONE (20:55)
[2018-11-28] MEDS ORDERED: ATORVASTATIN CA 80 MG TABLET (FP) ONE (20:55)
[2018-11-28] MEDS ORDERED: HEPARIN NA (PORCINE) 5,000 UNITS/ML 1ML VIAL ONE (20:55)
[2018-11-28] MEDS ORDERED: ATORVASTATIN CA 80 MG TABLET (FP) PO SCH (22:00)
[2018-11-29] MEDS ORDERED: methylPREDNISolone NA SUCC 40 MG/1 ML VIAL ONE ×2 (01:27→08:36)
[2018-11-29] MEDS: methylPREDNISolone NA SUCC 40 MG/1 ML VIAL IVPUSH SCH ×3 (01:33→18:22)
[2018-11-29] MEDS ORDERED: HEPARIN NA (PORCINE) 5,000 UNITS/ML 1ML VIAL ONE (05:57)
[2018-11-29] MEDS ORDERED: FUROSEMIDE 40 MG/4 ML INJECTABLE VIAL ONE (05:57)
[2018-11-29] MEDS: FUROSEMIDE 40 MG/4 ML INJECTABLE VIAL IVPUSH SCH ×2 (06:04→14:22)
[2018-11-29] MEDS: HEPARIN NA (PORCINE) 5,000 UNITS/ML 1ML VIAL SQ SCH ×3 (06:04→21:49)
[2018-11-29] MEDS ORDERED: PT OWN MED DRAWER 7, Y5N ONE (08:30)
[2018-11-29] MEDS ORDERED: VALSARTAN 80 MG TABLET (UD) ONE (08:36)
[2018-11-29] MEDS ORDERED: ALBUTEROL SO4 2.5/IPRATROPIUM 0.5 INH SOL 3 ML VIAL.NEB. NEB ONE (08:39)
[2018-11-29] MEDS: ALBUTEROL SO4 2.5/IPRATROPIUM 0.5 INH SOL 3 ML VIAL.NEB. NEB SCH ×4 (09:01→21:11)
[2018-11-29] MEDS: metoPROLOL SUCCINATE 25 MG TAB.SR.24H (FP) PO SCH (09:01)
[2018-11-29] MEDS: VALSARTAN 80 MG TABLET (UD) PO SCH ×2 (09:01→21:49)
--- NOTE | 2018-11-29 10:31 | PN ---
Teaching Attending Note Name of Resident: Lambert White ATTENDING PHYSICIAN STATEMENT I saw and evaluated the patient. I reviewed the resident's note and discussed the case with the resident. I agree with the resident's findings and plan as documented. SUBJECTIVE: Patient is a 78yo f with PMhx of COPD and diastolic CHF presented with shortness of breath and productive cough. Patient is feeling better. OBJECTIVE: Vital Signs Temperature 97.3 F L 11/28/18 20:19 Pulse Rate 67 11/29/18 06:39 Respiratory Rate 18 11/29/18 06:39 Blood Pressure 165/64 11/29/18 06:39 O2 Sat by Pulse Oximetry (%) 96 11/29/18 06:39 GENERAL: The patient is awake, alert, and fully oriented, in no acute distress. HEAD: Normal with no signs of trauma. EYES: PERRL, extraocular movements intact, sclera anicteric, conjunctiva clear. ENT: Ears normal, oropharynx clear without exudates, moist mucous membranes. NECK: Trachea midline, full range of motion, supple. LUNGS: Breath sounds equal, clear to auscultation bilaterally, no wheezes, no crackles, no accessory muscle use. HEART: Regular rate and rhythm, S1, S2 without murmur, rub or gallop. ABDOMEN: Soft, NT,ND, normoactive bowel sounds, no guarding, no rebound, no hepatosplenomegaly, no masses. EXTREMITIES: 2+ pulses, warm, well-perfused, no edema. NEUROLOGICAL: Cranial nerves II through XII grossly intact. Normal speech, gait not observed. PSYCH: Normal mood, normal affect. SKIN: Warm, dry, normal turgor, no rashes or lesions noted WBC 7.1 K/mm3 (4.0-10.0) 11/28/18 07:25 RBC 3.71 M/mm3 (3.60-5.2) 11/28/18 07:25 Hgb 11.9 GM/dL (10.7-15.3) 11/28/18 07:25 Hct 35.2 % (32.4-45.2) 11/28/18 07:25 MCV 94.9 fl (80-96) 11/28/18 07:25 MCHC 33.8 g/dl (32.0-36.0) 11/28/18 07:25 RDW 13.1 % (11.6-15.6) 11/28/18 07:25 Plt Count 271 K/MM3 (134-434) 11/28/18 07:25 MPV 7.3 fl (7.5-11.1) L 11/28/18 07:25 CMP Sodium 145 mmol/L (136-145) 11/28/18 07:25 Potassium 4.0 mmol/L (3.5-5.1) 11/28/18 07:25 Chloride 112 mmol/L (98-107) H 11/28/18 07:25 Carbon Dioxide 27 mmol/L (21-32) 11/28/18 07:25 Anion Gap 6 MMOL/L (8-16) L 11/28/18 07:25 BUN 23.2 mg/dL (7-18) H 11/28/18 07:25 Creatinine 1.1 mg/dL (0.55-1.3) 11/28/18 07:25 Random Glucose 155 mg/dL (74-106) H 11/28/18 07:25 Calcium 8.6 mg/dL (8.5-10.1) 11/28/18 07:25 Total Bilirubin 0.5 mg/dL (0.2-1) 11/27/18 17:09 AST 42 U/L (15-37) H 11/27/18 17:09 ALT 58 U/L (13-61) 11/27/18 17:09 Alkaline Phosphatase 93 U/L (45-117) 11/27/18 17:09 Total Protein 6.1 g/dl (6.4-8.2) L 11/27/18 17:09 Albumin 3.3 g/dl (3.4-5.0) L 11/27/18 17:09 CARDIAC ENZYMES Creatine Kinase 303 U/L (26-192) H 11/27/18 19:38 Troponin I 0.02 ng/ml (0.00-0.05) 11/27/18 19:38 Current Medications Generic Name Dose Route Start Last Admin Trade Name Freq PRN Reason Stop Dose Admin Albuterol Sulfate 1 amp 11/28/18 15:11 Ventolin 0.083% Nebulizer Soln - NEB Q4H PRN SHORT OF BREATH/WHEEZING Albuterol/Ipratropium 1 amp 11/28/18 00:15 11/29/18 09:01 Duoneb - NEB 1 amp RQID RAGHU Administration Atorvastatin Calcium 80 mg 11/28/18 22:00 11/28/18 21:20 Lipitor - PO 80 mg HS RAGHU Administration Furosemide 40 mg 11/28/18 06:00 11/29/18 06:04 Lasix Injection - IVPUSH 40 mg BID@0600,1400 RAGHU Administration Heparin Sodium (Porcine) 5,000 unit 11/28/18 06:00 11/29/18 06:04 Heparin - SQ 5,000 unit TID RAGHU Administration Methylprednisolone Sodium Succinate 60 mg 11/28/18 10:15 11/29/18 09:01 Solu-Medrol - IVPUSH 60 mg Q8H-IV RAGHU Administration Metoprolol Succinate 25 mg 11/28/18 10:00 11/29/18 09:01 Toprol Xl - PO 25 mg DAILY RAGHU Administration Valsartan 80 mg 11/28/18 00:15 11/29/18 09:01 Diovan - PO 80 mg BID RAGHU Administration Home Medications Medication Instructions Recorded Atorvastatin Ca [Lipitor] 80 mg PO HS 02/12/15 Albuterol 0.083% Nebulizer Basilia 1 amp NEB Q4HPO #120 amp 02/21/15 [Ventolin 0.083% Nebulizer Soln -] Lorazepam 0.5 mg PO DAILY PRN 02/12/17 Albuterol Sulfate Inhaler - 2 inh PO Q4H 11/28/18 [Ventolin Hfa Inhaler -] Azithromycin 250 mg PO DAILY 11/28/18 Benzonatate [Tessalon Pearls -] 100 mg PO TID 11/28/18 Budesonide/Formeterol Fumarate 2 inh PO BID 11/28/18 [SYMBICORT 160/4.5mcg -] Cholecalciferol (Vitamin D3) 1,000 unit PO DAILY 11/28/18 [Vitamin D3 -] Furosemide 40 mg PO DAILY 11/28/18 Losartan Potassium 100 mg PO DAILY 11/28/18 Metoprolol Succinate 25 mg PO DAILY 11/28/18 Omeprazole/Sodium Bicarbonate 1 each PO DAILY 11/28/18 [Omeprazole-Bicarb 20-1,680 Pkt] Sertraline HCl 25 mg PO DAILY 11/28/18 Triamcinolone 0.1% Ointment 1 applic TP DAILY 11/28/18 [Aristocort 0.1% Ointment -] CXR: large heart, sclerotic knob, prominent mauricio and scarring or chronic atelectasis in the midlung field. Assessment and plan: Patient is a 78 year old female with a past medical history of COPD and D.CHF, hypertension, hyperlipidemia presented to ED. c/o shortness of breath and productive cough. #Acute Hypoxic Respiratory Failure/due to copd exacerbation/chF: continue with Solu Medrol, lasix #COPD : on solu medrol continue #CHF exacerbation (BNP 1800)continue Lasix #Hypertension: continue metoprolol 25, valsartan 80 BID #Hyperlipidemia continue atorvastatin 80 DVT Prophylaxis: SCDs , heparin 5000 subq tid
--- NOTE | 2018-11-29 10:48 | PN ---
Physical Exam: SUBJECTIVE: Patient seen and examined at bedside. breathing significantly improved since admission. Reports dry rash on bottom of foot that is pruritic OBJECTIVE: Vital Signs Period Temp Pulse Resp BP Sys/Ambrose Pulse Ox Last 24 Hr 97.3 F-98.5 F 66-79 17-18 141-165/60-64 96-98 GENERAL: A&Ox3, no acute distress EYES: PERRLA, EOMI LUNGS: bilateral wheezing noted on exam, crackles auscultated at the bases HEART: RRR, no murmurs ABDOMEN: Soft, nontender, BS present EXTREMITIES: 2+ pulses, 1+ edema bilaterally Active Medications Generic Name Dose Route Start Last Admin Trade Name Freq PRN Reason Stop Dose Admin Albuterol Sulfate 1 amp 11/28/18 15:11 Ventolin 0.083% Nebulizer Soln - NEB Q4H PRN SHORT OF BREATH/WHEEZING Albuterol/Ipratropium 1 amp 11/28/18 00:15 11/29/18 09:01 Duoneb - NEB 1 amp RQID RAGHU Administration Atorvastatin Calcium 80 mg 11/28/18 22:00 11/28/18 21:20 Lipitor - PO 80 mg HS RAGHU Administration Furosemide 40 mg 11/28/18 06:00 11/29/18 06:04 Lasix Injection - IVPUSH 40 mg BID@0600,1400 RAGHU Administration Heparin Sodium (Porcine) 5,000 unit 11/28/18 06:00 11/29/18 06:04 Heparin - SQ 5,000 unit TID RAGHU Administration Methylprednisolone Sodium Succinate 60 mg 11/28/18 10:15 11/29/18 09:01 Solu-Medrol - IVPUSH 60 mg Q8H-IV RAGHU Administration Metoprolol Succinate 25 mg 11/28/18 10:00 11/29/18 09:01 Toprol Xl - PO 25 mg DAILY RAGHU Administration Valsartan 80 mg 11/28/18 00:15 11/29/18 09:01 Diovan - PO 80 mg BID RAGHU Administration ASSESSMENT/PLAN: 78 year old female with a past medical history of COPD and heart failure with preserved ejection fraction, hypertension, hyperlipidemia arrived to the emergency room complaining of shortness of breath and productive cough #Acute Hypoxic Respiratory Failure: 2/2 combination of COPD and CHF exacerbation (BNP 1800), will treat for both -decrease medrol to 40q8h -duonebs q8h -albuterol PRN -decrease lasix to 40 PO BID -tele monitoring -accurate Is/Os -daily weights -cardiology consulted -pulm consulted #Hypertension: nor currently hypertensive -continue matoprolol 25 -continue valsartan 80 BID #Hyperlipidemia -continue atorvastatin 80 #FEN -no standing fluids #Prophylaxis -SCDs #Disposition -can likely downgrade to med surg -> anticipate dc in 1-2 days Visit type - Emergency Visit Emergency Visit: No - New Patient This patient is new to me today: No - Critical Care Critical Care patient: No ATTENDING PHYSICIAN STATEMENT I saw and evaluated the patient. I reviewed the resident's note and discussed the case with the resident. I agree with the resident's findings and plan as documented. SUBJECTIVE: OBJECTIVE: ASSESSMENT AND PLAN:
[2018-11-29] MEDS ORDERED: methylPREDNISolone NA SUCC 40 MG/1 ML VIAL IVPUSH SCH (11:02)
--- NOTE | 2018-11-29 11:56 | PN ---
Progress Note (short form) - Note Progress Note: s: sob improving, no chest pain, palps, dizziness, Current Medications Albuterol Sulfate (Ventolin 0.083% Nebulizer Soln -) 1 amp NEB Q4H PRN PRN Reason: SHORT OF BREATH/WHEEZING Albuterol/Ipratropium (Duoneb -) 1 amp NEB RQID [facility] Last Admin: 11/29/18 09:01 Dose: 1 amp Atorvastatin Calcium (Lipitor -) 80 mg PO HS [facility] Last Admin: 11/28/18 21:20 Dose: 80 mg Clotrimazole (Lotrisone Cream (Small Tube)) 1 applic TP BID [facility] Furosemide (Lasix Injection -) 40 mg IVPUSH BID@0600,1400 [facility] Last Admin: 11/29/18 06:04 Dose: 40 mg Heparin Sodium (Porcine) (Heparin -) 5,000 unit SQ TID [facility] Last Admin: 11/29/18 06:04 Dose: 5,000 unit Methylprednisolone Sodium Succinate (Solu-Medrol -) 40 mg IVPUSH Q8H-IV [facility] Metoprolol Succinate (Toprol Xl -) 25 mg PO DAILY [facility] Last Admin: 11/29/18 09:01 Dose: 25 mg Valsartan (Diovan -) 80 mg PO BID [facility] Last Admin: 11/29/18 09:01 Dose: 80 mg Vital Signs Period Temp Pulse Resp BP Sys/Ambrose Pulse Ox Last 24 Hr 97.3 F-98.5 F 66-79 17-18 141-165/60-64 96-98 nad, calm +JVD rrr nl s1, s2 2/6 sys murmur at lsb and apex CTAB, dec breath sounds at bases, nl effort + bs soft nt nd ext 1+ edema gina lower ext aaox3 no jaundice, diaphoresis no carotid bruits not agitated ekg: sinus, LBBB tele: sr pvc's. echo 01/2017: nl lv size/fn. tds for rwma. rv not well seen. mod unruly. 1+ mr/ tr. rvsp 40-50. Mayra stress MPI 06/2012: small, mild reversible anterior wall defect c/w anterior ischemia vs variable breast attenuation artifact. 78 with h/o HTN, hl, pulm htn, known lbbb, diastolic hf on po lasix, copd/ chronic bronchitis (previously prescribed home O2 but doesn't use regularly), anxiety who p/w shortness of breath carbajal/acute diastolic hf exacerbation, COPD exacerbation - treating for COPD per primary - continue IV lasix - monitor Cr, lytes, daily weights - cont ARB, bb - repeat echo ordered htn - cont on home regimen hl - con't statin dc tele
--- NOTE | 2018-11-29 14:10 | PN ---
Progress Note (short form) - Note Progress Note: Seen in the ER. Breathing feels better today. Less SOB. No CP. Intake & Output 11/26/18 11/27/18 11/28/18 11/29/18 23:59 23:59 23:59 23:59 Intake Total 480 Balance 480 Weight 189 lb Last Vital Signs Temp Pulse Resp BP Pulse Ox 97.3 F L 67 18 165/64 96 11/28/18 20:19 11/29/18 06:39 11/29/18 06:39 11/29/18 06:39 11/29/18 06:39 Active Medications Albuterol Sulfate (Ventolin 0.083% Nebulizer Soln -) 1 amp NEB Q4H PRN PRN Reason: SHORT OF BREATH/WHEEZING Albuterol/Ipratropium (Duoneb -) 1 amp NEB RQID [facility] Last Admin: 11/29/18 09:01 Dose: 1 amp Atorvastatin Calcium (Lipitor -) 80 mg PO HS [facility] Last Admin: 11/28/18 21:20 Dose: 80 mg Clotrimazole (Lotrisone Cream (Small Tube)) 1 applic TP BID [facility] Furosemide (Lasix Injection -) 40 mg IVPUSH BID@0600,1400 [facility] Last Admin: 11/29/18 06:04 Dose: 40 mg Heparin Sodium (Porcine) (Heparin -) 5,000 unit SQ TID [facility] Last Admin: 11/29/18 06:04 Dose: 5,000 unit Methylprednisolone Sodium Succinate (Solu-Medrol -) 40 mg IVPUSH Q8H-IV [facility] Metoprolol Succinate (Toprol Xl -) 25 mg PO DAILY [facility] Last Admin: 11/29/18 09:01 Dose: 25 mg Valsartan (Diovan -) 80 mg PO BID [facility] Last Admin: 11/29/18 09:01 Dose: 80 mg Constitutional: Yes: Well Nourished, No Distress Eyes: Yes: Conjunctiva Clear, EOM Intact HENT: Yes: Atraumatic, Normocephalic Neck: Yes: Supple, Trachea Midline Cardiovascular: Yes: Regular Rate and Rhythm Respiratory: Yes: Cough, Diminished, On Nasal O2, scattered rhonchi, Less SOB, less expiratory wheezes. No: Accessory Muscle Use, Rales, Stridor ...Inspection: Yes: WNL ...Clubbing: No Gastrointestinal: Yes: Normal Bowel Sounds, Soft, Abdomen, Obese Renal/: Yes: WNL Musculoskeletal: Yes: WNL Extremities: Yes: WNL Edema: No Peripheral Pulses WNL: Yes Integumentary: Yes: WNL Neurological: Yes: WNL, Alert, Oriented ...Motor Strength: WNL Psychiatric: Yes: WNL, Alert, Oriented Labs: Problem List - Problems (1) COPD exacerbation Code(s): J44.1 - CHRONIC OBSTRUCTIVE PULMONARY DISEASE W (ACUTE) EXACERBATION (2) Anxiety Code(s): F41.9 - ANXIETY DISORDER, UNSPECIFIED (3) COPD (chronic obstructive pulmonary disease) Code(s): J44.9 - CHRONIC OBSTRUCTIVE PULMONARY DISEASE, UNSPECIFIED Qualifiers: COPD type: unspecified COPD Qualified Code(s): J44.9 - Chronic obstructive pulmonary disease, unspecified (4) Obesity Code(s): E66.9 - OBESITY, UNSPECIFIED Qualifiers: Obesity type: due to excess calories Obesity classification: adult class 2 (BMI 35 - 39.9) Serious obesity comorbidity presence: with serious comorbidity Body mass index: BMI 36.0-36.9 Qualified Code(s): E66.01 - Morbid (severe) obesity due to excess calories; Z68.36 - Body mass index (BMI) 36.0-36.9, adult (5) SOB (shortness of breath) Code(s): R06.02 - SHORTNESS OF BREATH Assessment/Plan IV Medrol, will likely change to Prednisone in AM if stable/improved. O2 as needed BD TX standing and PRN Monitor off ABX: suspect viral illness, took a Zpack as an outpatient VTE prophylaxis No smoking Will need formal sleep workup as an outpatient Dr Servin Problem List - Problems (1) COPD exacerbation Code(s): J44.1 - CHRONIC OBSTRUCTIVE PULMONARY DISEASE W (ACUTE) EXACERBATION (2) Anxiety Code(s): F41.9 - ANXIETY DISORDER, UNSPECIFIED (3) COPD (chronic obstructive pulmonary disease) Code(s): J44.9 - CHRONIC OBSTRUCTIVE PULMONARY DISEASE, UNSPECIFIED Qualifiers: COPD type: unspecified COPD Qualified Code(s): J44.9 - Chronic obstructive pulmonary disease, unspecified (4) Obesity Code(s): E66.9 - OBESITY, UNSPECIFIED Qualifiers: Obesity type: due to excess calories Obesity classification: adult class 2 (BMI 35 - 39.9) Serious obesity comorbidity presence: with serious comorbidity Body mass index: BMI 36.0-36.9 Qualified Code(s): E66.01 - Morbid (severe) obesity due to excess calories; Z68.36 - Body mass index (BMI) 36.0-36.9, adult (5) SOB (shortness of breath) Code(s): R06.02 - SHORTNESS OF BREATH
[2018-11-29 17:57] VITALS: BMI 33.3
[2018-11-29] MEDS: FUROSEMIDE 40 MG TABLET (FP) PO SCH (18:22)
[2018-11-29] MEDS: ALBUTEROL SO4 0.083% IH SOL 2.5 MG/3 ML VIAL.NEB. NEB PRN (18:24)
[2018-11-29] MEDS: ATORVASTATIN CA 80 MG TABLET (FP) PO SCH (21:49)
[2018-11-29] MEDS: CLOTRIMAZOLE/BETAMET DIPROP 15 GM TUBE TP SCH (21:50)
[2018-11-29] MEDS ORDERED: CLOTRIMAZOLE/BETAMET DIPROP 15 GM TUBE TP SCH (22:00)
[2018-11-30] MEDS: methylPREDNISolone NA SUCC 40 MG/1 ML VIAL IVPUSH SCH ×4 (01:45→22:17)
[2018-11-30] MEDS: HEPARIN NA (PORCINE) 5,000 UNITS/ML 1ML VIAL SQ SCH ×3 (06:12→21:40)
[2018-11-30] MEDS: FUROSEMIDE 40 MG TABLET (FP) PO SCH ×2 (06:12→14:15)
[2018-11-30] MEDS: ALBUTEROL SO4 2.5/IPRATROPIUM 0.5 INH SOL 3 ML VIAL.NEB. NEB SCH ×4 (07:10→20:35)
[2018-11-30 09:14] LABS: HEMATOCRIT 37.5 % (32.4-45.2); HEMOGLOBIN 12.2 GM/dL (10.7-15.3); LYMPH % 5.7 % (8-40); MCH 31.2 pg (25.7-33.7); MCHC 32.5 g/dl (32.0-36.0); MEAN CELL VOLUME 96.2 fl (80-96); MEAN PLT VOLUME 7.5 fl (7.5-11.1); MONO % 2.1 % (3.8-10.2); NEUT % 92.2 % (42.8-82.8); PLATELET COUNT 308 K/MM3 (134-434); RDW 13.2 % (11.6-15.6)
--- NOTE | 2018-11-30 09:29 | PN ---
Teaching Attending Note Name of Resident: Dea Joseph ATTENDING PHYSICIAN STATEMENT I saw and evaluated the patient. I reviewed the resident's note and discussed the case with the resident. I agree with the resident's findings and plan as documented. SUBJECTIVE: Patient is feeling better with no acute distress. OBJECTIVE: Vital Signs Temperature 97.9 F 11/30/18 06:00 Pulse Rate 76 11/30/18 06:00 Respiratory Rate 20 11/30/18 06:00 Blood Pressure 158/65 11/30/18 06:00 O2 Sat by Pulse Oximetry (%) 96 11/29/18 21:00 GENERAL: The patient is awake, alert, and fully oriented, in no acute distress. HEAD: Normal with no signs of trauma. EYES: PERRL, extraocular movements intact, sclera anicteric, conjunctiva clear. ENT: Ears normal, oropharynx clear without exudates, moist mucous membranes. NECK: Trachea midline, full range of motion, supple. LUNGS: decreased Breath sounds bl, positive for rhonchi, no wheezes, no crackles, no accessory muscle use. HEART: RRR, S1, S2 positive, FREDA 2/6 murmur, no rub or gallop. ABDOMEN: Soft, NT,ND, normoactive bowel sounds, no guarding, no rebound, no hepatosplenomegaly, no masses. EXTREMITIES: 2+ pulses, warm, well-perfused, no edema. NEUROLOGICAL: Cranial nerves II through XII grossly intact. Normal speech, gait not observed. PSYCH: Normal mood, normal affect. SKIN: Warm, dry, normal turgor, no rashes or lesions noted CBCD WBC 12.0 K/mm3 (4.0-10.0) H 11/30/18 08:41 RBC 3.90 M/mm3 (3.60-5.2) 11/30/18 08:41 Hgb 12.2 GM/dL (10.7-15.3) 11/30/18 08:41 Hct 37.5 % (32.4-45.2) 11/30/18 08:41 MCV 96.2 fl (80-96) H 11/30/18 08:41 MCHC 32.5 g/dl (32.0-36.0) 11/30/18 08:41 RDW 13.2 % (11.6-15.6) 11/30/18 08:41 Plt Count 308 K/MM3 (134-434) 11/30/18 08:41 MPV 7.5 fl (7.5-11.1) 11/30/18 08:41 CMP Sodium 145 mmol/L (136-145) 11/28/18 07:25 Potassium 4.0 mmol/L (3.5-5.1) 11/28/18 07:25 Chloride 112 mmol/L (98-107) H 11/28/18 07:25 Carbon Dioxide 27 mmol/L (21-32) 11/28/18 07:25 Anion Gap 6 MMOL/L (8-16) L 11/28/18 07:25 BUN 23.2 mg/dL (7-18) H 11/28/18 07:25 Creatinine 1.1 mg/dL (0.55-1.3) 11/28/18 07:25 Random Glucose 155 mg/dL (74-106) H 11/28/18 07:25 Calcium 8.6 mg/dL (8.5-10.1) 11/28/18 07:25 Total Bilirubin 0.5 mg/dL (0.2-1) 11/27/18 17:09 AST 42 U/L (15-37) H 11/27/18 17:09 ALT 58 U/L (13-61) 11/27/18 17:09 Alkaline Phosphatase 93 U/L (45-117) 11/27/18 17:09 Total Protein 6.1 g/dl (6.4-8.2) L 11/27/18 17:09 Albumin 3.3 g/dl (3.4-5.0) L 11/27/18 17:09 CARDIAC ENZYMES Creatine Kinase 303 U/L (26-192) H 11/27/18 19:38 Troponin I 0.02 ng/ml (0.00-0.05) 11/27/18 19:38 Current Medications Generic Name Dose Route Start Last Admin Trade Name Freq PRN Reason Stop Dose Admin Albuterol Sulfate 1 amp 11/29/18 17:10 11/29/18 18:24 Ventolin 0.083% Nebulizer Soln - NEB 1 amp Q4H PRN Administration SHORT OF BREATH/WHEEZING Albuterol/Ipratropium 1 amp 11/29/18 20:00 11/30/18 07:10 Duoneb - NEB 1 amp RQID RAGHU Administration Atorvastatin Calcium 80 mg 11/29/18 22:00 11/29/18 21:49 Lipitor - PO 80 mg HS RAGHU Administration Clotrimazole 1 applic 11/29/18 22:00 11/29/18 21:50 Lotrisone Cream (Small Tube) TP 1 applic BID RAGHU Administration Furosemide 40 mg 11/29/18 17:10 11/30/18 06:12 Lasix - PO 40 mg BID@0600,1400 RAGHU Administration Heparin Sodium (Porcine) 5,000 unit 11/29/18 22:00 11/30/18 06:12 Heparin - SQ 5,000 unit TID RAGHU Administration Methylprednisolone Sodium Succinate 40 mg 11/29/18 18:00 11/30/18 01:45 Solu-Medrol - IVPUSH 40 mg Q8H-IV RAGHU Administration Metoprolol Succinate 25 mg 11/30/18 10:00 Toprol Xl - PO DAILY RAGHU Valsartan 80 mg 11/29/18 22:00 11/29/18 21:49 Diovan - PO 80 mg BID RAGHU Administration Home Medications Medication Instructions Recorded Atorvastatin Ca [Lipitor] 80 mg PO HS 02/12/15 Albuterol 0.083% Nebulizer Basilia 1 amp NEB Q4HPO #120 amp 02/21/15 [Ventolin 0.083% Nebulizer Soln -] Lorazepam 0.5 mg PO DAILY PRN 02/12/17 Albuterol Sulfate Inhaler - 2 inh PO Q4H 11/28/18 [Ventolin Hfa Inhaler -] Azithromycin 250 mg PO DAILY 11/28/18 Benzonatate [Tessalon Pearls -] 100 mg PO TID 11/28/18 Budesonide/Formeterol Fumarate 2 inh PO BID 11/28/18 [SYMBICORT 160/4.5mcg -] Cholecalciferol (Vitamin D3) 1,000 unit PO DAILY 11/28/18 [Vitamin D3 -] Furosemide 40 mg PO DAILY 11/28/18 Losartan Potassium 100 mg PO DAILY 11/28/18 Metoprolol Succinate 25 mg PO DAILY 11/28/18 Omeprazole/Sodium Bicarbonate 1 each PO DAILY 11/28/18 [Omeprazole-Bicarb 20-1,680 Pkt] Sertraline HCl 25 mg PO DAILY 11/28/18 Triamcinolone 0.1% Ointment 1 applic TP DAILY 11/28/18 [Aristocort 0.1% Ointment -] CXR: large heart, sclerotic knob, prominent mauricio and scarring or chronic atelectasis in the midlung field. Assessment and plan: Patient is a 78 year old female with a past medical history of COPD and D.CHF, hypertension, hyperlipidemia presented to ED. c/o shortness of breath and productive cough. #Acute Hypoxic Respiratory Failure/due to copd exacerbation/chF: continue with Solu Medrol, lasix #COPD : on solu medrol continue #CHF exacerbation (BNP 1800)continue Lasix #Hypertension: continue metoprolol 25, valsartan 80 BID #Hyperlipidemia continue atorvastatin 80 DVT Prophylaxis: SCDs , heparin 5000 subq tid possible dc in am if stable
[2018-11-30 09:44] LABS: BLOOD UREA NITROGEN 35.1 mg/dL (7-18); CALCIUM 8.6 mg/dL (8.5-10.1); CREATININE 1.1 mg/dL (0.55-1.3); POTASSIUM 3.8 mmol/L (3.5-5.1)
[2018-11-30] MEDS: CLOTRIMAZOLE/BETAMET DIPROP 15 GM TUBE TP SCH ×2 (10:26→22:17)
[2018-11-30] MEDS: VALSARTAN 80 MG TABLET (UD) PO SCH ×2 (10:27→21:40)
[2018-11-30] MEDS: metoPROLOL SUCCINATE 25 MG TAB.SR.24H (FP) PO SCH (10:27)
--- NOTE | 2018-11-30 10:50 | PN ---
Progress Note (short form) - Note Progress Note: Breathing feels better today. Less SOB. Feels "shaky" and like she is retaining fluid. No CP. Intake & Output 11/27/18 11/28/18 11/29/18 11/30/18 23:59 23:59 23:59 23:59 Intake Total 480 1100 250 Balance 480 1100 250 Weight 189 lb 188 lb 186 lb Last Vital Signs Temp Pulse Resp BP Pulse Ox 97.9 F 76 20 158/65 96 11/30/18 06:00 11/30/18 06:00 11/30/18 06:00 11/30/18 06:00 11/29/18 21:00 Active Medications Albuterol Sulfate (Ventolin 0.083% Nebulizer Soln -) 1 amp NEB Q4H PRN PRN Reason: SHORT OF BREATH/WHEEZING Last Admin: 11/29/18 18:24 Dose: 1 amp Albuterol/Ipratropium (Duoneb -) 1 amp NEB RQID [facility] Last Admin: 11/30/18 07:10 Dose: 1 amp Atorvastatin Calcium (Lipitor -) 80 mg PO HS [facility] Last Admin: 11/29/18 21:49 Dose: 80 mg Clotrimazole (Lotrisone Cream (Small Tube)) 1 applic TP BID [facility] Last Admin: 11/30/18 10:26 Dose: 1 applic Furosemide (Lasix -) 40 mg PO BID@0600,1400 [facility] Last Admin: 11/30/18 06:12 Dose: 40 mg Heparin Sodium (Porcine) (Heparin -) 5,000 unit SQ TID [facility] Last Admin: 11/30/18 06:12 Dose: 5,000 unit Methylprednisolone Sodium Succinate (Solu-Medrol -) 30 mg IVPUSH Q12H [facility] Metoprolol Succinate (Toprol Xl -) 25 mg PO DAILY [facility] Last Admin: 11/30/18 10:27 Dose: 25 mg Valsartan (Diovan -) 80 mg PO BID [facility] Last Admin: 11/30/18 10:27 Dose: 80 mg Constitutional: Yes: Well Nourished, No Distress Eyes: Yes: Conjunctiva Clear, EOM Intact HENT: Yes: Atraumatic, Normocephalic Neck: Yes: Supple, Trachea Midline Cardiovascular: Yes: Regular Rate and Rhythm Respiratory: Yes: Cough, Diminished, On Nasal O2, scattered rhonchi, Less SOB, less expiratory wheezes. No: Accessory Muscle Use, Rales, Stridor ...Inspection: Yes: WNL ...Clubbing: No Gastrointestinal: Yes: Normal Bowel Sounds, Soft, Abdomen, Obese Renal/: Yes: WNL Musculoskeletal: Yes: WNL Extremities: Yes: WNL Edema: No Peripheral Pulses WNL: Yes Integumentary: Yes: WNL Neurological: Yes: WNL, Alert, Oriented ...Motor Strength: WNL Psychiatric: Yes: WNL, Alert, Oriented Labs: Laboratory Results - last 24 hr 11/30/18 11/30/18 08:41 08:41 WBC 12.0 H RBC 3.90 Hgb 12.2 Hct 37.5 MCV 96.2 H MCH 31.2 MCHC 32.5 RDW 13.2 Plt Count 308 MPV 7.5 Absolute Neuts (auto) 11.1 H Neutrophils % 92.2 H D Lymphocytes % 5.7 L D Monocytes % 2.1 L Eosinophils % 0.0 D Basophils % 0.0 Nucleated RBC % 0 Sodium 141 Potassium 3.8 Chloride 103 Carbon Dioxide 30 Anion Gap 9 BUN 35.1 H Creatinine 1.1 Est GFR (CKD-EPI)AfAm 56.08 Est GFR (CKD-EPI)NonAf 48.39 Random Glucose 233 H Calcium 8.6 Problem List - Problems (1) COPD exacerbation Code(s): J44.1 - CHRONIC OBSTRUCTIVE PULMONARY DISEASE W (ACUTE) EXACERBATION (2) Anxiety Code(s): F41.9 - ANXIETY DISORDER, UNSPECIFIED (3) COPD (chronic obstructive pulmonary disease) Code(s): J44.9 - CHRONIC OBSTRUCTIVE PULMONARY DISEASE, UNSPECIFIED Qualifiers: COPD type: unspecified COPD Qualified Code(s): J44.9 - Chronic obstructive pulmonary disease, unspecified (4) Obesity Code(s): E66.9 - OBESITY, UNSPECIFIED Qualifiers: Obesity type: due to excess calories Obesity classification: adult class 2 (BMI 35 - 39.9) Serious obesity comorbidity presence: with serious comorbidity Body mass index: BMI 36.0-36.9 Qualified Code(s): E66.01 - Morbid (severe) obesity due to excess calories; Z68.36 - Body mass index (BMI) 36.0-36.9, adult (5) SOB (shortness of breath) Code(s): R06.02 - SHORTNESS OF BREATH Assessment/Plan Decrease IV Medrol, can likely change to Prednisone in AM if stable/improved. O2 as needed BD TX standing and PRN Monitor off ABX: suspect viral illness, took a Zpack as an outpatient VTE prophylaxis No smoking Will need formal sleep workup as an outpatient Dr Servin Problem List - Problems (1) COPD exacerbation Code(s): J44.1 - CHRONIC OBSTRUCTIVE PULMONARY DISEASE W (ACUTE) EXACERBATION (2) Anxiety Code(s): F41.9 - ANXIETY DISORDER, UNSPECIFIED (3) COPD (chronic obstructive pulmonary disease) Code(s): J44.9 - CHRONIC OBSTRUCTIVE PULMONARY DISEASE, UNSPECIFIED Qualifiers: COPD type: unspecified COPD Qualified Code(s): J44.9 - Chronic obstructive pulmonary disease, unspecified (4) Obesity Code(s): E66.9 - OBESITY, UNSPECIFIED Qualifiers: Obesity type: due to excess calories Obesity classification: adult class 2 (BMI 35 - 39.9) Serious obesity comorbidity presence: with serious comorbidity Body mass index: BMI 36.0-36.9 Qualified Code(s): E66.01 - Morbid (severe) obesity due to excess calories; Z68.36 - Body mass index (BMI) 36.0-36.9, adult (5) SOB (shortness of breath) Code(s): R06.02 - SHORTNESS OF BREATH
[2018-11-30 11:31] LABS: ANISOCYTOSIS 1+; MACROCYTOSIS 1+; PLATELET ESTIMATE NORMAL
--- NOTE | 2018-11-30 13:41 | PN ---
Physical Exam: SUBJECTIVE: Patient seen and examined. pt was sitting at bedside with nebulizer treatment. OBJECTIVE: Vital Signs Period Temp Pulse Resp BP Sys/Ambrose Pulse Ox Last 24 Hr 97.9 F-98.9 F 68-76 17-20 139-160/54-80 96-97 GENERAL: The patient is awake, alert, and fully oriented, in no acute distress. HEAD: Normal with no signs of trauma. EYES: PERRL, extraocular movements intact, sclera anicteric, conjunctiva clear. No ptosis. ENT: Ears normal, nares patent, oropharynx clear without exudates, moist mucous membranes. NECK: Trachea midline, full range of motion, supple. LUNGS: Breath sounds clear to auscultation bilaterally decreased breath sound in left lung field, no wheezes, no crackles, no accessory muscle use. HEART: Regular rate and rhythm, S1, S2 without murmur, rub or gallop. ABDOMEN: Soft, nontender, nondistended, normoactive bowel sounds, no guarding, no rebound, no hepatosplenomegaly, no masses. EXTREMITIES: 2+ pulses, warm, well-perfused, no edema. PSYCH: Normal mood, normal affect. SKIN: Warm, dry, normal turgor, seborrheic keratosis Laboratory Results - last 24 hr 11/30/18 11/30/18 08:41 08:41 WBC 12.0 H RBC 3.90 Hgb 12.2 Hct 37.5 MCV 96.2 H MCH 31.2 MCHC 32.5 RDW 13.2 Plt Count 308 MPV 7.5 Absolute Neuts (auto) 11.1 H Neutrophils % 92.2 H D Neutrophils % (Manual) 88.8 H Band Neutrophils % 0.0 Lymphocytes % 5.7 L D Lymphocytes % (Manual) 7.1 L Monocytes % 2.1 L Monocytes % (Manual) 4 Eosinophils % 0.0 D Eosinophils % (Manual) 0.0 Basophils % 0.0 Basophils % (Manual) 0.0 Myelocytes % (Man) 0 Promyelocytes % (Man) 0 Blast Cells % (Manual) 0 Nucleated RBC % 0 Metamyelocytes 0 Hypochromia 0 Platelet Estimate Normal Polychromasia 0 Poikilocytosis 0 Anisocytosis 1+ Microcytosis 0 Macrocytosis 1+ Sodium 141 Potassium 3.8 Chloride 103 Carbon Dioxide 30 Anion Gap 9 BUN 35.1 H Creatinine 1.1 Est GFR (CKD-EPI)AfAm 56.08 Est GFR (CKD-EPI)NonAf 48.39 Random Glucose 233 H Calcium 8.6 Active Medications Generic Name Dose Route Start Last Admin Trade Name Freq PRN Reason Stop Dose Admin Albuterol Sulfate 1 amp 11/29/18 17:10 11/29/18 18:24 Ventolin 0.083% Nebulizer Soln - NEB 1 amp Q4H PRN Administration SHORT OF BREATH/WHEEZING Albuterol/Ipratropium 1 amp 11/29/18 20:00 11/30/18 11:40 Duoneb - NEB 1 amp RQID RAGHU Administration Atorvastatin Calcium 80 mg 11/29/18 22:00 11/29/18 21:49 Lipitor - PO 80 mg HS RAGHU Administration Clotrimazole 1 applic 11/29/18 22:00 11/30/18 10:26 Lotrisone Cream (Small Tube) TP 1 applic BID RAGHU Administration Furosemide 40 mg 11/29/18 17:10 11/30/18 06:12 Lasix - PO 40 mg BID@0600,1400 RAGHU Administration Heparin Sodium (Porcine) 5,000 unit 11/29/18 22:00 11/30/18 06:12 Heparin - SQ 5,000 unit TID RAGHU Administration Methylprednisolone Sodium Succinate 30 mg 11/30/18 11:00 11/30/18 12:27 Solu-Medrol - IVPUSH Not Given Q12H RAGHU Metoprolol Succinate 25 mg 11/30/18 10:00 11/30/18 10:27 Toprol Xl - PO 25 mg DAILY RAGHU Administration Valsartan 80 mg 11/29/18 22:00 11/30/18 10:27 Diovan - PO 80 mg BID RAGHU Administration ASSESSMENT/PLAN: 78 year old female with a past medical history of COPD and heart failure with preserved ejection fraction, hypertension, hyperlipidemia arrived to the emergency room complaining of shortness of breath and productive cough Acute Hypoxic Respiratory Failure: 2/2 combination of COPD and CHF exacerbation (BNP 1800) medrol to 40q8h. Per pulm, might be able to switched to oral prednisone tomorrow if pt continues to respond well duonebs q8h albuterol PRN lasix 40 PO BID accurate Is/Os daily weights echo showed EF of 55-60%, LV impaired relaxation, Pulm pressures in the 53mmHg if RA is 3mmHG, Mod tricuspid regurg Hypertension: continue matoprolol 25 continue valsartan 80 BID Hyperlipidemia continue atorvastatin 80 Prophylaxis hep subQ Visit type - Emergency Visit Emergency Visit: Yes ED Registration Date: 11/27/18 Care time: The patient presented to the Emergency Department on the above date and was hospitalized for further evaluation of their emergent condition. - New Patient This patient is new to me today: Yes Date on this admission: 11/30/18 - Critical Care Critical Care patient: No - Discharge Referral Referred to [facility] Med P.C.: No ATTENDING PHYSICIAN STATEMENT I saw and evaluated the patient. I reviewed the resident's note and discussed the case with the resident. I agree with the resident's findings and plan as documented. SUBJECTIVE: OBJECTIVE: ASSESSMENT AND PLAN:
--- NOTE | 2018-11-30 13:45 | ECHO ---
Name: ALEXIS DEVI Exam:Adult Echocardiogram Study Date: 11/30/2018 09:09 AM Age: 78 yrs Reason For Study: CHF ELEVATED RVSP INPAST Height: 63 in Weight: 189 lb BSA: 1.9 m2 MMode/2D Measurements & Calculations IVSd: 1.1 cm Ao root diam: 2.6 cm LVIDd: 5.1 cm LA dimension: 3.8 cm LVIDs: 3.7 cm LVPWd: 1.1 cm EDV(Teich): 124.8 ml LVOT diam: 2.1 cm ESV(Teich): 58.6 ml Doppler Measurements & Calculations MV E max noel: 151.5 cm/sec Ao V2 max: 271.5 cm/sec MV A max noel: 150.1 cm/sec Ao max P.5 mmHg MV E/A: 1.0 Ao V2 mean: 192.6 cm/sec MV dec time: 0.20 sec Ao mean P.3 mmHg Ao V2 VTI: 67.2 cm MATTHEW(V,D): 1.2 cm2 LV V1 max P.9 mmHg MR max noel: 389.3 cm/sec LV V1 max: 98.3 cm/sec MR max P.6 mmHg TR max noel: 299.3 cm/sec Med Peak E' Noel: 4.4 cm/sec TR max P.9 mmHg Med E/e': 34.2 Lat Peak E' Noel: 6.8 cm/sec Lat E/e': 22.4 Procedure A complete two-dimensional transthoracic echocardiogram was performed (2D, M-mode, Doppler and color flow Doppler). Left Ventricle The left ventricle is normal in size. Left ventricular systolic function is normal. Ejection Fraction = 55- 60%. LV diastology reveals impaired relaxation with elevated filling pressure. No regional wall motio n abnormalities noted. Right Ventricle The right ventricle is normal size. The right ventricular systolic function is normal. Atria The left atrial size is normal. Right atrial size is normal. Mitral Valve There is mild mitral annular calcification. There is mild mitral regurgitation. Tricuspid Valve The tricuspid valve is normal in structure and function. There is moderate tricuspid regurgitation. P ulmonary artery systolic pressure is at least 53 mmHg if RA pressure is assumed 3 mmHg. Aortic Valve There is mild aortic valve thickening. No aortic regurgitation is present. Pulmonic Valve The pulmonic valve is not well visualized. Great Vessels The aortic root is normal size. Pericardium/Pleura There is no pericardial effusion. Interpretation Summary The left ventricle is normal in size. Left ventricular systolic function is normal. No regional wall motion abnormalities noted. Ejection Fraction = 55-60%. LV diastology reveals impaired relaxation with elevated filling pressure The right ventricular systolic function is normal. The left atrial size is normal. Right atrial size is normal. There is mild mitral annular calcification. There is mild mitral regurgitation. There is moderate tricuspid regurgitation. Pulmonary artery systolic pressure is at least 53 mmHg if RA pressure is assumed 3 mmHg There is mild aortic valve thickening. There is no pericardial effusion. Previous study is not available for comparison José Manuel Rivera MD 11/30/2018 01:44 PM
--- NOTE | 2018-11-30 16:20 | PN ---
Progress Note (short form) - Note Progress Note: s: no chest pain, palps, dizziness, dyspnea Vital Signs Period Temp Pulse Resp BP Sys/Ambrose Pulse Ox Last 24 Hr 97.9 F-98.9 F 68-76 17-20 139-160/54-80 96-97 nad, calm +JVD rrr nl s1, s2 2/6 sys murmur at lsb and apex CTAB + bs soft nt nd ext 1+ edema gina lower ext aaox3 no jaundice, diaphoresis no carotid bruits not agitated Current Medications Albuterol Sulfate (Ventolin 0.083% Nebulizer Soln -) 1 amp NEB Q4H PRN PRN Reason: SHORT OF BREATH/WHEEZING Last Admin: 11/29/18 18:24 Dose: 1 amp Albuterol/Ipratropium (Duoneb -) 1 amp NEB RQID [facility] Last Admin: 11/30/18 15:59 Dose: 1 amp Atorvastatin Calcium (Lipitor -) 80 mg PO HS [facility] Last Admin: 11/29/18 21:49 Dose: 80 mg Clotrimazole (Lotrisone Cream (Small Tube)) 1 applic TP BID [facility] Last Admin: 11/30/18 10:26 Dose: 1 applic Furosemide (Lasix -) 40 mg PO BID@0600,1400 [facility] Last Admin: 11/30/18 14:15 Dose: 40 mg Heparin Sodium (Porcine) (Heparin -) 5,000 unit SQ TID [facility] Last Admin: 11/30/18 14:14 Dose: 5,000 unit Methylprednisolone Sodium Succinate (Solu-Medrol -) 30 mg IVPUSH Q12H [facility] Last Admin: 11/30/18 12:27 Dose: Not Given Metoprolol Succinate (Toprol Xl -) 25 mg PO DAILY [facility] Last Admin: 11/30/18 10:27 Dose: 25 mg Valsartan (Diovan -) 80 mg PO BID [facility] Last Admin: 11/30/18 10:27 Dose: 80 mg echo 11/2018 nl LV function, RV nl, mild MR, mod TR, PASP >53 mmHg ekg: sinus, LBBB echo 01/2017: nl lv size/fn. tds for rwma. rv not well seen. mod unruly. 1+ mr/ tr. rvsp 40-50. Mayra stress MPI 06/2012: small, mild reversible anterior wall defect c/w anterior ischemia vs variable breast attenuation artifact. 78 with h/o HTN, hl, pulm htn, known lbbb, diastolic hf on po lasix, copd/ chronic bronchitis (previously prescribed home O2 but doesn't use regularly), anxiety who p/w shortness of breath carbajal/acute diastolic hf exacerbation, COPD exacerbation - treating for COPD per primary - transitioned to PO lasix, continue - echo with elevated PASP - likely in setting of COPD, outpatient sleep study planned - cont ARB, bb htn - cont on home regimen hl - con't statin
[2018-11-30] MEDS: ATORVASTATIN CA 80 MG TABLET (FP) PO SCH (21:40)
[2018-11-30] MEDS ORDERED: PATIENT'S OWN MEDICATION (NON-FORMULARY) (Benzonatate 100 MG) PO PRN (22:00)
[2018-11-30] MEDS ORDERED: ACETAMINOPHEN 325 MG TABLET (FP) PO ONE (23:19)
[2018-12-01] MEDS: HEPARIN NA (PORCINE) 5,000 UNITS/ML 1ML VIAL SQ SCH ×3 (06:31→21:10)
[2018-12-01] MEDS: FUROSEMIDE 40 MG TABLET (FP) PO SCH ×2 (06:31→14:34)
[2018-12-01] MEDS: ALBUTEROL SO4 2.5/IPRATROPIUM 0.5 INH SOL 3 ML VIAL.NEB. NEB SCH ×4 (07:28→19:45)
[2018-12-01 08:09] LABS: BASO % 0.2 % (0-2.0); HEMATOCRIT 37.7 % (32.4-45.2); HEMOGLOBIN 12.6 GM/dL (10.7-15.3); LYMPH % 7.2 % (8-40); MCH 31.8 pg (25.7-33.7); MCHC 33.3 g/dl (32.0-36.0); MEAN CELL VOLUME 95.5 fl (80-96); MEAN PLT VOLUME 7.9 fl (7.5-11.1); MONO % 5.4 % (3.8-10.2); NEUT % 87.2 % (42.8-82.8); PLATELET COUNT 334 K/MM3 (134-434); RBC 3.95 M/mm3 (3.60-5.2); RDW 13.1 % (11.6-15.6)
--- NOTE | 2018-12-01 11:15 | PN ---
Progress Note (short form) - Note Progress Note: Breathing feels better today. But severe left sided back pain that feels like a muscle spasm. No other acute events overnight. Intake & Output 11/28/18 11/29/18 11/30/18 12/01/18 23:59 23:59 23:59 23:59 Intake Total 480 1100 995 220 Balance 480 1100 995 220 Weight 188 lb 186 lb 185 lb 5 oz Last Vital Signs Temp Pulse Resp BP Pulse Ox 98.4 F 77 18 154/73 97 12/01/18 05:38 12/01/18 05:38 12/01/18 05:38 12/01/18 05:38 11/30/18 21:00 Active Medications Acetaminophen (Tylenol -) 650 mg PO Q4H PRN PRN Reason: PAIN LEVEL 1-5 Albuterol Sulfate (Ventolin 0.083% Nebulizer Soln -) 1 amp NEB Q4H PRN PRN Reason: SHORT OF BREATH/WHEEZING Last Admin: 11/29/18 18:24 Dose: 1 amp Albuterol/Ipratropium (Duoneb -) 1 amp NEB RQID [facility] Last Admin: 12/01/18 07:28 Dose: 1 amp Atorvastatin Calcium (Lipitor -) 80 mg PO HS [facility] Last Admin: 11/30/18 21:40 Dose: 80 mg Clotrimazole (Lotrisone Cream (Small Tube)) 1 applic TP BID [facility] Last Admin: 11/30/18 22:17 Dose: 1 applic Furosemide (Lasix -) 40 mg PO BID@0600,1400 [facility] Last Admin: 12/01/18 06:31 Dose: 40 mg Heparin Sodium (Porcine) (Heparin -) 5,000 unit SQ TID [facility] Last Admin: 12/01/18 06:31 Dose: 5,000 unit Ketorolac Tromethamine (Toradol Injection -) 30 mg IVPUSH Q6H PRN PRN Reason: pain Stop: 12/06/18 11:09 Methylprednisolone Sodium Succinate (Solu-Medrol -) 30 mg IVPUSH Q12H [facility] Last Admin: 11/30/18 22:17 Dose: 30 mg Metoprolol Succinate (Toprol Xl -) 25 mg PO DAILY [facility] Last Admin: 11/30/18 10:27 Dose: 25 mg Non-Formulary Medication (Benzonatate) 100 mg PO TID [facility] Valsartan (Diovan -) 80 mg PO BID [facility] Last Admin: 11/30/18 21:40 Dose: 80 mg Constitutional: Yes: Well Nourished, No Distress Eyes: Yes: Conjunctiva Clear, EOM Intact HENT: Yes: Atraumatic, Normocephalic Neck: Yes: Supple, Trachea Midline Cardiovascular: Yes: Regular Rate and Rhythm Respiratory: Yes: Cough, Diminished, On Nasal O2, scattered rhonchi, Less SOB, less expiratory wheezes. No: Accessory Muscle Use, Rales, Stridor ...Inspection: Yes: WNL ...Clubbing: No Gastrointestinal: Yes: Normal Bowel Sounds, Soft, Abdomen, Obese Renal/: Yes: WNL Musculoskeletal: Yes: WNL Extremities: Yes: WNL Edema: No Peripheral Pulses WNL: Yes Integumentary: Yes: WNL Neurological: Yes: WNL, Alert, Oriented ...Motor Strength: WNL Psychiatric: Yes: WNL, Alert, Oriented Labs: Laboratory Results - last 24 hr 11/30/18 12/01/18 08:41 06:57 WBC 12.0 H RBC 3.95 Hgb 12.6 Hct 37.7 MCV 95.5 MCH 31.8 MCHC 33.3 RDW 13.1 Plt Count 334 MPV 7.9 Absolute Neuts (auto) 10.4 H Neutrophils % 87.2 H Neutrophils % (Manual) 88.8 H Band Neutrophils % 0.0 Lymphocytes % 7.2 L D Lymphocytes % (Manual) 7.1 L Monocytes % 5.4 D Monocytes % (Manual) 4 Eosinophils % 0.0 Eosinophils % (Manual) 0.0 Basophils % 0.2 D Basophils % (Manual) 0.0 Myelocytes % (Man) 0 Promyelocytes % (Man) 0 Blast Cells % (Manual) 0 Nucleated RBC % 0 Metamyelocytes 0 Hypochromia 0 Platelet Estimate Normal Polychromasia 0 Poikilocytosis 0 Anisocytosis 1+ Microcytosis 0 Macrocytosis 1+ Problem List - Problems (1) COPD exacerbation Code(s): J44.1 - CHRONIC OBSTRUCTIVE PULMONARY DISEASE W (ACUTE) EXACERBATION (2) Anxiety Code(s): F41.9 - ANXIETY DISORDER, UNSPECIFIED (3) COPD (chronic obstructive pulmonary disease) Code(s): J44.9 - CHRONIC OBSTRUCTIVE PULMONARY DISEASE, UNSPECIFIED Qualifiers: COPD type: unspecified COPD Qualified Code(s): J44.9 - Chronic obstructive pulmonary disease, unspecified (4) Obesity Code(s): E66.9 - OBESITY, UNSPECIFIED Qualifiers: Obesity type: due to excess calories Obesity classification: adult class 2 (BMI 35 - 39.9) Serious obesity comorbidity presence: with serious comorbidity Body mass index: BMI 36.0-36.9 Qualified Code(s): E66.01 - Morbid (severe) obesity due to excess calories; Z68.36 - Body mass index (BMI) 36.0-36.9, adult (5) SOB (shortness of breath) Code(s): R06.02 - SHORTNESS OF BREATH Assessment/Plan Trial of Toradol IV Medrol O2 as needed BD TX standing and PRN Monitor off ABX: suspect viral illness, took a Zpack as an outpatient VTE prophylaxis No smoking Will need formal sleep workup as an outpatient Dr Servin Problem List - Problems (1) COPD exacerbation Code(s): J44.1 - CHRONIC OBSTRUCTIVE PULMONARY DISEASE W (ACUTE) EXACERBATION (2) Anxiety Code(s): F41.9 - ANXIETY DISORDER, UNSPECIFIED (3) COPD (chronic obstructive pulmonary disease) Code(s): J44.9 - CHRONIC OBSTRUCTIVE PULMONARY DISEASE, UNSPECIFIED Qualifiers: COPD type: unspecified COPD Qualified Code(s): J44.9 - Chronic obstructive pulmonary disease, unspecified (4) Obesity Code(s): E66.9 - OBESITY, UNSPECIFIED Qualifiers: Obesity type: due to excess calories Obesity classification: adult class 2 (BMI 35 - 39.9) Serious obesity comorbidity presence: with serious comorbidity Body mass index: BMI 36.0-36.9 Qualified Code(s): E66.01 - Morbid (severe) obesity due to excess calories; Z68.36 - Body mass index (BMI) 36.0-36.9, adult (5) SOB (shortness of breath) Code(s): R06.02 - SHORTNESS OF BREATH
[2018-12-01] MEDS: VALSARTAN 80 MG TABLET (UD) PO SCH ×2 (11:19→21:10)
[2018-12-01] MEDS: metoPROLOL SUCCINATE 25 MG TAB.SR.24H (FP) PO SCH (11:19)
[2018-12-01] MEDS: CLOTRIMAZOLE/BETAMET DIPROP 15 GM TUBE TP SCH ×2 (11:19→21:10)
[2018-12-01] MEDS: methylPREDNISolone NA SUCC 40 MG/1 ML VIAL IVPUSH SCH ×2 (11:20→17:21)
[2018-12-01] MEDS: ACETAMINOPHEN 325 MG TABLET (FP) PO PRN ×3 (11:21→21:09)
--- NOTE | 2018-12-01 13:34 | PN ---
Progress Note, Physician Chief Complaint: pulled a back muscle. Denies CP, SOB above baseline - Current Medication List Current Medications: Active Medications Acetaminophen (Tylenol -) 650 mg PO Q4H PRN PRN Reason: PAIN LEVEL 1-5 Last Admin: 12/01/18 11:21 Dose: 650 mg Albuterol Sulfate (Ventolin 0.083% Nebulizer Soln -) 1 amp NEB Q4H PRN PRN Reason: SHORT OF BREATH/WHEEZING Last Admin: 11/29/18 18:24 Dose: 1 amp Albuterol/Ipratropium (Duoneb -) 1 amp NEB RQID [facility] Last Admin: 12/01/18 11:30 Dose: 1 amp Atorvastatin Calcium (Lipitor -) 80 mg PO HS [facility] Last Admin: 11/30/18 21:40 Dose: 80 mg Clotrimazole (Lotrisone Cream (Small Tube)) 1 applic TP BID [facility] Last Admin: 12/01/18 11:19 Dose: 1 applic Cyclobenzaprine HCl (Cyclobenzaprine Hcl) 5 mg PO ONCE ONE Stop: 12/02/18 12:20 Furosemide (Lasix -) 40 mg PO BID@0600,1400 [facility] Last Admin: 12/01/18 06:31 Dose: 40 mg Heparin Sodium (Porcine) (Heparin -) 5,000 unit SQ TID [facility] Last Admin: 12/01/18 06:31 Dose: 5,000 unit Ketorolac Tromethamine (Toradol Injection -) 30 mg IVPUSH Q6H PRN PRN Reason: pain 6-10 Stop: 12/06/18 11:09 Methylprednisolone Sodium Succinate (Solu-Medrol -) 40 mg IVPUSH Q8H-IV [facility] Metoprolol Succinate (Toprol Xl -) 25 mg PO DAILY [facility] Last Admin: 12/01/18 11:19 Dose: 25 mg Non-Formulary Medication (Benzonatate) 100 mg PO TID [facility] Valsartan (Diovan -) 80 mg PO BID [facility] Last Admin: 12/01/18 11:19 Dose: 80 mg - Objective Vital Signs: Vital Signs Temperature 98.4 F 12/01/18 05:38 Pulse Rate 77 12/01/18 05:38 Respiratory Rate 18 12/01/18 09:00 Blood Pressure 154/73 12/01/18 05:38 O2 Sat by Pulse Oximetry (%) 97 12/01/18 09:00 Constitutional: Yes: No Distress, Calm Cardiovascular: Yes: Regular Rate and Rhythm Respiratory: Yes: Rhonchi, Other (decreased breath sounds b/l) Gastrointestinal: Yes: Soft Edema: No Neurological: Yes: Alert, Oriented Labs: CBC, BMP 12/01/18 06:57 11/30/18 08:41 Assessment/Plan echo 11/2018 nl LV function, RV nl, mild MR, mod TR, PASP >53 mmHg ekg: sinus, LBBB echo 01/2017: nl lv size/fn. tds for rwma. rv not well seen. mod unruly. 1+ mr/ tr. rvsp 40-50. Mayra stress MPI 06/2012: small, mild reversible anterior wall defect c/w anterior ischemia vs variable breast attenuation artifact. 78 with h/o HTN, hl, pulm htn, known lbbb, diastolic hf on po lasix, copd/ chronic bronchitis (previously prescribed home O2 but doesn't use regularly), anxiety who p/w shortness of breath 1. carbajal/acute diastolic hf exacerbation, COPD exacerbation: - treating for COPD per primary - transitioned to PO lasix, continue - echo with elevated PASP - likely in setting of COPD, outpatient sleep study planned - cont ARB, bb 2. htn: - cont on home regimen 3. hl: - con't statin
--- NOTE | 2018-12-01 14:02 | PN ---
Physical Exam: SUBJECTIVE: Patient seen and examined. c/o back mod back pain OBJECTIVE: Vital Signs Period Temp Pulse Resp BP Sys/Ambrose Pulse Ox Last 24 Hr 98.2 F-98.6 F 72-108 18-18 153-156/72-73 97-97 GENERAL: The patient is awake, alert, and fully oriented, in mild distress. HEAD: Normal with no signs of trauma. EYES: PERRL, extraocular movements intact, sclera anicteric, conjunctiva clear. No ptosis. ENT: oropharynx clear without exudates, moist mucous membranes. NECK: Trachea midline, full range of motion, supple. LUNGS: Breath sounds clear to auscultation bilaterally decreased breath sound in left lung field, mild wheezes on anterior lung houser, no crackles, no accessory muscle use. HEART: Regular rate and rhythm, S1, S2 without murmur, rub or gallop. ABDOMEN: Soft, nontender, nondistended, normoactive bowel sounds, no guarding, no rebound, no hepatosplenomegaly, no masses. EXTREMITIES: 2+ pulses, warm, well-perfused, no edema. PSYCH: Normal mood, normal affect. SKIN: Warm, dry, normal turgor, seborrheic keratosis Laboratory Results - last 24 hr 12/01/18 06:57 WBC 12.0 H RBC 3.95 Hgb 12.6 Hct 37.7 MCV 95.5 MCH 31.8 MCHC 33.3 RDW 13.1 Plt Count 334 MPV 7.9 Absolute Neuts (auto) 10.4 H Neutrophils % 87.2 H Lymphocytes % 7.2 L D Monocytes % 5.4 D Eosinophils % 0.0 Basophils % 0.2 D Nucleated RBC % 0 Active Medications Generic Name Dose Route Start Last Admin Trade Name Freq PRN Reason Stop Dose Admin Acetaminophen 650 mg 12/01/18 09:42 12/01/18 11:21 Tylenol - PO 650 mg Q4H PRN Administration PAIN LEVEL 1-5 Albuterol Sulfate 1 amp 11/29/18 17:10 11/29/18 18:24 Ventolin 0.083% Nebulizer Soln - NEB 1 amp Q4H PRN Administration SHORT OF BREATH/WHEEZING Albuterol/Ipratropium 1 amp 11/29/18 20:00 12/01/18 11:30 Duoneb - NEB 1 amp RQID [facility] Administration Atorvastatin Calcium 80 mg 11/29/18 22:00 11/30/18 21:40 Lipitor - PO 80 mg HS [facility] Administration Clotrimazole 1 applic 11/29/18 22:00 12/01/18 11:19 Lotrisone Cream (Small Tube) TP 1 applic BID [facility] Administration Cyclobenzaprine HCl 5 mg 12/02/18 12:19 Cyclobenzaprine Hcl PO 12/02/18 12:20 ONCE ONE Furosemide 40 mg 11/29/18 17:10 12/01/18 06:31 Lasix - PO 40 mg BID@0600,1400 [facility] Administration Heparin Sodium (Porcine) 5,000 unit 11/29/18 22:00 12/01/18 06:31 Heparin - SQ 5,000 unit TID [facility] Administration Ketorolac Tromethamine 30 mg 12/01/18 11:10 Toradol Injection - IVPUSH 12/06/18 11:09 Q6H PRN pain 6-10 Methylprednisolone Sodium Succinate 40 mg 12/01/18 18:00 Solu-Medrol - IVPUSH Q8H-IV [facility] Metoprolol Succinate 25 mg 11/30/18 10:00 12/01/18 11:19 Toprol Xl - PO 25 mg DAILY [facility] Administration Non-Formulary Medication 100 mg 11/30/18 22:00 Benzonatate PO TID [facility] Valsartan 80 mg 11/29/18 22:00 12/01/18 11:19 Diovan - PO 80 mg BID [facility] Administration ASSESSMENT/PLAN: 78 year old female with a past medical history of COPD and heart failure with preserved ejection fraction, hypertension, hyperlipidemia arrived to the emergency room complaining of shortness of breath and productive cough Acute Hypoxic Respiratory Failure: 2/2 combination of COPD and CHF exacerbation (BNP 1800) medrol increased to 40q8h. Per pulm, might be able to switched to oral prednisone tomorrow if pt continues to respond well duonebs q8h albuterol PRN lasix 40 PO BID cont per cardio accurate Is/Os daily weights echo showed EF of 55-60%, LV impaired relaxation, Pulm pressures in the 53mmHg if RA is 3mmHG, Mod tricuspid regurg Acute onset back pain heat packs have been ineffective trial of toradol started per pulm rec flexeril 5mg PO once steroids for COPD might assist in relieving pain Hypertension: continue matoprolol 25 continue valsartan 80 BID Hyperlipidemia continue atorvastatin 80 Prophylaxis hep subQ Visit type - Emergency Visit Emergency Visit: Yes ED Registration Date: 11/27/18 Care time: The patient presented to the Emergency Department on the above date and was hospitalized for further evaluation of their emergent condition. - New Patient This patient is new to me today: No - Critical Care Critical Care patient: No - Discharge Referral Referred to [facility] No ATTENDING PHYSICIAN STATEMENT I saw and evaluated the patient. I reviewed the resident's note and discussed the case with the resident. I agree with the resident's findings and plan as documented. SUBJECTIVE: OBJECTIVE: ASSESSMENT AND PLAN:
[2018-12-01] MEDS: KETOROLAC TROMETHAMINE 30 MG/1 ML VIAL IVPUSH PRN (14:34)
[2018-12-01] MEDS ORDERED: CYCLOBENZAPRINE HCL 5 MG TABLET PO ONE (17:15)
[2018-12-01] MEDS: ATORVASTATIN CA 80 MG TABLET (FP) PO SCH (21:10)
--- NOTE | 2018-12-01 21:55 | PN ---
Teaching Attending Note Name of Resident: Dea Joseph ATTENDING PHYSICIAN STATEMENT I saw and evaluated the patient. I reviewed the resident's note and discussed the case with the resident. I agree with the resident's findings and plan as documented. SUBJECTIVE: Patient is better breathing ferraro but c/o having low back pain. OBJECTIVE: Vital Signs Temperature 97.9 F 12/01/18 19:37 Pulse Rate 80 12/01/18 19:37 Respiratory Rate 20 12/01/18 19:37 Blood Pressure 147/74 12/01/18 19:37 O2 Sat by Pulse Oximetry (%) 97 12/01/18 09:00 GENERAL: The patient is awake, alert, and fully oriented, in no acute distress. HEAD: Normal with no signs of trauma. EYES: PERRL, extraocular movements intact, sclera anicteric, conjunctiva clear. ENT: Ears normal, oropharynx clear without exudates, moist mucous membranes. NECK: Trachea midline, full range of motion, supple. LUNGS: decreased Breath sounds bl, positive for rhonchi, no wheezes, no crackles, no accessory muscle use. HEART: RRR, S1, S2 positive, FREDA 2/6 murmur, no rub or gallop. ABDOMEN: Soft, NT,ND, normoactive bowel sounds, no guarding, no rebound, no hepatosplenomegaly, no masses. EXTREMITIES: 2+ pulses, warm, well-perfused, no edema. NEUROLOGICAL: Cranial nerves II through XII grossly intact. Normal speech, gait not observed. PSYCH: Normal mood, normal affect. SKIN: Warm, dry, normal turgor, no rashes or lesions noted CBCD WBC 12.0 K/mm3 (4.0-10.0) H 12/01/18 06:57 RBC 3.95 M/mm3 (3.60-5.2) 12/01/18 06:57 Hgb 12.6 GM/dL (10.7-15.3) 12/01/18 06:57 Hct 37.7 % (32.4-45.2) 12/01/18 06:57 MCV 95.5 fl (80-96) 12/01/18 06:57 MCHC 33.3 g/dl (32.0-36.0) 12/01/18 06:57 RDW 13.1 % (11.6-15.6) 12/01/18 06:57 Plt Count 334 K/MM3 (134-434) 12/01/18 06:57 MPV 7.9 fl (7.5-11.1) 12/01/18 06:57 CMP Sodium 141 mmol/L (136-145) 11/30/18 08:41 Potassium 3.8 mmol/L (3.5-5.1) 11/30/18 08:41 Chloride 103 mmol/L (98-107) 11/30/18 08:41 Carbon Dioxide 30 mmol/L (21-32) 11/30/18 08:41 Anion Gap 9 MMOL/L (8-16) 11/30/18 08:41 BUN 35.1 mg/dL (7-18) H 11/30/18 08:41 Creatinine 1.1 mg/dL (0.55-1.3) 11/30/18 08:41 Random Glucose 233 mg/dL (74-106) H 11/30/18 08:41 Calcium 8.6 mg/dL (8.5-10.1) 11/30/18 08:41 Total Bilirubin 0.5 mg/dL (0.2-1) 11/27/18 17:09 AST 42 U/L (15-37) H 11/27/18 17:09 ALT 58 U/L (13-61) 11/27/18 17:09 Alkaline Phosphatase 93 U/L (45-117) 11/27/18 17:09 Total Protein 6.1 g/dl (6.4-8.2) L 11/27/18 17:09 Albumin 3.3 g/dl (3.4-5.0) L 11/27/18 17:09 CARDIAC ENZYMES Creatine Kinase 303 U/L (26-192) H 11/27/18 19:38 Troponin I 0.02 ng/ml (0.00-0.05) 11/27/18 19:38 Current Medications Generic Name Dose Route Start Last Admin Trade Name Freq PRN Reason Stop Dose Admin Acetaminophen 650 mg 12/01/18 09:42 12/01/18 21:09 Tylenol - PO 650 mg Q4H PRN Administration PAIN LEVEL 1-5 Albuterol Sulfate 1 amp 11/29/18 17:10 11/29/18 18:24 Ventolin 0.083% Nebulizer Soln - NEB 1 amp Q4H PRN Administration SHORT OF BREATH/WHEEZING Albuterol/Ipratropium 1 amp 11/29/18 20:00 12/01/18 19:45 Duoneb - NEB 1 amp RQID [facility] Administration Atorvastatin Calcium 80 mg 11/29/18 22:00 12/01/18 21:10 Lipitor - PO 80 mg HS [facility] Administration Clotrimazole 1 applic 11/29/18 22:00 12/01/18 21:10 Lotrisone Cream (Small Tube) TP 1 applic BID [facility] Administration Furosemide 40 mg 11/29/18 17:10 12/01/18 14:34 Lasix - PO 40 mg BID@0600,1400 [facility] Administration Heparin Sodium (Porcine) 5,000 unit 11/29/18 22:00 12/01/18 21:10 Heparin - SQ 5,000 unit TID [facility] Administration Ketorolac Tromethamine 30 mg 12/01/18 11:10 12/01/18 14:34 Toradol Injection - IVPUSH 12/06/18 11:09 30 mg Q6H PRN Administration pain 6-10 Methylprednisolone Sodium Succinate 40 mg 12/01/18 18:00 12/01/18 17:21 Solu-Medrol - IVPUSH 40 mg Q8H-IV [facility] Administration Metoprolol Succinate 25 mg 11/30/18 10:00 12/01/18 11:19 Toprol Xl - PO 25 mg DAILY [facility] Administration Non-Formulary Medication 100 mg 11/30/18 22:00 Benzonatate PO Q8H PRN COUGH Valsartan 80 mg 11/29/18 22:00 12/01/18 21:10 Diovan - PO 80 mg BID [facility] Administration Home Medications Medication Instructions Recorded Atorvastatin Ca [Lipitor] 80 mg PO HS 02/12/15 Albuterol 0.083% Nebulizer Basilia 1 amp NEB Q4HPO #120 amp 02/21/15 [Ventolin 0.083% Nebulizer Soln -] Lorazepam 0.5 mg PO DAILY PRN 02/12/17 Albuterol Sulfate Inhaler - 2 inh PO Q4H 11/28/18 [Ventolin Hfa Inhaler -] Azithromycin 250 mg PO DAILY 11/28/18 Benzonatate [Tessalon Pearls -] 100 mg PO TID 11/28/18 Budesonide/Formeterol Fumarate 2 inh PO BID 11/28/18 [SYMBICORT 160/4.5mcg -] Cholecalciferol (Vitamin D3) 1,000 unit PO DAILY 11/28/18 [Vitamin D3 -] Furosemide 40 mg PO DAILY 11/28/18 Losartan Potassium 100 mg PO DAILY 11/28/18 Metoprolol Succinate 25 mg PO DAILY 11/28/18 Omeprazole/Sodium Bicarbonate 1 each PO DAILY 11/28/18 [Omeprazole-Bicarb 20-1,680 Pkt] Sertraline HCl 25 mg PO DAILY 11/28/18 Triamcinolone 0.1% Ointment 1 applic TP DAILY 11/28/18 [Aristocort 0.1% Ointment -] CXR: large heart, sclerotic knob, prominent mauricio and scarring or chronic atelectasis in the midlung field. Assessment and plan: Patient is a 78 year old female with a past medical history of COPD and D.CHF, hypertension, hyperlipidemia presented to ED. c/o shortness of breath and productive cough. #Acute Hypoxic Respiratory Failure/due to copd exacerbation/chF: continue with Solu Medrol 40mg q8, kept the same dose since will help her back pain as well. #COPD : on solu medrol continue #acute D.CHF exacerbation (BNP 1800)continue Lasix #Hypertension: continue metoprolol 25, valsartan 80 BID #Hyperlipidemia continue atorvastatin 80 # Low back spasm started low dose flexeril x 1 dose DVT Prophylaxis: SCDs , heparin 5000 subq tid dc when stable
[2018-12-02] MEDS: KETOROLAC TROMETHAMINE 30 MG/1 ML VIAL IVPUSH PRN (00:50)
[2018-12-02] MEDS: ALBUTEROL SO4 0.083% IH SOL 2.5 MG/3 ML VIAL.NEB. NEB PRN (01:05)
[2018-12-02] MEDS: methylPREDNISolone NA SUCC 40 MG/1 ML VIAL IVPUSH SCH ×3 (01:12→18:33)
[2018-12-02] MEDS: HEPARIN NA (PORCINE) 5,000 UNITS/ML 1ML VIAL SQ SCH ×2 (07:15→15:07)
[2018-12-02] MEDS: FUROSEMIDE 40 MG TABLET (FP) PO SCH ×2 (07:15→15:06)
[2018-12-02 07:58] LABS: BASO % 0.2 % (0-2.0); HEMATOCRIT 36.9 % (32.4-45.2); HEMOGLOBIN 12.3 GM/dL (10.7-15.3); MCH 31.7 pg (25.7-33.7); MCHC 33.4 g/dl (32.0-36.0); MEAN PLT VOLUME 7.6 fl (7.5-11.1); MONO % 3.2 % (3.8-10.2); NEUT % 92.6 % (42.8-82.8); PLATELET COUNT 303 K/MM3 (134-434); RBC 3.89 M/mm3 (3.60-5.2); RDW 12.8 % (11.6-15.6); WHITE BLOOD COUNT 12.5 K/mm3 (4.0-10.0)
[2018-12-02] MEDS: ALBUTEROL SO4 2.5/IPRATROPIUM 0.5 INH SOL 3 ML VIAL.NEB. NEB SCH ×3 (07:58→17:00)
[2018-12-02 10:44] LABS: ANISOCYTOSIS 0; MACROCYTOSIS 0; PLATELET ESTIMATE NORMAL
[2018-12-02] MEDS: metoPROLOL SUCCINATE 25 MG TAB.SR.24H (FP) PO SCH (10:45)
[2018-12-02] MEDS: VALSARTAN 80 MG TABLET (UD) PO SCH (10:45)
[2018-12-02] MEDS: CLOTRIMAZOLE/BETAMET DIPROP 15 GM TUBE TP SCH (10:45)
[2018-12-02] MEDS: ACETAMINOPHEN 325 MG TABLET (FP) PO PRN ×2 (11:00→15:06)
[2018-12-02 11:13] VITALS: BP 161/76; TEMP 98.2
[2018-12-02 12:54] VITALS: PULSE 100
--- NOTE | 2018-12-02 14:05 | PN ---
Progress Note (short form) - Note Progress Note: PULMONARY States breathing is better. Less cough and wheezing. Vital Signs Period Temp Pulse Resp BP Sys/Ambrose Pulse Ox Last 24 Hr 97.9 F-98.7 F 78-100 19-21 147-162/68-76 90-99 Gen: NAD at rest Heart: RRR Lung: decreased breath sounds at the bases Abd: soft, nontender Ext: no edema CBC, BMP 12/02/18 06:25 11/30/18 08:41 Active Medications Acetaminophen (Tylenol -) 650 mg PO Q4H PRN PRN Reason: PAIN LEVEL 1-5 Last Admin: 12/02/18 11:00 Dose: 650 mg Albuterol Sulfate (Ventolin 0.083% Nebulizer Soln -) 1 amp NEB Q4H PRN PRN Reason: SHORT OF BREATH/WHEEZING Last Admin: 12/02/18 01:05 Dose: 1 amp Albuterol/Ipratropium (Duoneb -) 1 amp NEB RQID [facility] Last Admin: 12/02/18 12:55 Dose: 1 amp Atorvastatin Calcium (Lipitor -) 80 mg PO HS [facility] Last Admin: 12/01/18 21:10 Dose: 80 mg Clotrimazole (Lotrisone Cream (Small Tube)) 1 applic TP BID [facility] Last Admin: 12/02/18 10:45 Dose: 1 applic Cyclobenzaprine HCl (Cyclobenzaprine Hcl) 5 mg PO HS [facility] Furosemide (Lasix -) 40 mg PO BID@0600,1400 [facility] Last Admin: 12/02/18 07:15 Dose: 40 mg Heparin Sodium (Porcine) (Heparin -) 5,000 unit SQ TID [facility] Last Admin: 12/02/18 07:15 Dose: 5,000 unit Insulin Aspart (Novolog Vial Sliding Scale -) 1 vial SQ ACHS [facility]; Protocol Ketorolac Tromethamine (Toradol Injection -) 30 mg IVPUSH Q6H PRN PRN Reason: pain 6-10 Stop: 12/03/18 11:09 Last Admin: 12/02/18 00:50 Dose: 30 mg Methylprednisolone Sodium Succinate (Solu-Medrol -) 40 mg IVPUSH Q8H-IV [facility] Last Admin: 12/02/18 10:45 Dose: 40 mg Metoprolol Succinate (Toprol Xl -) 25 mg PO DAILY [facility] Last Admin: 12/02/18 10:45 Dose: 25 mg Non-Formulary Medication (Benzonatate) 100 mg PO Q8H PRN PRN Reason: COUGH Last Admin: 12/02/18 11:01 Dose: 100 mg Valsartan (Diovan -) 80 mg PO BID [facility] Last Admin: 12/02/18 10:45 Dose: 80 mg A/P Acute COPD Exacerbation Acute on Chronic Diastolic Heart Failure HTN Hyperlipidemia - can change steroids to PO prednisone 40mg daily and taper as outpt - inhaled bronchodilators - O2 as needed - outpt PFTs - DVT prophylaxis
--- NOTE | 2018-12-02 14:23 | PN ---
Progress Note (short form) - Note Progress Note: s: no cp sob palps dizzy Current Medications Generic Name Dose Route Start Last Admin Trade Name Freq PRN Reason Stop Dose Admin Acetaminophen 650 mg 12/01/18 09:42 12/02/18 11:00 Tylenol - PO 650 mg Q4H PRN Administration PAIN LEVEL 1-5 Albuterol Sulfate 1 amp 11/29/18 17:10 12/02/18 01:05 Ventolin 0.083% Nebulizer Soln - NEB 1 amp Q4H PRN Administration SHORT OF BREATH/WHEEZING Albuterol/Ipratropium 1 amp 11/29/18 20:00 12/02/18 12:55 Duoneb - NEB 1 amp RQID [facility] Administration Atorvastatin Calcium 80 mg 11/29/18 22:00 12/01/18 21:10 Lipitor - PO 80 mg HS [facility] Administration Clotrimazole 1 applic 11/29/18 22:00 12/02/18 10:45 Lotrisone Cream (Small Tube) TP 1 applic BID [facility] Administration Cyclobenzaprine HCl 5 mg 12/02/18 22:00 Cyclobenzaprine Hcl PO HS [facility] Furosemide 40 mg 11/29/18 17:10 12/02/18 07:15 Lasix - PO 40 mg BID@0600,1400 [facility] Administration Heparin Sodium (Porcine) 5,000 unit 11/29/18 22:00 12/02/18 07:15 Heparin - SQ 5,000 unit TID [facility] Administration Insulin Aspart 1 vial 12/02/18 16:30 Novolog Vial Sliding Scale - SQ ACHS [facility] Protocol Ketorolac Tromethamine 30 mg 12/01/18 11:10 12/02/18 00:50 Toradol Injection - IVPUSH 12/03/18 11:09 30 mg Q6H PRN Administration pain 6-10 Methylprednisolone Sodium Succinate 40 mg 12/01/18 18:00 12/02/18 10:45 Solu-Medrol - IVPUSH 40 mg Q8H-IV [facility] Administration Metoprolol Succinate 25 mg 11/30/18 10:00 12/02/18 10:45 Toprol Xl - PO 25 mg DAILY [facility] Administration Non-Formulary Medication 100 mg 11/30/18 22:00 12/02/18 11:01 Benzonatate PO 100 mg Q8H PRN Administration COUGH Valsartan 80 mg 11/29/18 22:00 12/02/18 10:45 Diovan - PO 80 mg BID [facility] Administration Vital Signs Period Temp Pulse Resp BP Sys/Ambrose Pulse Ox Last 24 Hr 97.9 F-98.7 F 78-100 19-21 147-162/68-76 90-99 Constitutional: Yes: No Distress, Calm Cardiovascular: Yes: Regular Rate and Rhythm Respiratory: ctabl nl eff Gastrointestinal: Yes: Soft Edema: No Neurological: Yes: Alert, Oriented no jaundice diaphoresis Labs: CBC, BMP 12/02/18 06:25 11/30/18 08:41 Assessment/Plan echo 11/2018 nl LV function, RV nl, mild MR, mod TR, PASP >53 mmHg ekg: sinus, LBBB echo 01/2017: nl lv size/fn. tds for rwma. rv not well seen. mod unruly. 1+ mr/ tr. rvsp 40-50. Mayra stress MPI 06/2012: small, mild reversible anterior wall defect c/w anterior ischemia vs variable breast attenuation artifact. 78 with h/o HTN, hl, pulm htn, known lbbb, diastolic hf on po lasix, copd/ chronic bronchitis (previously prescribed home O2 but doesn't use regularly), anxiety who p/w shortness of breath 1. carbajal/acute diastolic hf exacerbation, COPD exacerbation: - treating for COPD per pulm - transitioned to PO lasix, continue - echo with elevated PASP - likely in setting of COPD, outpatient sleep study planned - cont ARB, bb 2. htn: - cont on home regimen. elevated now likely due to steroids. 3. hld: - con't statin cardiac ferraro stable
--- NOTE | 2018-12-02 15:54 | PN ---
Teaching Attending Note Name of Resident: Donnie Cortes ATTENDING PHYSICIAN STATEMENT I saw and evaluated the patient. I reviewed the resident's note and discussed the case with the resident. I agree with the resident's findings and plan as documented. SUBJECTIVE: pain in R flank, is better today. No fever or chills. pain is only with coughing. no SOB . OBJECTIVE: NAD Cv : RRR Lungs: CTAB , no wheezes or crackles Ext : 1+ pitting edema no TTP over the spine ASSESSMENT AND PLAN: Patient is a 78 year old female with a past medical history of COPD and D.CHF, hypertension, hyperlipidemia presented twith SOb and was found to have acute COPD and CHF exacerbation 1- acute COPD exacerbation 2- Acute on chronic diastolic CHF exacerbation 3- R flank pain , muscle strain plan : - cont lasisx, and switch to po steroids - try flexeril - cont HTN meds - cont statin - pre-post. does not require O2 - echo and cxray reviewed. notes reviewed. - dc home
[2018-12-02] MEDS ORDERED: INSULIN SLIDING SCALE (NOVOLOG) 1 VIAL SQ SCH (16:30)
--- NOTE | 2018-12-02 17:07 | DS ---
Physical Exam: SUBJECTIVE: Patient seen and examined. Pt cont to complain of muscular skeletal pain in mid lateral back. OBJECTIVE: Vital Signs Period Temp Pulse Resp BP Sys/Ambrose Pulse Ox Last 24 Hr 97.9 F-98.7 F 78-100 19-21 147-162/68-76 90-99 PHYSICAL EXAM GENERAL: The patient is awake, alert, and fully oriented, in no acute distress. HEAD: Normal with no signs of trauma. EYES: PERRL, extraocular movements intact, sclera anicteric, conjunctiva clear. ENT: oropharynx clear without exudates, moist mucous membranes. NECK: Trachea midline, full range of motion, supple. LUNGS: Breath sounds equal, clear to auscultation bilaterally, no wheezes, no crackles, no accessory muscle use. HEART: Regular rate and rhythm, S1, S2 without murmur, rub or gallop. ABDOMEN: Soft, nontender, nondistended, normoactive bowel sounds, no guarding, no rebound, no hepatosplenomegaly, no masses. EXTREMITIES: 2+ pulses, warm, well-perfused, no edema. LABS Laboratory Results - last 24 hr 12/02/18 06:25 WBC 12.5 H RBC 3.89 Hgb 12.3 Hct 36.9 MCV 95.0 MCH 31.7 MCHC 33.4 RDW 12.8 Plt Count 303 MPV 7.6 Absolute Neuts (auto) 11.5 H Neutrophils % 92.6 H Neutrophils % (Manual) 92.1 H Band Neutrophils % 0.0 Lymphocytes % 4.0 L D Lymphocytes % (Manual) 3.9 L D Monocytes % 3.2 L Monocytes % (Manual) 3 L Eosinophils % 0.0 Eosinophils % (Manual) 0.0 Basophils % 0.2 Basophils % (Manual) 0.0 Myelocytes % (Man) 0 Promyelocytes % (Man) 0 Blast Cells % (Manual) 0 Nucleated RBC % 0 Metamyelocytes 1 D Hypochromia 0 Platelet Estimate Normal Polychromasia 0 Poikilocytosis 0 Anisocytosis 0 Microcytosis 0 Macrocytosis 0 HOSPITAL COURSE: Date of Admission:11/27/18 78 year old female with a past medical history of COPD and heart failure with preserved ejection fraction, hypertension, hyperlipidemia arrived to the emergency room complaining of shortness of breath and productive cough. Pt was admitted for Acute Hypoxic Respiratory Failure 2/2 combination of COPD and CHF exacerbation (BNP 1800). Pt CHF exarcerbation was treated with lasix. Pt COPD exacerbation was treated with IV solumedrol (d/c on prednisone taper),duonebs albuterol PRN. Per pulm, O/P PFTs .Echo showed EF of 55-60%, LV impaired relaxation, Pulm pressures in the 53mmHg if RA is 3mmHG, Mod tricuspid regurg; pt to f/o with cardio as o/p. Pt believes she might have pulled her back as she was coming out of bathroom because she developed acute onset back pain. We gave heat packs have been ineffective, trial of toradol started per pulm rec, flexeril 5mg PO. pain improved and pt discharged on diovan, steroid taper, flexiril, and furosemide 40 BID. Date of Discharge: 12/02/18 Minutes to complete discharge: 35 Discharge Summary Problems reviewed: Yes Reason For Visit: OBSTRUCTIVE CHRONIC BRONCHITIS WITH EXACERBATION Condition: Improved - Instructions Diet, Activity, Other Instructions: You came into the ED because of shortness of breath and cough. we took a picture of your chest and it showed no acute pathology. We gave you water pills for your lung congestion and leg swelling . We also gave you steroids and other medications to improve your breathing ; please follow up with your lung doctor Dr Fraire within one week. We did an ultrasound of your heart and it showed that the pressures in the vessels of your lungs are elevated; please follow up with your heart doctor Dr Sorensen within one week. Medications: We have discontinued your Losartan 100mg and your Lasix 40mg Daily We have started you on Valsartan 80mg TWICE a Day We have started you on Lasix (Furosemide) 40mg TWICE a Day. We have started you on Flexeril 5 mg as needed for your muscle spasms. Please resume you other medications as prescribed. Because high dose steroids you were taking here, we will be discharging you on a taper: Prednisone 40mg ONCE a day (12/03/18 - 12/05/18) Please take FOUR 10mg tablets each day during these days Prednisone 30mg ONCE a day (12/06/18- 12/08/18) Please take THREE 10mg tablets each day during these days Prednisone 20mg ONCE a day (12/09/18- 12/11/18) Please take TWO 10mg tablets each day during these days Prednisone 10mg ONCE a day (12/12/18- 12/14/18) Please take ONE 10mg tablets each day during these days Prednisone 5mg ONCE a day (12/15/18-12/17/18) Please take ONE 5 mg tablets each day during these days You were evaluated in the hospital to not require supplemental oxygen at rest or with activity. Follow up: Please follow up with your primary care physician Dr Mcnamara within one week. Please follow up with pulmonary Dr Fraire within one week. Please Discuss having a sleep study with Dr. Fraire. Please follow up with cardiology Dr Sorensen within one week. If you begin to experience worsening chest pain, shortness of breath, worsening cough with foul smelling sputum, fevers, or bleeding please return to the emergency room immediately. Referrals: John Fraire MD [Staff Physician] - 1 Week Sotero Sorensen MD [Staff Physician] - 1 Week Princess Mcnamara MD [Primary Care Provider] - 1 Week Disposition: HOME - Home Medications Comprehensive Discharge Medication List: Ambulatory Orders Atorvastatin Ca [Lipitor] 80 mg PO HS 02/12/15 Albuterol 0.083% Nebulizer Basilia [Ventolin 0.083% Nebulizer Soln -] 1 amp NEB Q4HPO #120 amp 02/21/15 Lorazepam 0.5 mg PO DAILY PRN 02/12/17 Albuterol Sulfate Inhaler - [Ventolin HFA Inhaler -] 2 inh PO Q4H 11/28/18 Benzonatate [Tessalon Perle -] 100 mg PO TID 11/28/18 Budesonide/Formeterol Fumarate [SYMBICORT 160/4.5mcg -] 2 inh PO BID 11/28/18 Cholecalciferol (Vitamin D3) [Vitamin D -] 1,000 unit PO DAILY 11/28/18 Furosemide 40 mg PO DAILY 11/28/18 Metoprolol Succinate 25 mg PO DAILY 11/28/18 Omeprazole/Sodium Bicarbonate [Omeprazole-Bicarb 20-1,680 Pkt] 1 each PO DAILY 11/28/18 Sertraline HCl 25 mg PO DAILY 11/28/18 Triamcinolone 0.1% Ointment [Aristocort 0.1% Ointment -] 1 applic TP DAILY 11/28 Cyclobenzaprine HCl 5 mg PO HS PRN #3 tablet 12/02/18 Furosemide [Lasix -] 40 mg PO BID@0600,1400 #60 tablet 12/02/18 Prednisone 5 mg PO DAILY #3 tablet 12/02/18 Prednisone 10 mg PO DAILY #30 tablet 12/02/18 Valsartan [Diovan] 80 mg PO BID #60 tablet 12/02/18 Problem List - Problems (1) Acute exacerbation of CHF (congestive heart failure) Code(s): I50.9 - HEART FAILURE, UNSPECIFIED (2) COPD exacerbation Code(s): J44.1 - CHRONIC OBSTRUCTIVE PULMONARY DISEASE W (ACUTE) EXACERBATION (3) Anxiety Code(s): F41.9 - ANXIETY DISORDER, UNSPECIFIED (4) COPD (chronic obstructive pulmonary disease) Code(s): J44.9 - CHRONIC OBSTRUCTIVE PULMONARY DISEASE, UNSPECIFIED Qualifiers: COPD type: unspecified COPD Qualified Code(s): J44.9 - Chronic obstructive pulmonary disease, unspecified (5) HLD (hyperlipidemia) Code(s): E78.5 - HYPERLIPIDEMIA, UNSPECIFIED (6) HTN (hypertension) Code(s): I10 - ESSENTIAL (PRIMARY) HYPERTENSION (7) Obesity Code(s): E66.9 - OBESITY, UNSPECIFIED Qualifiers: Obesity type: due to excess calories Obesity classification: adult class 2 (BMI 35 - 39.9) Serious obesity comorbidity presence: with serious comorbidity Body mass index: BMI 36.0-36.9 Qualified Code(s): E66.01 - Morbid (severe) obesity due to excess calories; Z68.36 - Body mass index (BMI) 36.0-36.9, adult (8) Pulmonary vascular congestion Code(s): R09.89 - OTH SYMPTOMS AND SIGNS INVOLVING THE CIRC AND RESP SYSTEMS (9) Pleural effusion Code(s): J90 - PLEURAL EFFUSION, NOT ELSEWHERE CLASSIFIED (10) SOB (shortness of breath) Code(s): R06.02 - SHORTNESS OF BREATH This patient is new to me today: No Emergency Visit: Yes ED Registration Date: 11/27/18 Care time: The patient presented to the Emergency Department on the above date and was hospitalized for further evaluation of their emergent condition. Critical Care patient: No - Discharge Referral Referred to [facility] No ATTENDING PHYSICIAN STATEMENT I saw and evaluated the patient. I reviewed the resident's note and discussed the case with the resident. I agree with the resident's findings and plan as documented. SUBJECTIVE: OBJECTIVE: ASSESSMENT AND PLAN:
[2018-12-02] MEDS ORDERED: CYCLOBENZAPRINE HCL 5 MG TABLET PO SCH (22:00)
== END 2018-12-02 18:43 | disposition home or self-care (01) | DRG 291 ==
LOC: JER 16:23 → JERBED 20:51 → J6S 11-29 17:05
PROVIDERS: ADMIT Internal Medicine; ATTEND Internal Medicine
DX: I11.0 Hypertensive heart disease with heart failure (principal); J96.01 Acute respiratory failure with hypoxia; J44.1 Chronic obstructive pulmonary disease with (acute) exacerbation; I50.33 Acute on chronic diastolic (congestive) heart failure; E78.5 Hyperlipidemia, unspecified; E66.9 Obesity, unspecified; Z68.32 Body mass index [BMI] 32.0-32.9, adult
CPT/HCPCS: 36415; 71045-TC-FY; 80048; 80053; 82550; 82553; 82962; 83735; 83880; 84484; 85025; 85027; 87633; 93005; 93010; 93306-TC; 94640; 94761; 99284-25; J1644

== ENCOUNTER → 2020-10-26 | Day surgery (SDC) | payer OTHER, MEDICARE | END | disposition home or self-care (01) | LOC: FMAMMOTONE 08:37 | PROVIDERS: ATTEND Internal Medicine | PROC: 0HBT3ZX Excision of Right Breast, Percutaneous Approach, Diagnostic (ICD-10-PCS; principal; 2020-10-26) | DX: D24.1 Benign neoplasm of right breast (principal); N64.89 Other specified disorders of breast; R92.0 Mammographic microcalcification found on diagnostic imaging of breast | CPT/HCPCS: 19081; 76098-TC-FY; 87899; A4648 ==

== ENCOUNTER 2020-11-02 09:40 | Inpatient (IN) | payer OTHER, MEDICARE ==
[2020-11-02] MEDS ORDERED: AZITHROMYCIN 250 MG TABLET PO ONE (10:14)
[2020-11-02] MEDS ORDERED: predniSONE 20 MG TABLET (UD) PO ONE (10:14)
[2020-11-02] MEDS ORDERED: AMOX TR/POT CLAV 875MG/125MG TABLETS (FP) PO ONE (10:16)
[2020-11-02] MEDS ORDERED: AMOX TR/POT CLAV 875MG/125MG TABLETS (FP) ONE (10:46)
[2020-11-02] MEDS ORDERED: predniSONE 20 MG TABLET (UD) ONE (10:46)
[2020-11-02 10:55] LABS: BASO % 0.4 % (0-2.0); EOS % 2.6 % (0-4.5); HEMATOCRIT 34.7 % (32.4-45.2); LYMPH % 13.5 % (8-40); MCH 32.3 pg (25.7-33.7); MCHC 34.6 g/dl (32.0-36.0); MEAN CELL VOLUME 93.5 fl (80-96); MEAN PLT VOLUME 7.7 fl (7.5-11.1); MONO % 8.1 % (3.8-10.2); NEUT % 75.4 % (42.8-82.8); PLATELET COUNT 268 10^3/uL (134-434); RBC 3.72 M/mm3 (3.60-5.2); RDW 13.7 % (11.6-15.6); WHITE BLOOD COUNT 9.5 K/mm3 (4.0-10.0)
[2020-11-02 11:10] LABS: INR 0.93 (0.83-1.09); PROTHROMBIN TIME (PATIENT) 11.5 SEC (9.7-13.0)
[2020-11-02 11:13] LABS: ACTIVATED PTT 29.1 SECONDS (25.2-36.5)
[2020-11-02 11:18] LABS: CALCIUM 9.5 mg/dL (8.5-10.1)
[2020-11-02 11:19] LABS: ALBUMIN 3.4 g/dl (3.4-5.0); BLOOD UREA NITROGEN 17.8 mg/dL (7-18)
[2020-11-02 11:21] LABS: CREATININE 0.9 mg/dL (0.55-1.3)
[2020-11-02 11:22] LABS: BILIRUBIN,TOTAL 0.4 mg/dL (0.2-1); TOT PROT 6.6 g/dl (6.4-8.2)
[2020-11-02] MEDS ORDERED: ACETAMINOPHEN 325 MG TABLET (FP) PO PRN (13:36)
[2020-11-02] MEDS: ALBUTEROL SO4 2.5/IPRATROPIUM 0.5 INH SOL 3 ML VIAL.NEB. NEB SCH ×2 (15:55→20:00)
[2020-11-02] MEDS: guaiFENesin/D-METHORPHAN HB 10 ML UNIT-DOSE CUPS PO PRN ×2 (16:39→23:22)
[2020-11-02] MEDS: FUROSEMIDE 40 MG/4 ML INJECTABLE VIAL IVPUSH SCH (16:40)
[2020-11-02 18:36] VITALS: BMI 32.1
[2020-11-02] MEDS: ATORVASTATIN CA 80 MG TABLET (FP) PO SCH (23:22)
[2020-11-03] MEDS: guaiFENesin/D-METHORPHAN HB 10 ML UNIT-DOSE CUPS PO PRN (06:51)
[2020-11-03] MEDS: ALBUTEROL SO4 2.5/IPRATROPIUM 0.5 INH SOL 3 ML VIAL.NEB. NEB SCH ×4 (07:40→20:10)
[2020-11-03 09:10] LABS: HEMATOCRIT 35.1 % (32.4-45.2); HEMOGLOBIN 11.9 GM/dL (10.7-15.3); MCH 31.4 pg (25.7-33.7); MCHC 33.7 g/dl (32.0-36.0); MEAN CELL VOLUME 93.1 fl (80-96); MEAN PLT VOLUME 7.4 fl (7.5-11.1); PLATELET COUNT 235 10^3/uL (134-434); RBC 3.77 M/mm3 (3.60-5.2); RDW 13.4 % (11.6-15.6)
[2020-11-03 09:32] LABS: ALBUMIN 3.3 g/dl (3.4-5.0); CALCIUM 8.5 mg/dL (8.5-10.1)
[2020-11-03 09:33] LABS: BLOOD UREA NITROGEN 23.3 mg/dL (7-18); MAGNESIUM 1.8 mg/dL (1.8-2.4)
[2020-11-03 09:35] LABS: CREATININE 0.9 mg/dL (0.55-1.3); PHOSPHOROUS 3.8 mg/dL (2.5-4.9)
[2020-11-03 09:37] LABS: BILIRUBIN,TOTAL 0.6 mg/dL (0.2-1); TOT PROT 6.4 g/dl (6.4-8.2)
[2020-11-03] MEDS ORDERED: methylPREDNISolone NA SUCC 40 MG/1 ML VIAL IVPUSH ONE (09:45)
[2020-11-03] MEDS: ENOXAPARIN NA (PORCINE) 40 MG/0.4 ML DISP.SYRIN SQ SCH (09:53)
[2020-11-03] MEDS: FUROSEMIDE 40 MG/4 ML INJECTABLE VIAL IVPUSH SCH (09:54)
[2020-11-03] MEDS: amLODIPine BESYLATE 5 MG TABLET (FP) PO SCH (09:54)
[2020-11-03] MEDS: AZITHROMYCIN IVPB 500 MG/250 ML BAG IVPB SCH (09:55)
[2020-11-03] MEDS ORDERED: predniSONE 20 MG TABLET (UD) PO SCH (10:00)
[2020-11-03] MEDS ORDERED: ALBUTEROL SO4 2.5/IPRATROPIUM 0.5 INH SOL 3 ML VIAL.NEB. NEB STA (10:33)
[2020-11-03] MEDS: methylPREDNISolone NA SUCC 40 MG/1 ML VIAL IVPUSH SCH ×2 (14:54→21:52)
[2020-11-03] MEDS: ATORVASTATIN CA 80 MG TABLET (FP) PO SCH (21:52)
[2020-11-03] MEDS: BUDESONIDE/FORMETEROL FUMARATE 160/4.5 mcg INHALER IH SCH (21:56)
[2020-11-04] MEDS: methylPREDNISolone NA SUCC 40 MG/1 ML VIAL IVPUSH SCH ×4 (02:20→21:32)
[2020-11-04] MEDS: ALBUTEROL SO4 2.5/IPRATROPIUM 0.5 INH SOL 3 ML VIAL.NEB. NEB SCH ×4 (08:00→20:25)
[2020-11-04] MEDS: AZITHROMYCIN IVPB 500 MG/250 ML BAG IVPB SCH (09:47)
[2020-11-04] MEDS: ENOXAPARIN NA (PORCINE) 40 MG/0.4 ML DISP.SYRIN SQ SCH (09:52)
[2020-11-04] MEDS: FUROSEMIDE 40 MG/4 ML INJECTABLE VIAL IVPUSH SCH (09:52)
[2020-11-04] MEDS: BUDESONIDE/FORMETEROL FUMARATE 160/4.5 mcg INHALER IH SCH ×2 (09:52→21:33)
[2020-11-04] MEDS: amLODIPine BESYLATE 5 MG TABLET (FP) PO SCH (10:15)
[2020-11-04] MEDS: guaiFENesin/D-METHORPHAN HB 10 ML UNIT-DOSE CUPS PO PRN (10:40)
[2020-11-04] MEDS: MELATONIN 1 MG TABLET PO SCH (21:33)
[2020-11-04] MEDS: ATORVASTATIN CA 80 MG TABLET (FP) PO SCH (21:33)
[2020-11-05] MEDS: methylPREDNISolone NA SUCC 40 MG/1 ML VIAL IVPUSH SCH ×4 (04:09→17:56)
[2020-11-05] MEDS: ALBUTEROL SO4 2.5/IPRATROPIUM 0.5 INH SOL 3 ML VIAL.NEB. NEB SCH ×4 (08:50→20:05)
[2020-11-05] MEDS ORDERED: PT OWN MED DRAWER 7, Y5N ONE (09:21)
[2020-11-05] MEDS: ENOXAPARIN NA (PORCINE) 40 MG/0.4 ML DISP.SYRIN SQ SCH (09:31)
[2020-11-05] MEDS: amLODIPine BESYLATE 5 MG TABLET (FP) PO SCH (09:32)
[2020-11-05] MEDS: FUROSEMIDE 40 MG/4 ML INJECTABLE VIAL IVPUSH SCH (09:32)
[2020-11-05] MEDS: AZITHROMYCIN IVPB 500 MG/250 ML BAG IVPB SCH (09:33)
[2020-11-05] MEDS: PANTOPRAZOLE 40 MG TABLET PO SCH (09:34)
[2020-11-05] MEDS: BUDESONIDE/FORMETEROL FUMARATE 160/4.5 mcg INHALER IH SCH ×2 (09:53→21:44)
[2020-11-05] MEDS: ATORVASTATIN CA 80 MG TABLET (FP) PO SCH (21:44)
[2020-11-05] MEDS: MELATONIN 1 MG TABLET PO SCH (21:45)
[2020-11-06] MEDS: methylPREDNISolone NA SUCC 40 MG/1 ML VIAL IVPUSH SCH ×3 (02:20→17:49)
[2020-11-06] MEDS: guaiFENesin/D-METHORPHAN HB 10 ML UNIT-DOSE CUPS PO PRN (03:34)
[2020-11-06] MEDS: ALBUTEROL SO4 2.5/IPRATROPIUM 0.5 INH SOL 3 ML VIAL.NEB. NEB SCH ×4 (08:56→19:35)
[2020-11-06] MEDS: AZITHROMYCIN IVPB 500 MG/250 ML BAG IVPB SCH (09:32)
[2020-11-06] MEDS: FUROSEMIDE 40 MG/4 ML INJECTABLE VIAL IVPUSH SCH (09:33)
[2020-11-06] MEDS: ENOXAPARIN NA (PORCINE) 40 MG/0.4 ML DISP.SYRIN SQ SCH (09:33)
[2020-11-06] MEDS: PANTOPRAZOLE 40 MG TABLET PO SCH (09:33)
[2020-11-06] MEDS: BUDESONIDE/FORMETEROL FUMARATE 160/4.5 mcg INHALER IH SCH ×2 (09:33→22:12)
[2020-11-06] MEDS: amLODIPine BESYLATE 5 MG TABLET (FP) PO SCH (09:33)
[2020-11-06 15:54] LABS: HEMATOCRIT 34.7 % (32.4-45.2); HEMOGLOBIN 11.7 GM/dL (10.7-15.3); MCH 32.1 pg (25.7-33.7); MCHC 33.8 g/dl (32.0-36.0); MEAN CELL VOLUME 95.1 fl (80-96); MEAN PLT VOLUME 8.1 fl (7.5-11.1); PLATELET COUNT 297 10^3/uL (134-434); RBC 3.65 M/mm3 (3.60-5.2); RDW 13.4 % (11.6-15.6); WHITE BLOOD COUNT 12.4 K/mm3 (4.0-10.0)
[2020-11-06 16:20] LABS: BLOOD UREA NITROGEN 36.3 mg/dL (7-18); CALCIUM 8.8 mg/dL (8.5-10.1)
[2020-11-06 16:21] LABS: ALBUMIN 3.3 g/dl (3.4-5.0); MAGNESIUM 2.3 mg/dL (1.8-2.4)
[2020-11-06 16:24] LABS: CREATININE 1.1 mg/dL (0.55-1.3)
[2020-11-06 16:25] LABS: BILIRUBIN,TOTAL 0.2 mg/dL (0.2-1); TOT PROT 6.6 g/dl (6.4-8.2)
[2020-11-06 16:39] LABS: PLATELET ESTIMATE ADEQUATE
[2020-11-06] MEDS: ATORVASTATIN CA 80 MG TABLET (FP) PO SCH (22:11)
[2020-11-06] MEDS: MELATONIN 1 MG TABLET PO SCH (22:11)
[2020-11-07] MEDS: guaiFENesin/D-METHORPHAN HB 10 ML UNIT-DOSE CUPS PO PRN (00:40)
[2020-11-07] MEDS: methylPREDNISolone NA SUCC 40 MG/1 ML VIAL IVPUSH SCH ×3 (01:09→17:39)
[2020-11-07] MEDS: ALBUTEROL SO4 2.5/IPRATROPIUM 0.5 INH SOL 3 ML VIAL.NEB. NEB SCH ×4 (08:30→20:15)
[2020-11-07 09:01] LABS: HEMATOCRIT 36.3 % (32.4-45.2); HEMOGLOBIN 12.3 GM/dL (10.7-15.3); MCH 31.9 pg (25.7-33.7); MCHC 33.8 g/dl (32.0-36.0); MEAN CELL VOLUME 94.5 fl (80-96); MEAN PLT VOLUME 8.1 fl (7.5-11.1); PLATELET COUNT 305 10^3/uL (134-434); RBC 3.84 M/mm3 (3.60-5.2); RDW 13.8 % (11.6-15.6); WHITE BLOOD COUNT 12.3 K/mm3 (4.0-10.0)
[2020-11-07 09:23] LABS: CALCIUM 8.6 mg/dL (8.5-10.1)
[2020-11-07 09:24] LABS: ALBUMIN 3.2 g/dl (3.4-5.0); BLOOD UREA NITROGEN 29.1 mg/dL (7-18); MAGNESIUM 2.6 mg/dL (1.8-2.4)
[2020-11-07 09:27] LABS: CREATININE 0.8 mg/dL (0.55-1.3)
[2020-11-07 09:29] LABS: BILIRUBIN,TOTAL 0.4 mg/dL (0.2-1); TOT PROT 6.6 g/dl (6.4-8.2)
[2020-11-07] MEDS: PANTOPRAZOLE 40 MG TABLET PO SCH (09:40)
[2020-11-07] MEDS: ISOSORBIDE MONONITRATE 30 MG TAB.SR.24H (FP) PO SCH (09:40)
[2020-11-07] MEDS: POLYETHYLENE GLYCOL (HEALTHYLAX) 3350 17 GM PACKET PO SCH ×3 (09:40→21:31)
[2020-11-07] MEDS: ENOXAPARIN NA (PORCINE) 40 MG/0.4 ML DISP.SYRIN SQ SCH (09:40)
[2020-11-07] MEDS: ASPIRIN 81 MG CHEWABLE TABLETS PO SCH (09:40)
[2020-11-07] MEDS: LORATADINE 10 MG TABLET PO SCH (09:41)
[2020-11-07] MEDS: amLODIPine BESYLATE 5 MG TABLET (FP) PO SCH (09:41)
[2020-11-07] MEDS: SERTRALINE HCL 50 MG TABLET (FP) PO SCH (09:41)
[2020-11-07] MEDS: FUROSEMIDE 40 MG/4 ML INJECTABLE VIAL IVPUSH SCH (09:41)
[2020-11-07] MEDS: metoPROLOL SUCCINATE 25 MG TAB.SR.24H (FP) PO SCH (09:41)
[2020-11-07] MEDS: SENNOSIDES 8.6MG TABLET (FP) PO SCH ×2 (09:41→21:27)
[2020-11-07] MEDS: BUDESONIDE/FORMETEROL FUMARATE 160/4.5 mcg INHALER IH SCH ×2 (09:42→21:35)
[2020-11-07] MEDS: AZITHROMYCIN IVPB 500 MG/250 ML BAG IVPB SCH (09:42)
[2020-11-07 12:18] LABS: ANISOCYTOSIS 0; HELMET CELLS 0; HOWELL-JOLLY BODIES 0; MACROCYTOSIS 0; OVALOCYTE 0; PLATELET ESTIMATE NORMAL; ROULEAU 0; SICKELED CELLS 0; TARGET CELLS 0; TEAR DROP CELLS 0; TOXIC GRANULATION 0
[2020-11-07] MEDS: DOCUSATE SODIUM 100 MG CAPSULE (FP) PO SCH ×2 (15:00→21:27)
[2020-11-07] MEDS: MELATONIN 1 MG TABLET PO SCH (21:27)
[2020-11-07] MEDS: ATORVASTATIN CA 80 MG TABLET (FP) PO SCH (21:27)
[2020-11-08] MEDS: methylPREDNISolone NA SUCC 40 MG/1 ML VIAL IVPUSH SCH ×3 (01:17→17:35)
[2020-11-08] MEDS: DOCUSATE SODIUM 100 MG CAPSULE (FP) PO SCH ×3 (06:10→21:35)
[2020-11-08 08:26] LABS: HEMATOCRIT 33.9 % (32.4-45.2); HEMOGLOBIN 11.4 GM/dL (10.7-15.3); MCH 31.8 pg (25.7-33.7); MCHC 33.7 g/dl (32.0-36.0); MEAN CELL VOLUME 94.6 fl (80-96); PLATELET COUNT 283 10^3/uL (134-434); RBC 3.58 M/mm3 (3.60-5.2); RDW 13.4 % (11.6-15.6); WHITE BLOOD COUNT 11.5 K/mm3 (4.0-10.0)
[2020-11-08] MEDS: ALBUTEROL SO4 2.5/IPRATROPIUM 0.5 INH SOL 3 ML VIAL.NEB. NEB SCH ×4 (08:28→20:40)
[2020-11-08 08:46] LABS: CALCIUM 8.4 mg/dL (8.5-10.1)
[2020-11-08 08:47] LABS: BLOOD UREA NITROGEN 31.6 mg/dL (7-18); MAGNESIUM 2.7 mg/dL (1.8-2.4)
[2020-11-08 08:50] LABS: CREATININE 0.8 mg/dL (0.55-1.3)
[2020-11-08 08:51] LABS: BILIRUBIN,TOTAL 0.3 mg/dL (0.2-1)
[2020-11-08 09:17] LABS: ANISOCYTOSIS 0; HELMET CELLS 0; HOWELL-JOLLY BODIES 0; MACROCYTOSIS 0; OVALOCYTE 0; PLATELET ESTIMATE NORMAL; ROULEAU 0; SICKELED CELLS 0; TARGET CELLS 0; TEAR DROP CELLS 0; TOXIC GRANULATION 0
[2020-11-08] MEDS: PANTOPRAZOLE 40 MG TABLET PO SCH (09:50)
[2020-11-08] MEDS: SERTRALINE HCL 50 MG TABLET (FP) PO SCH (09:50)
[2020-11-08] MEDS: metoPROLOL SUCCINATE 25 MG TAB.SR.24H (FP) PO SCH (09:50)
[2020-11-08] MEDS: amLODIPine BESYLATE 5 MG TABLET (FP) PO SCH (09:50)
[2020-11-08] MEDS: ASPIRIN 81 MG CHEWABLE TABLETS PO SCH (09:50)
[2020-11-08] MEDS: LORATADINE 10 MG TABLET PO SCH (09:50)
[2020-11-08] MEDS: SENNOSIDES 8.6MG TABLET (FP) PO SCH ×2 (09:50→21:35)
[2020-11-08] MEDS: ISOSORBIDE MONONITRATE 30 MG TAB.SR.24H (FP) PO SCH (09:50)
[2020-11-08] MEDS: FUROSEMIDE 40 MG/4 ML INJECTABLE VIAL IVPUSH SCH (09:51)
[2020-11-08] MEDS: ENOXAPARIN NA (PORCINE) 40 MG/0.4 ML DISP.SYRIN SQ SCH (09:51)
[2020-11-08] MEDS: AZITHROMYCIN IVPB 500 MG/250 ML BAG IVPB SCH (09:52)
[2020-11-08] MEDS: BUDESONIDE/FORMETEROL FUMARATE 160/4.5 mcg INHALER IH SCH ×2 (09:53→21:35)
[2020-11-08] MEDS: POLYETHYLENE GLYCOL (HEALTHYLAX) 3350 17 GM PACKET PO SCH ×2 (10:05→21:35)
[2020-11-08] MEDS: ATORVASTATIN CA 80 MG TABLET (FP) PO SCH (21:35)
[2020-11-08] MEDS: MELATONIN 1 MG TABLET PO SCH (21:35)
[2020-11-08] MEDS: guaiFENesin/CODEINE 10 ML UNIT-DOSE CUPS PO PRN (21:36)
[2020-11-09] MEDS: methylPREDNISolone NA SUCC 40 MG/1 ML VIAL IVPUSH SCH ×3 (01:37→17:05)
[2020-11-09] MEDS: DOCUSATE SODIUM 100 MG CAPSULE (FP) PO SCH ×3 (05:52→21:33)
[2020-11-09] MEDS: ALBUTEROL SO4 2.5/IPRATROPIUM 0.5 INH SOL 3 ML VIAL.NEB. NEB SCH ×4 (07:30→20:00)
[2020-11-09 08:27] LABS: HEMATOCRIT 34.2 % (32.4-45.2); HEMOGLOBIN 11.7 GM/dL (10.7-15.3); MCH 32.4 pg (25.7-33.7); MEAN CELL VOLUME 95.3 fl (80-96); MEAN PLT VOLUME 7.8 fl (7.5-11.1); PLATELET COUNT 266 10^3/uL (134-434); RBC 3.59 M/mm3 (3.60-5.2); RDW 13.6 % (11.6-15.6)
[2020-11-09 08:57] LABS: ALBUMIN 2.9 g/dl (3.4-5.0); CALCIUM 8.3 mg/dL (8.5-10.1)
[2020-11-09 08:58] LABS: BLOOD UREA NITROGEN 33.2 mg/dL (7-18); MAGNESIUM 2.6 mg/dL (1.8-2.4)
[2020-11-09 09:01] LABS: CREATININE 0.9 mg/dL (0.55-1.3)
[2020-11-09 09:02] LABS: BILIRUBIN,TOTAL 0.7 mg/dL (0.2-1); TOT PROT 5.7 g/dl (6.4-8.2)
[2020-11-09] MEDS: AZITHROMYCIN IVPB 500 MG/250 ML BAG IVPB SCH (09:15)
[2020-11-09] MEDS: FUROSEMIDE 40 MG/4 ML INJECTABLE VIAL IVPUSH SCH (09:17)
[2020-11-09] MEDS: ENOXAPARIN NA (PORCINE) 40 MG/0.4 ML DISP.SYRIN SQ SCH (09:17)
[2020-11-09] MEDS: amLODIPine BESYLATE 5 MG TABLET (FP) PO SCH (09:18)
[2020-11-09] MEDS: LORATADINE 10 MG TABLET PO SCH (09:18)
[2020-11-09] MEDS: SENNOSIDES 8.6MG TABLET (FP) PO SCH ×2 (09:18→21:33)
[2020-11-09] MEDS: PANTOPRAZOLE 40 MG TABLET PO SCH (09:18)
[2020-11-09] MEDS: SERTRALINE HCL 50 MG TABLET (FP) PO SCH (09:18)
[2020-11-09] MEDS: metoPROLOL SUCCINATE 25 MG TAB.SR.24H (FP) PO SCH (09:18)
[2020-11-09] MEDS: ASPIRIN 81 MG CHEWABLE TABLETS PO SCH (09:18)
[2020-11-09] MEDS: ISOSORBIDE MONONITRATE 30 MG TAB.SR.24H (FP) PO SCH (09:18)
[2020-11-09] MEDS: POLYETHYLENE GLYCOL (HEALTHYLAX) 3350 17 GM PACKET PO SCH ×2 (09:19→21:33)
[2020-11-09] MEDS: BUDESONIDE/FORMETEROL FUMARATE 160/4.5 mcg INHALER IH SCH ×2 (09:20→21:33)
[2020-11-09] MEDS: guaiFENesin/CODEINE 10 ML UNIT-DOSE CUPS PO PRN (09:30)
[2020-11-09 09:37] LABS: ANISOCYTOSIS 0; HELMET CELLS 0; HOWELL-JOLLY BODIES 0; MACROCYTOSIS 0; OVALOCYTE 0; PLATELET ESTIMATE NORMAL; ROULEAU 0; SICKELED CELLS 0; TARGET CELLS 0; TEAR DROP CELLS 0; TOXIC GRANULATION 0
[2020-11-09] MEDS: guaiFENesin/CODEINE 10 ML UNIT-DOSE CUPS PO SCH ×2 (13:17→21:33)
[2020-11-09] MEDS: ATORVASTATIN CA 80 MG TABLET (FP) PO SCH (21:33)
[2020-11-09] MEDS: MELATONIN 1 MG TABLET PO SCH (21:33)
[2020-11-10] MEDS: methylPREDNISolone NA SUCC 40 MG/1 ML VIAL IVPUSH SCH ×3 (02:40→21:13)
[2020-11-10] MEDS: DOCUSATE SODIUM 100 MG CAPSULE (FP) PO SCH ×3 (06:38→21:13)
[2020-11-10] MEDS: guaiFENesin/CODEINE 10 ML UNIT-DOSE CUPS PO SCH ×3 (06:38→21:12)
[2020-11-10 07:41] LABS: HEMATOCRIT 33.6 % (32.4-45.2); HEMOGLOBIN 11.3 GM/dL (10.7-15.3); MCHC 33.6 g/dl (32.0-36.0); MEAN CELL VOLUME 95.2 fl (80-96); PLATELET COUNT 265 10^3/uL (134-434); RBC 3.53 M/mm3 (3.60-5.2); RDW 13.4 % (11.6-15.6); WHITE BLOOD COUNT 15.5 K/mm3 (4.0-10.0)
[2020-11-10] MEDS: ALBUTEROL SO4 2.5/IPRATROPIUM 0.5 INH SOL 3 ML VIAL.NEB. NEB SCH ×4 (07:45→20:17)
[2020-11-10 07:50] LABS: ALBUMIN 2.8 g/dl (3.4-5.0); BLOOD UREA NITROGEN 34.4 mg/dL (7-18); CALCIUM 8.3 mg/dL (8.5-10.1); MAGNESIUM 2.7 mg/dL (1.8-2.4)
[2020-11-10 07:54] LABS: BILIRUBIN,TOTAL 0.3 mg/dL (0.2-1)
[2020-11-10 07:55] LABS: TOT PROT 5.5 g/dl (6.4-8.2)
[2020-11-10 10:03] LABS: ANISOCYTOSIS 0; MACROCYTOSIS 0; PLATELET ESTIMATE NORMAL
[2020-11-10] MEDS: SENNOSIDES 8.6MG TABLET (FP) PO SCH ×2 (10:27→21:13)
[2020-11-10] MEDS: ASPIRIN 81 MG CHEWABLE TABLETS PO SCH (10:27)
[2020-11-10] MEDS: SERTRALINE HCL 50 MG TABLET (FP) PO SCH (10:27)
[2020-11-10] MEDS: LORATADINE 10 MG TABLET PO SCH (10:27)
[2020-11-10] MEDS: FUROSEMIDE 40 MG/4 ML INJECTABLE VIAL IVPUSH SCH (10:27)
[2020-11-10] MEDS: ISOSORBIDE MONONITRATE 30 MG TAB.SR.24H (FP) PO SCH (10:27)
[2020-11-10] MEDS: amLODIPine BESYLATE 5 MG TABLET (FP) PO SCH (10:27)
[2020-11-10] MEDS: metoPROLOL SUCCINATE 25 MG TAB.SR.24H (FP) PO SCH (10:27)
[2020-11-10] MEDS: PANTOPRAZOLE 40 MG TABLET PO SCH (10:27)
[2020-11-10] MEDS: BUDESONIDE/FORMETEROL FUMARATE 160/4.5 mcg INHALER IH SCH ×2 (10:28→21:16)
[2020-11-10] MEDS: POLYETHYLENE GLYCOL (HEALTHYLAX) 3350 17 GM PACKET PO SCH ×2 (10:28→21:13)
[2020-11-10] MEDS: ENOXAPARIN NA (PORCINE) 40 MG/0.4 ML DISP.SYRIN SQ SCH (10:29)
[2020-11-10] MEDS: AZITHROMYCIN IVPB 500 MG/250 ML BAG IVPB SCH (10:29)
[2020-11-10] MEDS: MELATONIN 1 MG TABLET PO SCH (21:13)
[2020-11-10] MEDS: ATORVASTATIN CA 80 MG TABLET (FP) PO SCH (21:13)
[2020-11-11] MEDS: DOCUSATE SODIUM 100 MG CAPSULE (FP) PO SCH ×3 (05:05→21:20)
[2020-11-11] MEDS: guaiFENesin/CODEINE 10 ML UNIT-DOSE CUPS PO SCH (05:05)
[2020-11-11] MEDS: ALBUTEROL SO4 2.5/IPRATROPIUM 0.5 INH SOL 3 ML VIAL.NEB. NEB SCH ×3 (08:30→16:20)
[2020-11-11] MEDS: ENOXAPARIN NA (PORCINE) 40 MG/0.4 ML DISP.SYRIN SQ SCH (10:15)
[2020-11-11] MEDS: ASPIRIN 81 MG CHEWABLE TABLETS PO SCH (10:15)
[2020-11-11] MEDS: FUROSEMIDE 40 MG/4 ML INJECTABLE VIAL IVPUSH SCH (10:16)
[2020-11-11] MEDS: methylPREDNISolone NA SUCC 40 MG/1 ML VIAL IVPUSH SCH ×2 (10:16→21:16)
[2020-11-11] MEDS: LORATADINE 10 MG TABLET PO SCH (10:16)
[2020-11-11] MEDS: PANTOPRAZOLE 40 MG TABLET PO SCH (10:16)
[2020-11-11] MEDS: SERTRALINE HCL 50 MG TABLET (FP) PO SCH (10:16)
[2020-11-11] MEDS: ISOSORBIDE MONONITRATE 30 MG TAB.SR.24H (FP) PO SCH (10:16)
[2020-11-11] MEDS: metoPROLOL SUCCINATE 25 MG TAB.SR.24H (FP) PO SCH (10:16)
[2020-11-11] MEDS: amLODIPine BESYLATE 5 MG TABLET (FP) PO SCH (10:17)
[2020-11-11] MEDS: AZITHROMYCIN IVPB 500 MG/250 ML BAG IVPB SCH (10:19)
[2020-11-11] MEDS: SENNOSIDES 8.6MG TABLET (FP) PO SCH ×2 (10:24→21:20)
[2020-11-11] MEDS: POLYETHYLENE GLYCOL (HEALTHYLAX) 3350 17 GM PACKET PO SCH ×2 (10:24→21:20)
[2020-11-11] MEDS: BUDESONIDE/FORMETEROL FUMARATE 160/4.5 mcg INHALER IH SCH ×2 (11:11→21:21)
[2020-11-11] MEDS: SODIUM CHLORIDE FOR INHALATION 3 ML VIAL.NEB IH PRN (19:44)
[2020-11-11] MEDS: ATORVASTATIN CA 80 MG TABLET (FP) PO SCH (21:20)
[2020-11-11] MEDS: MELATONIN 1 MG TABLET PO SCH (21:20)
[2020-11-12] MEDS: guaiFENesin/CODEINE 5 ML UNIT-DOSE CUPS PO PRN (02:22)
[2020-11-12] MEDS: SODIUM CHLORIDE FOR INHALATION 3 ML VIAL.NEB IH PRN (04:03)
[2020-11-12] MEDS: DOCUSATE SODIUM 100 MG CAPSULE (FP) PO SCH ×3 (06:20→21:05)
[2020-11-12] MEDS: ALBUTEROL SO4 2.5/IPRATROPIUM 0.5 INH SOL 3 ML VIAL.NEB. NEB SCH ×5 (07:10→21:08)
[2020-11-12 08:58] LABS: BLOOD UREA NITROGEN 31.5 mg/dL (7-18); CALCIUM 8.3 mg/dL (8.5-10.1); MAGNESIUM 2.8 mg/dL (1.8-2.4)
[2020-11-12 09:01] LABS: CREATININE 0.8 mg/dL (0.55-1.3)
[2020-11-12 09:03] LABS: BILIRUBIN,TOTAL 0.5 mg/dL (0.2-1); TOT PROT 6.1 g/dl (6.4-8.2)
[2020-11-12] MEDS: ASPIRIN 81 MG CHEWABLE TABLETS PO SCH (09:09)
[2020-11-12] MEDS: ENOXAPARIN NA (PORCINE) 40 MG/0.4 ML DISP.SYRIN SQ SCH (09:09)
[2020-11-12] MEDS: FUROSEMIDE 40 MG/4 ML INJECTABLE VIAL IVPUSH SCH (09:10)
[2020-11-12] MEDS: metoPROLOL SUCCINATE 25 MG TAB.SR.24H (FP) PO SCH (09:10)
[2020-11-12] MEDS: SERTRALINE HCL 50 MG TABLET (FP) PO SCH (09:10)
[2020-11-12] MEDS: amLODIPine BESYLATE 5 MG TABLET (FP) PO SCH (09:10)
[2020-11-12] MEDS: LORATADINE 10 MG TABLET PO SCH (09:10)
[2020-11-12] MEDS: ISOSORBIDE MONONITRATE 30 MG TAB.SR.24H (FP) PO SCH (09:10)
[2020-11-12] MEDS: PANTOPRAZOLE 40 MG TABLET PO SCH (09:10)
[2020-11-12] MEDS: methylPREDNISolone NA SUCC 40 MG/1 ML VIAL IVPUSH SCH ×2 (09:10→21:04)
[2020-11-12 09:12] LABS: HEMATOCRIT 34.6 % (32.4-45.2); HEMOGLOBIN 11.6 GM/dL (10.7-15.3); MCH 31.9 pg (25.7-33.7); MCHC 33.5 g/dl (32.0-36.0); MEAN CELL VOLUME 95.3 fl (80-96); MEAN PLT VOLUME 7.9 fl (7.5-11.1); PLATELET COUNT 297 10^3/uL (134-434); RBC 3.63 M/mm3 (3.60-5.2); RDW 13.7 % (11.6-15.6); WHITE BLOOD COUNT 15.4 K/mm3 (4.0-10.0)
[2020-11-12] MEDS: BUDESONIDE/FORMETEROL FUMARATE 160/4.5 mcg INHALER IH SCH ×2 (09:16→21:06)
[2020-11-12] MEDS: SENNOSIDES 8.6MG TABLET (FP) PO SCH ×2 (09:17→21:05)
[2020-11-12] MEDS: POLYETHYLENE GLYCOL (HEALTHYLAX) 3350 17 GM PACKET PO SCH ×2 (09:17→21:06)
[2020-11-12 10:18] LABS: ANISOCYTOSIS 0; MACROCYTOSIS 0; PLATELET ESTIMATE NORMAL
[2020-11-12] MEDS: ATORVASTATIN CA 80 MG TABLET (FP) PO SCH (21:04)
[2020-11-12] MEDS: MELATONIN 1 MG TABLET PO SCH (21:04)
[2020-11-13] MEDS: guaiFENesin/CODEINE 5 ML UNIT-DOSE CUPS PO PRN ×3 (01:56→21:37)
[2020-11-13] MEDS: DOCUSATE SODIUM 100 MG CAPSULE (FP) PO SCH ×3 (06:08→21:37)
[2020-11-13 07:47] LABS: HEMATOCRIT 31.8 % (32.4-45.2); HEMOGLOBIN 10.8 GM/dL (10.7-15.3); LYMPH % 5.3 % (8-40); MCH 32.2 pg (25.7-33.7); MEAN CELL VOLUME 94.6 fl (80-96); MEAN PLT VOLUME 7.5 fl (7.5-11.1); MONO % 5.1 % (3.8-10.2); NEUT % 89.6 % (42.8-82.8); PLATELET COUNT 231 10^3/uL (134-434); RBC 3.37 M/mm3 (3.60-5.2); WHITE BLOOD COUNT 16.2 K/mm3 (4.0-10.0)
[2020-11-13 08:08] LABS: CALCIUM 7.9 mg/dL (8.5-10.1)
[2020-11-13 08:09] LABS: ALBUMIN 2.7 g/dl (3.4-5.0); BLOOD UREA NITROGEN 38.4 mg/dL (7-18); MAGNESIUM 2.6 mg/dL (1.8-2.4)
[2020-11-13 08:12] LABS: CREATININE 0.9 mg/dL (0.55-1.3)
[2020-11-13 08:13] LABS: BILIRUBIN,TOTAL 0.4 mg/dL (0.2-1); TOT PROT 5.6 g/dl (6.4-8.2)
[2020-11-13] MEDS: ALBUTEROL SO4 2.5/IPRATROPIUM 0.5 INH SOL 3 ML VIAL.NEB. NEB SCH ×4 (08:40→19:30)
[2020-11-13 09:13] LABS: ANISOCYTOSIS 0; MACROCYTOSIS 0; PLATELET ESTIMATE NORMAL
[2020-11-13] MEDS: ENOXAPARIN NA (PORCINE) 40 MG/0.4 ML DISP.SYRIN SQ SCH (10:06)
[2020-11-13] MEDS: LORATADINE 10 MG TABLET PO SCH (10:06)
[2020-11-13] MEDS: ASPIRIN 81 MG CHEWABLE TABLETS PO SCH (10:06)
[2020-11-13] MEDS: FUROSEMIDE 40 MG/4 ML INJECTABLE VIAL IVPUSH SCH (10:06)
[2020-11-13] MEDS: amLODIPine BESYLATE 5 MG TABLET (FP) PO SCH (10:07)
[2020-11-13] MEDS: metoPROLOL SUCCINATE 25 MG TAB.SR.24H (FP) PO SCH (10:07)
[2020-11-13] MEDS: predniSONE 20 MG TABLET (UD) PO SCH (10:07)
[2020-11-13] MEDS: PANTOPRAZOLE 40 MG TABLET PO SCH (10:07)
[2020-11-13] MEDS: SENNOSIDES 8.6MG TABLET (FP) PO SCH ×2 (10:07→21:37)
[2020-11-13] MEDS: SERTRALINE HCL 50 MG TABLET (FP) PO SCH (10:08)
[2020-11-13] MEDS: BUDESONIDE/FORMETEROL FUMARATE 160/4.5 mcg INHALER IH SCH ×2 (10:08→23:11)
[2020-11-13] MEDS: ISOSORBIDE MONONITRATE 30 MG TAB.SR.24H (FP) PO SCH (10:08)
[2020-11-13] MEDS: POLYETHYLENE GLYCOL (HEALTHYLAX) 3350 17 GM PACKET PO SCH ×2 (10:18→21:39)
[2020-11-13] MEDS: ATORVASTATIN CA 80 MG TABLET (FP) PO SCH (21:37)
[2020-11-13] MEDS: MELATONIN 1 MG TABLET PO SCH (21:37)
[2020-11-14] MEDS: DOCUSATE SODIUM 100 MG CAPSULE (FP) PO SCH ×3 (05:09→13:01)
[2020-11-14] MEDS: guaiFENesin/CODEINE 5 ML UNIT-DOSE CUPS PO PRN (05:16)
[2020-11-14] MEDS: ALBUTEROL SO4 2.5/IPRATROPIUM 0.5 INH SOL 3 ML VIAL.NEB. NEB SCH ×3 (07:20→15:01)
[2020-11-14 07:49] LABS: HEMATOCRIT 31.5 % (32.4-45.2); HEMOGLOBIN 10.7 GM/dL (10.7-15.3); MCH 32.3 pg (25.7-33.7); MCHC 33.9 g/dl (32.0-36.0); MEAN CELL VOLUME 95.2 fl (80-96); MEAN PLT VOLUME 7.5 fl (7.5-11.1); PLATELET COUNT 218 10^3/uL (134-434); RBC 3.31 M/mm3 (3.60-5.2); RDW 13.9 % (11.6-15.6); WHITE BLOOD COUNT 16.9 K/mm3 (4.0-10.0)
[2020-11-14 08:08] LABS: ALBUMIN 2.7 g/dl (3.4-5.0); BLOOD UREA NITROGEN 38.1 mg/dL (7-18)
[2020-11-14 08:09] LABS: MAGNESIUM 2.3 mg/dL (1.8-2.4)
[2020-11-14 08:10] LABS: BILIRUBIN,TOTAL 0.5 mg/dL (0.2-1)
[2020-11-14 08:11] LABS: CREATININE 0.8 mg/dL (0.55-1.3)
[2020-11-14 08:12] LABS: TOT PROT 5.4 g/dl (6.4-8.2)
[2020-11-14] MEDS ORDERED: FUROSEMIDE 40 MG TABLET (FP) PO SCH (10:00)
[2020-11-14] MEDS: ASPIRIN 81 MG CHEWABLE TABLETS PO SCH (10:06)
[2020-11-14] MEDS: PANTOPRAZOLE 40 MG TABLET PO SCH (10:06)
[2020-11-14] MEDS: SENNOSIDES 8.6MG TABLET (FP) PO SCH (10:06)
[2020-11-14] MEDS: SERTRALINE HCL 50 MG TABLET (FP) PO SCH (10:06)
[2020-11-14] MEDS: LORATADINE 10 MG TABLET PO SCH (10:06)
[2020-11-14] MEDS: metoPROLOL SUCCINATE 25 MG TAB.SR.24H (FP) PO SCH (10:06)
[2020-11-14] MEDS: predniSONE 20 MG TABLET (UD) PO SCH (10:06)
[2020-11-14] MEDS: ISOSORBIDE MONONITRATE 30 MG TAB.SR.24H (FP) PO SCH (10:06)
[2020-11-14] MEDS: amLODIPine BESYLATE 5 MG TABLET (FP) PO SCH (10:06)
[2020-11-14] MEDS: ENOXAPARIN NA (PORCINE) 40 MG/0.4 ML DISP.SYRIN SQ SCH (10:07)
[2020-11-14] MEDS: POLYETHYLENE GLYCOL (HEALTHYLAX) 3350 17 GM PACKET PO SCH (10:07)
[2020-11-14] MEDS: BUDESONIDE/FORMETEROL FUMARATE 160/4.5 mcg INHALER IH SCH (10:08)
[2020-11-14 10:51] LABS: PLATELET ESTIMATE NORMAL
[2020-11-14 14:18] VITALS: BP 119/52; PULSE 81; TEMP 98.7
== END 2020-11-14 18:25 | disposition home health service (06) | DRG 190 ==
LOC: JER 09:40 → JERBED 11:41 → J7W 14:21
PROVIDERS: ADMIT Internal Medicine; ATTEND Nurse Practitioner Family
DX: J44.1 Chronic obstructive pulmonary disease with (acute) exacerbation (principal); I50.33 Acute on chronic diastolic (congestive) heart failure; J96.11 Chronic respiratory failure with hypoxia; E78.5 Hyperlipidemia, unspecified; R60.0 Localized edema; I11.0 Hypertensive heart disease with heart failure; E11.9 Type 2 diabetes mellitus without complications; J20.9 Acute bronchitis, unspecified; E66.01 Morbid (severe) obesity due to excess calories; Z68.34 Body mass index [BMI] 34.0-34.9, adult; F41.8 Other specified anxiety disorders
CPT/HCPCS: 36415; 71045-TC-FY; 80053; 83735; 83880; 84100; 84484; 85025; 85027; 85610; 85730; 93005; 93010; 94150; 94640; 94761; 97116-GP; 97161-GP; 99285-25; C9803; U0003; U0005

== ENCOUNTER 2022-09-27 08:07 | Observation (INO) | payer OTHER, MEDICARE ==
[2022-09-27] MEDS ORDERED: methylPREDNISolone NA SUCC 125 MG/2 ML VIAL IVPB ONE (08:10)
[2022-09-27] MEDS ORDERED: ALBUTEROL SO4 2.5/IPRATROPIUM 0.5 INH SOL 3 ML VIAL.NEB. NEB ONE ×4 (08:10→08:21)
[2022-09-27] MEDS ORDERED: methylPREDNISolone NA SUCC 125 MG/2 ML VIAL ONE (08:22)
[2022-09-27 09:03] LABS: INR 1.06 (0.83-1.09); PROTHROMBIN TIME (PATIENT) 12.3 SEC (9.7-13.0)
[2022-09-27 09:05] LABS: ACTIVATED PTT 29.1 SECONDS (25.2-36.5)
[2022-09-27 09:08] LABS: HEMATOCRIT 31.2 % (32.4-45.2); HEMOGLOBIN 10.5 G/dL (10.7-15.3); MCH 32.3 pg (25.7-33.7); MCHC 33.6 g/dl (32.0-36.0); MEAN CELL VOLUME 96.2 fl (80-96); MEAN PLT VOLUME 6.8 fl (7.5-11.1); PLATELET COUNT 215.8 10^3/uL (134-434); RBC 3.24 10^6/uL (3.60-5.2); RDW 15.2 % (11.6-15.6); WHITE BLOOD COUNT 7.2 10^3/uL (4.0-10.8)
[2022-09-27 09:11] LABS: PLATELET ESTIMATE ADEQUATE
[2022-09-27 09:14] LABS: ALBUMIN 3.7 g/dl (3.4-5.0); BILIRUBIN,TOTAL 0.5 mg/dl (0.2-1); BLOOD UREA NITROGEN 14.1 mg/dl (7-18); CALCIUM 8.5 mg/dl (8.5-10.1); CREATININE 0.9 mg/dl (0.6-1.3); POTASSIUM 4.4 mmol/L (3.5-5.1); SGPT/ALT 29.4 U/L (7-52); TOT PROT 5.8 g/dl (6.4-8.2)
[2022-09-27 11:28] LABS: VENOUS BASE EXCESS -2.4 mmol/L (-2-2); VENOUS O2 SATURATION 70.9 % (70-80); VENOUS PCO2 51.3 mmHg (38-52); VENOUS PH 7.296 (7.310-7.410)
[2022-09-27 11:37] LABS: N-TERMINAL BNP 3277.1 pg/ml (5-450)
[2022-09-27] MEDS ORDERED: CEFTRIAXONE 1 GM in DEXTROSE 5%-WATER - 50 ML IVPB ONE (13:39)
[2022-09-27] MEDS ORDERED: DOXYCYCLINE INJECTION 100 MG in DEXTROSE 5%-WATER 100 ML IVPB ONE (13:39)
[2022-09-27] MEDS ORDERED: ACETAMINOPHEN 325 MG TABLET (FP) PO PRN (13:51)
[2022-09-27] MEDS ORDERED: FUROSEMIDE 40 MG/4 ML INJECTABLE VIAL IVPUSH ONE (13:52)
[2022-09-27] MEDS ORDERED: cefTRIAXone SODIUM 1 GM VIAL ONE (14:00)
[2022-09-27] MEDS ORDERED: DOXYCYCLINE HYCLATE 100 MG VIAL ONE (14:00)
[2022-09-27] MEDS ORDERED: FUROSEMIDE 40 MG/4 ML INJECTABLE VIAL ONE (14:56)
[2022-09-27] MEDS: DOCUSATE SODIUM 100 MG CAPSULE (FP) PO SCH ×2 (15:53→21:35)
[2022-09-27] MEDS: ALBUTEROL SO4 2.5/IPRATROPIUM 0.5 INH SOL 3 ML VIAL.NEB. NEB SCH ×2 (16:15→21:34)
[2022-09-27 16:34] VITALS: BMI 33.5
[2022-09-27] MEDS: BUDESONIDE/FORMETEROL FUMARATE 160/4.5 mcg INHALER IH SCH (21:36)
[2022-09-27] MEDS: ATORVASTATIN CA 80 MG TABLET (FP) PO SCH (21:36)
[2022-09-27] MEDS ORDERED: SENNOSIDES 8.6MG TABLET (FP) PO SCH (22:00)
[2022-09-27] MEDS ORDERED: POLYETHYLENE GLYCOL (HEALTHYLAX) 3350 17 GM PACKET PO SCH (22:00)
[2022-09-28] MEDS: DOCUSATE SODIUM 100 MG CAPSULE (FP) PO SCH ×3 (06:18→21:24)
[2022-09-28] MEDS: ALBUTEROL SO4 2.5/IPRATROPIUM 0.5 INH SOL 3 ML VIAL.NEB. NEB SCH ×4 (07:05→20:18)
[2022-09-28 08:26] LABS: HEMATOCRIT 33.1 % (32.4-45.2); MCH 31.9 pg (25.7-33.7); MCHC 33.1 g/dl (32.0-36.0); MEAN CELL VOLUME 96.6 fl (80-96); MEAN PLT VOLUME 7.3 fl (7.5-11.1); RBC 3.43 10^6/uL (3.60-5.2); RDW 15.2 % (11.6-15.6); WHITE BLOOD COUNT 10.6 10^3/uL (4.0-10.8)
[2022-09-28 08:45] LABS: BLOOD UREA NITROGEN 19.7 mg/dl (7-18); CALCIUM 8.6 mg/dl (8.5-10.1); CREATININE 0.9 mg/dl (0.6-1.3); PHOSPHOROUS 2.95 (2.5-4.9); POTASSIUM 4.5 mmol/L (3.5-5.1)
[2022-09-28] MEDS: CEFTRIAXONE 1 GM in DEXTROSE 5%-WATER - 50 ML IVPB SCH (09:45)
[2022-09-28] MEDS: ISOSORBIDE MONONITRATE 30 MG TAB.SR.24H (FP) PO SCH (09:46)
[2022-09-28] MEDS: PANTOPRAZOLE 40 MG TABLET PO SCH (09:46)
[2022-09-28] MEDS: LACTOBACILLUS ACIDOPHILUS 1 TABLET PO SCH (09:46)
[2022-09-28] MEDS: metoPROLOL SUCCINATE 25 MG TAB.SR.24H (FP) PO SCH (09:46)
[2022-09-28] MEDS: ASPIRIN 81 MG CHEWABLE TABLETS PO SCH (09:46)
[2022-09-28] MEDS: SERTRALINE HCL 25 MG TABLET (FP) PO SCH (09:46)
[2022-09-28] MEDS: LORATADINE 10 MG TABLET PO SCH (09:46)
[2022-09-28] MEDS: amLODIPine BESYLATE 5 MG TABLET (FP) PO SCH (09:46)
[2022-09-28] MEDS: CHOLECALCIFEROL (VIT D3) 1,000 UNIT (25 MCG) TABLET PO SCH (09:46)
[2022-09-28] MEDS: BUDESONIDE/FORMETEROL FUMARATE 160/4.5 mcg INHALER IH SCH ×2 (09:47→21:23)
[2022-09-28] MEDS: POLYETHYLENE GLYCOL (HEALTHYLAX) 3350 17 GM PACKET PO SCH (09:47)
[2022-09-28] MEDS: predniSONE 20 MG TABLET (UD) PO SCH (09:47)
[2022-09-28] MEDS ORDERED: AZITHROMYCIN IVPB 500 MG in DEXTROSE 5%-WATER - 250 ML IVPB SCH (10:00)
[2022-09-28] MEDS ORDERED: amLODIPine BESYLATE 5 MG TABLET (FP) PO SCH (10:00)
[2022-09-28] MEDS ORDERED: FUROSEMIDE 40 MG/4 ML INJECTABLE VIAL IVPUSH ONE (10:53)
[2022-09-28] MEDS: ATORVASTATIN CA 80 MG TABLET (FP) PO SCH (21:24)
[2022-09-28] MEDS: SENNOSIDES 8.6MG TABLET (FP) PO SCH (21:24)
[2022-09-29] MEDS: DOCUSATE SODIUM 100 MG CAPSULE (FP) PO SCH ×3 (06:15→21:24)
[2022-09-29] MEDS: ISOSORBIDE MONONITRATE 30 MG TAB.SR.24H (FP) PO SCH ×2 (06:16→09:43)
[2022-09-29] MEDS: ALBUTEROL SO4 2.5/IPRATROPIUM 0.5 INH SOL 3 ML VIAL.NEB. NEB SCH ×5 (06:16→20:37)
[2022-09-29] MEDS: guaiFENesin/D-METHORPHAN HB 10 ML UNIT-DOSE CUPS PO PRN (06:16)
[2022-09-29] MEDS: metoPROLOL SUCCINATE 25 MG TAB.SR.24H (FP) PO SCH ×2 (06:17→09:44)
[2022-09-29 08:11] LABS: HEMATOCRIT 33.1 % (32.4-45.2); HEMOGLOBIN 10.8 G/dL (10.7-15.3); MCH 31.3 pg (25.7-33.7); MCHC 32.7 g/dl (32.0-36.0); MEAN CELL VOLUME 95.8 fl (80-96); MEAN PLT VOLUME 7.3 fl (7.5-11.1); PLATELET COUNT 259.3 10^3/uL (134-434); RBC 3.45 10^6/uL (3.60-5.2); WHITE BLOOD COUNT 10.9 10^3/uL (4.0-10.8)
[2022-09-29] MEDS ORDERED: FUROSEMIDE 40 MG/4 ML INJECTABLE VIAL IVPUSH ONE (08:49)
[2022-09-29 09:15] LABS: BLOOD UREA NITROGEN 20.8 mg/dl (7-18); CALCIUM 8.5 mg/dl (8.5-10.1); CREATININE 0.9 mg/dl (0.6-1.3); POTASSIUM 4.4 mmol/L (3.5-5.1)
[2022-09-29] MEDS: ASPIRIN 81 MG CHEWABLE TABLETS PO SCH (09:43)
[2022-09-29] MEDS: AZITHROMYCIN IVPB 500 MG/250 ML BAG IVPB SCH (09:43)
[2022-09-29] MEDS: amLODIPine BESYLATE 5 MG TABLET (FP) PO SCH (09:43)
[2022-09-29] MEDS: SERTRALINE HCL 25 MG TABLET (FP) PO SCH (09:44)
[2022-09-29] MEDS: CHOLECALCIFEROL (VIT D3) 1,000 UNIT (25 MCG) TABLET PO SCH (09:44)
[2022-09-29] MEDS: predniSONE 20 MG TABLET (UD) PO SCH (09:44)
[2022-09-29] MEDS: PANTOPRAZOLE 40 MG TABLET PO SCH (09:44)
[2022-09-29] MEDS: LORATADINE 10 MG TABLET PO SCH (09:44)
[2022-09-29] MEDS: LACTOBACILLUS ACIDOPHILUS 1 TABLET PO SCH (09:44)
[2022-09-29] MEDS: POLYETHYLENE GLYCOL (HEALTHYLAX) 3350 17 GM PACKET PO SCH (09:45)
[2022-09-29] MEDS: BUDESONIDE/FORMETEROL FUMARATE 160/4.5 mcg INHALER IH SCH ×2 (09:45→21:25)
[2022-09-29] MEDS: CEFTRIAXONE 1 GM in DEXTROSE 5%-WATER - 50 ML IVPB SCH (09:46)
[2022-09-29] MEDS: ATORVASTATIN CA 80 MG TABLET (FP) PO SCH (21:24)
[2022-09-29] MEDS: SENNOSIDES 8.6MG TABLET (FP) PO SCH (21:24)
[2022-09-30] MEDS: guaiFENesin/D-METHORPHAN HB 10 ML UNIT-DOSE CUPS PO PRN (00:13)
[2022-09-30] MEDS: DOCUSATE SODIUM 100 MG CAPSULE (FP) PO SCH ×2 (06:38→17:24)
[2022-09-30 08:27] LABS: HEMATOCRIT 32.8 % (32.4-45.2); HEMOGLOBIN 10.6 G/dL (10.7-15.3); MCH 31.3 pg (25.7-33.7); MCHC 32.4 g/dl (32.0-36.0); MEAN CELL VOLUME 96.6 fl (80-96); MEAN PLT VOLUME 7.3 fl (7.5-11.1); RDW 15.3 % (11.6-15.6); WHITE BLOOD COUNT 10.5 10^3/uL (4.0-10.8)
[2022-09-30] MEDS: ALBUTEROL SO4 2.5/IPRATROPIUM 0.5 INH SOL 3 ML VIAL.NEB. NEB SCH ×3 (08:30→16:25)
[2022-09-30 09:45] LABS: CALCIUM 8.4 mg/dl (8.5-10.1); CREATININE 0.9 mg/dl (0.6-1.3); MAGNESIUM 2.2 mg/dL (1.8-2.4); PHOSPHOROUS 3.4 (2.5-4.9); POTASSIUM 4.4 mmol/L (3.5-5.1)
[2022-09-30] MEDS: predniSONE 20 MG TABLET (UD) PO SCH (11:27)
[2022-09-30] MEDS: ISOSORBIDE MONONITRATE 30 MG TAB.SR.24H (FP) PO SCH (11:27)
[2022-09-30] MEDS: SERTRALINE HCL 25 MG TABLET (FP) PO SCH (11:27)
[2022-09-30] MEDS: PANTOPRAZOLE 40 MG TABLET PO SCH (11:28)
[2022-09-30] MEDS: ASPIRIN 81 MG CHEWABLE TABLETS PO SCH (11:28)
[2022-09-30] MEDS: amLODIPine BESYLATE 5 MG TABLET (FP) PO SCH (11:28)
[2022-09-30] MEDS: LACTOBACILLUS ACIDOPHILUS 1 TABLET PO SCH (11:28)
[2022-09-30] MEDS: LORATADINE 10 MG TABLET PO SCH (11:28)
[2022-09-30] MEDS: CEFTRIAXONE 1 GM in DEXTROSE 5%-WATER - 50 ML IVPB SCH (11:29)
[2022-09-30] MEDS: POLYETHYLENE GLYCOL (HEALTHYLAX) 3350 17 GM PACKET PO SCH (11:29)
[2022-09-30] MEDS: AZITHROMYCIN IVPB 500 MG/250 ML BAG IVPB SCH (11:30)
[2022-09-30] MEDS: BUDESONIDE/FORMETEROL FUMARATE 160/4.5 mcg INHALER IH SCH (11:30)
[2022-09-30] MEDS: metoPROLOL SUCCINATE 25 MG TAB.SR.24H (FP) PO SCH (11:31)
[2022-09-30 11:56] VITALS: RESP 18
[2022-09-30] MEDS: CHOLECALCIFEROL (VIT D3) 1,000 UNIT (25 MCG) TABLET PO SCH (12:39)
[2022-09-30 14:38] VITALS: BP 154/70; PULSE 71; TEMP 98.9
== END 2022-09-30 18:10 | disposition home or self-care (01) ==
LOC: FER 08:07 → INTOOBSV 13:40 → UNDOADMOB 13:40 → FM/S 13:40
PROVIDERS: ADMIT Internal Medicine; ATTEND Internal Medicine
PROC: 3E0F7GC Introduction of Other Therapeutic Substance into Respiratory Tract, Via Natural or Artificial Opening (ICD-10-PCS; principal; 2022-09-27)
PROC: 3E03329 Introduction of Other Anti-infective into Peripheral Vein, Percutaneous Approach (ICD-10-PCS; 2022-09-27)
PROC: 3E033GC Introduction of Other Therapeutic Substance into Peripheral Vein, Percutaneous Approach (ICD-10-PCS; 2022-09-27)
DX: J44.1 Chronic obstructive pulmonary disease with (acute) exacerbation (principal); I11.0 Hypertensive heart disease with heart failure; I50.9 Heart failure, unspecified; E11.9 Type 2 diabetes mellitus without complications; A15.8 Other respiratory tuberculosis; Z91.013 Allergy to seafood; Z91.010 Allergy to peanuts
CPT/HCPCS: 0241U-QW; 36415; 71045-TC-FY; 71275-TC; 80048; 80053; 82803; 83735; 83880; 84100; 84484; 85027; 85379; 85610; 85730; 93005; 94640; 94761; 96365; 96366; 96367; 96368; 96375; 96376; 99285-25; G0378; Q9967

== ENCOUNTER 2022-11-16 15:05 | Emergency (ER) | payer OTHER, MEDICARE ==
[2022-11-16 15:30] VITALS: BP 143/53; PULSE 90; RESP 18; TEMP 98.1; BMI 32.4
[2022-11-16] MEDS ORDERED: AZITHROMYCIN 250 MG TABLET PO ONE (15:45)
[2022-11-16] MEDS ORDERED: predniSONE 20 MG TABLET (UD) PO ONE (15:46)
[2022-11-16] MEDS ORDERED: predniSONE 20 MG TABLET (UD) ONE (15:48)
[2022-11-16] MEDS ORDERED: AZITHROMYCIN 500 MG TABLET ONE (15:48)
[2022-11-16] MEDS ORDERED: predniSONE 10 MG TABLET (UD) ONE (15:49)
[2022-11-16 16:13] LABS: HEMATOCRIT 38.7 % (32.4-45.2); HEMOGLOBIN 12.9 G/dL (10.7-15.3); MCH 30.9 pg (25.7-33.7); MCHC 33.3 g/dl (32.0-36.0); MEAN CELL VOLUME 93.1 fl (80-96); MEAN PLT VOLUME 7.9 fl (7.5-11.1); PLATELET COUNT 239.5 10^3/uL (134-434); RBC 4.16 10^6/uL (3.60-5.2); RDW 14.1 % (11.6-15.6); WHITE BLOOD COUNT 9.4 10^3/uL (4.0-10.8)
[2022-11-16] MEDS ORDERED: ALBUTEROL SO4 2.5/IPRATROPIUM 0.5 INH SOL 3 ML VIAL.NEB. NEB ONE (16:14)
[2022-11-16] MEDS: ALBUTEROL SO4 2.5/IPRATROPIUM 0.5 INH SOL 3 ML VIAL.NEB. NEB SCH ×2 (16:19→16:31)
[2022-11-16 16:36] LABS: ALBUMIN 4.1 g/dl (3.4-5.0); BILIRUBIN,TOTAL 0.5 mg/dl (0.2-1); BLOOD UREA NITROGEN 25.5 mg/dl (7-18); CALCIUM 9.2 mg/dl (8.5-10.1); CREATININE 1.1 mg/dl (0.6-1.3); POTASSIUM 3.9 mmol/L (3.5-5.1); SGOT/AST 18.5 U/L (15-37); TOT PROT 6.6 g/dl (6.4-8.2)
[2022-11-17] MEDS ORDERED: predniSONE 20 MG TABLET (UD) PO ONE (15:46)
== END 2022-11-16 17:51 | disposition home or self-care (01) ==
LOC: FER 15:05
PROC: 3E0F7GC Introduction of Other Therapeutic Substance into Respiratory Tract, Via Natural or Artificial Opening (ICD-10-PCS; principal; 2022-11-16)
DX: R05.9 Cough, unspecified (principal); R09.3 Abnormal sputum; J44.1 Chronic obstructive pulmonary disease with (acute) exacerbation; Z20.822 Contact with and (suspected) exposure to COVID-19
CPT/HCPCS: 0241U-QW; 36415; 71046-TC-FY; 80053; 85025; 99284-25

== ENCOUNTER 2023-05-22 04:41 | Day surgery (SDC) | payer OTHER, MEDICARE ==
[2023-05-21 15:13] VITALS: BMI 33.0
[2023-05-22] MEDS ORDERED: MIDAZOLAM HCL 2 MG/2 ML SINGLE DOSE VIAL ONE (12:56)
[2023-05-22] MEDS ORDERED: FENTANYL CITRATE/PF 50 MCG/ML VIAL ONE (12:58)
[2023-05-22] MEDS: TETRACAINE/BENZOCAINE/BUTAMBEN 20 GM SPR TP ONE (13:10)
[2023-05-22 13:44] VITALS: TEMP 97.5
[2023-05-22 14:14] VITALS: BP 125/55; PULSE 64; RESP 17
== END 2023-05-22 14:25 | disposition home or self-care (01) ==
LOC: JASU-ENDO 04:41
PROVIDERS: ATTEND Internal Medicine Gastroenterology
PROC: 0D758ZZ Dilation of Esophagus, Via Natural or Artificial Opening Endoscopic (ICD-10-PCS; principal; 2023-05-22 12:30)
DX: R13.10 Dysphagia, unspecified (principal); K21.00 Gastro-esophageal reflux disease with esophagitis, without bleeding

== ENCOUNTER 2023-11-27 04:35 | Day surgery (SDC) | payer OTHER, MEDICARE ==
[2023-11-14 15:37] VITALS: BMI 32.3
[2023-11-27] MEDS ORDERED: ALBUTEROL SO4 HFA INHALER IH ONE (09:28)
[2023-11-27 10:12] VITALS: TEMP 98
[2023-11-27 10:46] VITALS: BP 144/82; PULSE 70; RESP 17
== END 2023-11-27 10:45 | disposition home or self-care (01) ==
LOC: JASU-ENDO 04:35
PROVIDERS: ATTEND Internal Medicine Gastroenterology
PROC: 0D728DZ Dilation of Middle Esophagus with Intraluminal Device, Via Natural or Artificial Opening Endoscopic (ICD-10-PCS; 2023-11-27)
PROC: 0DB28ZX Excision of Middle Esophagus, Via Natural or Artificial Opening Endoscopic, Diagnostic (ICD-10-PCS; principal; 2023-11-27 09:00)
DX: K22.2 Esophageal obstruction (principal); K21.00 Gastro-esophageal reflux disease with esophagitis, without bleeding
CPT/HCPCS: 82962; 88305-TC; 88312-TC; 88341-TC; 88342-TC